=== PATIENT | female | born 1960 | race Caucasian/White ===

== ENCOUNTER 2022-08-23 07:40 | Outpatient (REF) | payer OTHER, SELFPAY ==
--- NOTE | ~2022-08-23 | US_ITS ---
EXAMINATION: US ABDOMEN COMPLETE CLINICAL INFORMATION: Other specified disease of liver. Rule out hepatic cyst. COMPARISON: None TECHNIQUE: Real-time imaging of the abdominal viscera. FINDINGS: PANCREAS: Normal. ABDOMINAL AORTA: The proximal, mid, and distal segments are normal in caliber. INFERIOR VENA CAVA: Visualized portions are normal. LIVER: The liver is normal in size. The liver contour is normal. There is diffuse increased liver parenchymal echogenicity. Within the right hepatic lobe, a 1.5 cm in maximal diameter anechoic, simple cyst is seen. There is no intrahepatic biliary duct dilatation seen. GALLBLADDER: Surgically absent. COMMON BILE DUCT: Normal in caliber measuring 0.8 cm in diameter. RIGHT KIDNEY: At the interpolar aspect laterally, a 1.0 cm in maximal diameter anechoic, simple cyst is seen. No hydronephrosis or renal calculi. The kidney measures 10.6 cm in maximum dimension. LEFT KIDNEY: Normal. No hydronephrosis. No renal calculi or focal parenchymal lesions. The kidney measures 11.9 cm in maximum dimension. SPLEEN: Normal. The spleen measures 10.6 cm in maximum dimension. FREE FLUID: None. US/US abdomen complete IMPRESSION: 1. There is generalized increase in hepatic echotexture, consistent with fatty infiltration or hepatocellular disease. Please correlate clinically. No focal hepatic mass or intrahepatic biliary dilatation is seen. 2. Simple hepatic and right renal cysts are noted, for which no imaging follow-up is recommended. 3. The gallbladder surgically absent.
== END 2022-08-23 07:41 | disposition home or self-care (01) ==
LOC: HO.US 07:40
PROVIDERS: PCP Internal Medicine; Visit Provider Physician Assistant
DX: K76.89 Other specified diseases of liver (principal)
CPT/HCPCS: 76700

== ENCOUNTER 2024-02-07 08:53 | Outpatient (AMB) | payer OTHER, SELFPAY ==
--- NOTE | 2024-02-07 08:56 | A.OFFPC_ITS ---
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 Intake Note: New patient visit Hris Manager Required: No Allergies cat dander Allergy (Unknown, Verified 02/07/24 08:56) Unknown grass Allergy (Unknown, Uncoded 02/07/24 08:56) Unknown Medication List - Last Reconciled 02/07/24 by Renetta Olmstead PA-C lisinopril 5 mg PO DAILY loratadine 10 mg PO DAILY venlafaxine 25 mg PO DAILY Tobacco use date assessed: 02/07/24 Fall risk assessment: No Falls in past year Last assessed Fall Risk: 02/07/24 Dental Screening Dental Screen Date: 02/07/24 Did you have a dental visit in the last 12 months?: Yes Did you have a dental problem in the last 6 months where you did not have access to dental care?: No Was dental information given to patient?: Patient has dentist HPI 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 She was last seen by myself at [facility] in July. She has a significant past medical history of hypertension, impaired fasting glucose, hyperlipidemia, Raynaud's, psoriasis, ulcerative colitis and history of endometrial cancer. At our last visit she was being worked up for her easy bruising and she was ultimately seen by the [facility] and diagnosed with congenital dysfibrinogenemia. 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 Given the history of mild bruising and no history of congenital bleeding disorder the recommendation was that she likely does not need prophylactic intervention for elective procedures but for procedures that do carry a significant risk of life-threatening bleeding it would be prudent to have FFP on standby. h CV: Blood pressure today in the office is WNL. She states that they have been normal at home and she is on lisinopril 5 mg. She has been working hard on her diet. Her last lipids in March were WNL. Psych: On venlafaxine for postmenopausal hot flashes. Doing well with this. Overdue for a bone density. Derm: She did see Dr. Ng in the past and he diagnosed her with psoriasis but she states that she does not think she has this and would like a 2nd opinion. She also needs a full skin check. Colonoscopy: Up-to-date, follows with [facility] for GI. Her last colonoscopy was 4 years ago and she has not had a flare-up of her ulcerative colitis in over 3 years. 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 Mammo: Up-to-date, 2022 and scheduled in February at [facility] of this year Bone density: Due. [facility] Medical History (Updated 02/07/24 @ 10:39 by Renetta Olmstead PA-C) Congenital dysfibrinogenemia Urinary incontinence Ulcerative colitis Sacral radiculitis Raynauds syndrome Psoriasis Menopausal flushing Lumbar pain with radiation down right leg Impaired fasting glucose Hyperlipidemia HTN (hypertension) Hot flashes Fatty liver Endometrial cancer Surgical History (Updated 02/07/24 @ 09:12 by Kristin Escobar CMA) History of hysterectomy History of dilatation and curettage H/O vein stripping Hx of cholecystectomy Family History (Updated 02/07/24 @ 09:15 by Kristin Escobar CMA) Mother Aneurysm HTN (hypertension) Father HTN (hypertension) Heart attack Maternal Grandmother Cancer of stomach Paternal Grandmother Cancer of breast Other Cancer of lung Cancer of skin FH: throat cancer Social History Housing: House Patient Tobacco Use Status: Former Tobacco user Cigarette Packs Per Day: 1 Years Smoked: 8 e-Cigarette/Vaping Use: Never Used service: No Current occupational status: employed 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 1. Little interest or pleasure in doing things: not at all 2. Feeling down, depressed, or hopeless: not at all 3. Trouble falling or staying asleep, or sleeping too much: not at all 4. Feeling tired or having little energy: not at all 5. Poor appetite or overeating: not at all 6. Feeling bad about yourself - or that you are a failure or have let yourself or your family down: not at all 7. Trouble concentrating on things, such as reading the newspaper or watching television: not at all 8. Moving or speaking so slowly that other people could have noticed. Or the opposite - being so fidgety or restless that you have been moving around a lot more than usual: not at all 9. Thoughts that you would be better off or of hurting yourself in some way: not at all Total score: 0 Depression Screening Interpretation: Negative Depression Screening Done: Yes [id number] - PHQ-9 Billing: Yes Source: Developed by Drs. Tunde Julio, Sheila Walker, Sony Tilley and colleagues, with an educational robert from [employer]. Thrive Questionnaire Date Thrive assessed: 02/07/24 I am a: Patient What is your living situation today?: I have a steady place to live Within the past 12 months, did the food you bought not last and you didn't have the money to get more?: Never true Within the past 12 months, did you worry whether your food would run out before you got money to buy more?: Never true Do you have trouble paying for medicines?: No Do you have trouble getting transportation to medical appointments?: No Do you have trouble paying your heating and electricity bill?: No Do you have trouble taking care of your child, family member or friend?: No Do you have trouble with day-to-day activities such as bathing, preparing meals, shopping, managing finances, etc.?: No Are you currently unemployed and looking for a job?: No Are you interested in more education?: No Please select the resources that you would like help with: None Currently or been in a relationship where the following occur: No concerns reported THRIVE Score: 0 AUDIT C Alcohol Use Questionnaire (AUDIT-C) 1. How often do you have a drink containing alcohol?: 2-4 times a month 2. How many drinks containing alcohol do you have on a typical day when you are drinking?: 1 or 2 3. How often do you have six or more drinks on one occasion?: Never Total Score: 2 SOPHIE-7 AMB Questionnaire SOPHIE-7 Date SOPHIE - 7 assessed: 02/07/24 Feeling nervous, anxious, or on edge: 0 = Not at all Not being able to stop or control worryin = Not at all Trouble relaxin = Not at all Being so restless that it is hard to sit still: 0 = Not at all Becoming easily annoyed or irritable: 0 = Not at all Feeling afraid as if something awful might happen: 0 = Not at all Source: Developed by Drs. Tunde Julio, Sheila Walker, Sony Tilley and colleagues, with an educational robert from [employer]. SOPHIE-7 Assessment Billing SOPHIE-7 Assessment Tool: SOPHIE-7 Assessment 33782 Physical exam (Primary Care) Vital Signs: Last Vital Signs Temp 98 F 02/07/24 09:05 Pulse 62 02/07/24 09:05 Resp 12 02/07/24 09:05 BP 116/70 02/07/24 09:05 Pulse Ox 99 02/07/24 09:05 Oxygen Delivery Method Room Air 02/07/24 09:05 BMI result Body Mass Index 25.3 Tobacco/Smoking Status: Tobacco use Status Tobacco use date assessed 02/07/24 02/07/24 09:17 Patient Tobacco Use Status Former Tobacco user 02/07/24 09:04 e-Cigarette/Vaping Use Never Used 02/07/24 09:04 PHQ-9: PHQ-9 Score PHQ-9: Total score 0 02/07/24 09:16 Depression Screening Interpretation: Negative Thrive Assessment: Date of Thrive Assessment Date Thrive assessed 02/07/24 02/07/24 09:16 Currently or been in a relationship where the following occur: No concerns reported Const Orientation/consciousness: patient oriented x3 HENMT Ears: hearing grossly normal bilaterally Neck Thyroid: Thyroid normal Lymphatic: no lymphadenopathy noted Resp Auscultation: clear to auscultation bilaterally Cardio Rate: regular rate Rhythm: regular rhythm Heart sounds: S1 normal heart sound present and S2 normal heart sound present GI Inspection: Yes normal to inspection Palpation (GI): Soft to palpation and Other GI palpation findings present (nontender, no cva tenderness) Auscultation: normoactive bowel sounds Rectal Exam - Female: deferred Skin General skin exam: no rashes or lesions noted Neuro General: patient oriented x3, gait normal and no focal motor deficits Assessment and Plan Assessment & Plan (1) Congenital dysfibrinogenemia: Code(s): D68.2 - Hereditary deficiency of other clotting factors Plan: Reviewed report from [facility]. We will scan into chart. (2) Ulcerative colitis: Code(s): K51.90 - Ulcerative colitis, unspecified, without complications Qualifiers: Ulcerative colitis location: unspecified ulcerative colitis location Digestive disease complication type: without complication Qualified Code(s): K51.90 - Ulcerative colitis, unspecified, without complications Plan: Continue following with [facility] (3) Impaired fasting glucose: Code(s): R73.01 - Impaired fasting glucose Plan: a1c ordered (4) HTN (hypertension): Code(s): I10 - Essential (primary) hypertension Qualifiers: Hypertension type: primary hypertension Qualified Code(s): I10 - Essential (primary) hypertension Plan: continue current plan (5) Psoriasis: Code(s): L40.9 - Psoriasis, unspecified Plan: referral to [facility]. number provided Orders: Orders Lipid Panel Today D68.2 - Hereditary deficiency of other clotting factors, I10 - Essential (primary) hypertension, K51.90 - Ulcerative colitis, unspecified, without complications, R73.01 - Impaired fasting glucose Vitamin D 1,25 dihydroxy Today D68.2 - Hereditary deficiency of other clotting factors, I10 - Essential (primary) hypertension, K51.90 - Ulcerative colitis, unspecified, without complications, R73.01 - Impaired fasting glucose Hemoglobin A1c Today D68.2 - Hereditary deficiency of other clotting factors, I10 - Essential (primary) hypertension, K51.90 - Ulcerative colitis, unspecified, without complications, R73.01 - Impaired fasting glucose Magnesium Today D68.2 - Hereditary deficiency of other clotting factors, I10 - Essential (primary) hypertension, K51.90 - Ulcerative colitis, unspecified, without complications, R73.01 - Impaired fasting glucose XR DEXA axial skeleton Today Z78.0 - Asymptomatic menopausal state Comprehensive Met. Panel Today D68.2 - Hereditary deficiency of other clotting factors, I10 - Essential (primary) hypertension, K51.90 - Ulcerative colitis, unspecified, without complications, R73.01 - Impaired fasting glucose Ferritin Today D68.2 - Hereditary deficiency of other clotting factors, I10 - Essential (primary) hypertension, K51.90 - Ulcerative colitis, unspecified, without complications, R73.01 - Impaired fasting glucose Complete Blood Count Auto Diff Today D68.2 - Hereditary deficiency of other clotting factors, I10 - Essential (primary) hypertension, K51.90 - Ulcerative colitis, unspecified, without complications, R73.01 - Impaired fasting glucose TSH reflex Free T4 Today D68.2 - Hereditary deficiency of other clotting factors, I10 - Essential (primary) hypertension, K51.90 - Ulcerative colitis, unspecified, without complications, R73.01 - Impaired fasting glucose Vitamin B12 and Folate Today D68.2 - Hereditary deficiency of other clotting factors, I10 - Essential (primary) hypertension, K51.90 - Ulcerative colitis, unspecified, without complications, R73.01 - Impaired fasting glucose IRON PROFILE Today D68.2 - Hereditary deficiency of other clotting factors, I10 - Essential (primary) hypertension, K51.90 - Ulcerative colitis, unspecified, without complications, R73.01 - Impaired fasting glucose Referrals Dermatology Referral L40.9 - Psoriasis, unspecified Medications: New lisinopril 5 mg PO DAILY 90 tabs 3RF venlafaxine 25 mg PO DAILY 90 tabs 3RF loratadine 10 mg PO DAILY 90 tabs 3RF Coding Level of Care Code Est Pt Level 4 (36885) Complex EM visit Add On G2211 Diagnoses Congenital dysfibrinogenemia D68.2 Ulcerative colitis without complications, unspecified location K51.90 Ulcerative colitis location: unspecified ulcerative colitis location Digestive disease complication type: without complication Impaired fasting glucose R73.01 Primary hypertension I10 Hypertension type: primary hypertension Psoriasis L40.9 Additional Codes SOPHIE-7 Assessment Billing - SOPHIE-7 Assessment Tool: SOPHIE-7 Assessment 11381 ([id number])
[2024-02-07 09:05] VITALS: BP 116/70; PULSE 62; RESP 12; TEMP 36.6; O2SAT 99; BMI 25.3
== END 2024-02-07 09:44 | disposition home or self-care (01) ==
PROVIDERS: PCP Physician Assistant; Visit Provider Physician Assistant
DX: D68.2 Hereditary deficiency of other clotting factors (principal); K51.90 Ulcerative colitis, unspecified, without complications; R73.01 Impaired fasting glucose; I10 Essential (primary) hypertension; L40.9 Psoriasis, unspecified
CPT/HCPCS: 99214

== ENCOUNTER 2024-02-07 10:04 | Outpatient (REF) | payer OTHER, SELFPAY ==
[2024-02-07 11:57] LABS: MANUAL DIFF FLAG NO
[2024-02-07 12:01] LABS: Basophils Percent Auto 0.2 % (0-2); Eosinophils Percent Auto 0.3 % (0-4); Hematocrit 39.5 % (37.0-47.0); Imm Gran Abs Auto 0.06 X10*3/uL (0.00-0.03); Imm Gran Pct Auto 0.6 % (0.0-0.4); Lymphocytes Absolute Auto 1.7 X10*3/uL (1.2-4.9); Lymphocytes Percent Auto 15.7 % (20-40); Mean Corpuscular HGB Conc 32.9 g/dl (31.0-35.0); Mean Corpuscular Hemoglobin 29.2 pg (27.0-33.0); Mean Corpuscular Volume 88.8 fL (80.0-98.0); Mean Platelet Volume 9.9 fL (9.4-12.3); Monocytes Absolute Auto 0.9 X10*3/uL (0.1-1.2); Monocytes Percent Auto 8.1 % (2-11); Neutrophils Absolute Auto 8.1 x10*3/uL (2.0-8.3); Neutrophils Percent Auto 75.1 % (45-73); Platelet Count 309 X10*3/uL (160-400); Red Blood Count 4.45 X10*6/uL (4.20-5.50); Red Cell Distribution Width 14.1 % (11.0-16.0); White Blood Count 10.7 X10*3/uL (4.8-10.8)
[2024-02-07 12:30] LABS: Estimated Average Glucose 117 mg/dL; Hemoglobin A1c % 5.7 % (<6.0)
[2024-02-07 13:30] LABS: Alanine Aminotransferase 21 U/L (0-31); Albumin Level 4.2 g/dL (3.5-5.0); Alkaline Phosphatase 66 U/L (39-117); Anion Gap 11 (12-20); Aspartate Amino Transferase 17 U/L (5-31); Bilirubin Total 0.4 mg/dL (0.0-1.0); Blood Urea Nitrogen 19 mg/dL (9-16); Calcium 9.5 mg/dL (8.4-10.2); Carbon Dioxide 29 mmol/L (22-29); Chloride 100 mmol/L (96-108); Cholesterol 195 mg/dL (<200); Estimated Glomerular Filt Rate > 60; Glucose Random 97 mg/dL (60-115); HDL Cholesterol 69 mg/dL (>40); Iron 100 mcg/dL (30-160); LDL Cholesterol Calculated 100 mg/dL (<100); Magnesium 2.4 mg/dL (1.6-2.6); Percent Iron Saturation 31 % (15-50); Potassium 4.2 mmol/L (3.3-5.1); Sodium 136 mmol/L (135-145); Total Iron Binding Capacity 320 mcg/dL (228-428); Total Protein 6.6 g/dL (6.5-8.0); Triglycerides 132 mg/dL (<150); Unsaturated Iron Binding 220 ug/dL
[2024-02-07 13:48] LABS: Ferritin 159 ng/mL (10-250); Folate 12.1 ng/mL (> or = 4.0); TSH reflex Free T4 0.89 uIU/mL (0.32-4.0); Vitamin B12 334 pg/mL (200-900)
[2024-02-11 17:49] LABS: VITAMIN D (1,25 OH) D3 57 pg/mL; Vit D (1,25-Dihydroxy) Total 57 pg/mL (18-72); Vitamin D (1,25 OH) D2 <8 pg/mL
== END 2024-02-07 10:05 | disposition home or self-care (01) ==
LOC: HO.WFDLDS 10:04
PROVIDERS: Visit Provider Physician Assistant
DX: D68.2 Hereditary deficiency of other clotting factors (principal); K51.90 Ulcerative colitis, unspecified, without complications; R73.01 Impaired fasting glucose; I10 Essential (primary) hypertension
CPT/HCPCS: 36415; 80053; 80061; 82607; 82652; 82728; 82746; 83036; 83540; 83735; 84443; 85025

== ENCOUNTER 2024-08-01 07:51 | Outpatient (AMB) | payer OTHER, SELFPAY ==
--- OUTSIDE RECORDS SUMMARY | 2024-08-01 07:53 | XMS_ITS | Continuity of Care Document ---
Author Organization [facility] y Address [address] [place] [address] Jeny mendoza, [address] [place] [address]- Care Team Providers Care Wirer Passenger Car Name Role Phone Renetta Bagley Primary Care Physician Encounter [facility] Date(s): 06/11/24 - 07/11/[address] [place], [place] [address] Encounter Type: Triage Allergies, Adverse Reactions, Alerts Substance Criticality Severity Reaction Reaction Severity Status aspirin Active Cats High criticality Moderate congestion Ac tive Grass Active Immunizations Given and Recorded Vaccine Date Status Refusal Reason influenza virus vaccine, inactivated 05/06/23 Ryan rded influenza virus vaccine, inactivated 05/02/22 Give n influenza virus vaccine, inactivated 05/04/16 Ryan rded SARS-CoV-2 (COVID-19) mRNA BNT-162b2 vac 06/21/21 Recorded SARS-CoV-2 (COVID-19) mRNA BNT-162b2 vac 11/04/20 Recorded SARS-CoV-2 (COVID-19) mRNA BNT-162b2 vac 10/14/20 Recorded zoster vaccine, inactivated 09/25/18 Recorded zoster vaccine, inactivated 07/14/18 Recorded pneumococcal 23-valent vaccine 06/15/16 Recorded Medications Collagen By Mouth, Daily, 0 Refills, Maintenance, 01/16/24 8:29:00 AM EDT, Partial fill upon patient request if the prescription is for a schedule II opioid drug. Start Date: 01/16/24 Status: Ordered Repeat number: 1 lisinopril 5 mg oral tablet 1, tablet, By Mouth, Daily, # 90 tablet, Refills 1, Maintenance, 06/27/23 7:31:00 PM EST, Route to Pharmacy Electronically, [id number], 168, cm, 06/27/23 12:56:00 EST, Height, 69, kg, 03/13/23 16:30:00 EDT, Dry Weight Start Date: 06/27/23 Status: Ordered Quantity: 90.0 Unit: tablet Repeat number: 1 loratadine 10 mg oral tablet 10 mg, 1, tablet, By Mouth, Daily, # 90 tablet, Refills 3, Tot. Refills 3, Maintenance, 08/01/23 1:23:00 PM EST, Route to Pharmacy Electronically, [facility]/pharmacy #[id number], Partial fill upon patient requestif the prescription is for a schedule II opioid drug., 168, cm, 08/01/23 13:02:00 EST, Height, 69, kg, 03/13/23 16:30:00 EDT, Dry Weight Start Date: 08/01/23 Status: Ordered Quantity: 90.0 Unit: tablet Repeat number: 4 Magnesium Citrate = 100 mg, By Mouth, Daily, Maintenance, 10/24/23 12:42:00 PM EDT Start Date: 10/24/23 Status: Ordered Repeat number: 1 Readi-Cat 2 Smoothie Creamy Vanilla 2% oral suspension See Instructions, If scan before 12PM; drink one bottle before bed, second bottle 90 mins before scan. If scan after noon; drink one bottle at 8 AM, second bottle 90 mins before scan. If scan after 4PM; drink one bottle 6 hours before, second bottle 90 mins before scan., # 2 each, 0 Refills, Maintenance, 04/02/24 2:23:00 PM EDT, [facility]/pharmacy #[id number], Partial fill upon patient request if the prescription is for a schedule II opioid drug., If scan before 12PM; drink one bottle before bed, second bottle 90 mins before scan. ; If scan after noon; drink one bottle at 8 AM, second bottle 90 mins before scan. If scan after 4PM; drink one bottle 6 hours before, second bottle 90 mins before scan., 166.3, cm, 03/26/24 10:10:00 EDT, Height, 70.4, kg, 03/26/24 10:10:00 EDT, Dry Weight Start Date: 04/02/24 Status: Ordered Quantity: 2.0 Unit: each Repeat number: 1 venlafaxine 25 mg oral tablet 1 tablet, By Mouth, Daily, # 90 tablet, 3 Refills, Maintenance, 11/07/23 1:04:00 PM EDT, [id number], 166.3, cm, 10/31/23 13:27:00 EDT, Height, 69.6, kg, 10/31/23 13:27:00 EDT, Dry Weight Start Date: 11/07/23 Status: Ordered Quantity: 90.0 Unit: tablet Repeat number: 1 Problem List Condition Confirmation Course Effective Dates Status Health Status Informant Hot flashes Confirmed Active Congenital dysfibrinogenemia Confirmed Active Hyperlipidemia Confirmed Active HTN (hypertension) Confirmed Active Abnormal finding on imaging Confirmed Active Impaired fasting glucose Confirmed Active Lumbar pain with radiation down right leg Confirmed Active Sacral radiculitis Confirmed Active Endometrial cancer Confirmed Active Menopausal flushing Confirmed Active Psoriasis Confirmed Active Raynaud's syndrome Confirmed Active Fatty liver Confirmed Active Ulcerative colitis Confirmed Active Urinary incontinence Confirmed Active Social History Social History Type Response Smoking Status Former smoker, quit more than 30 days ago; Other: quit 35 years ago, on pack daily; Started at age: 16; entered on: 05/02/22 Sex Sex Representation Female (finding) Patient Care team information Care Team Personnel Name: Renetta Bagley Position: Reference Physician Member Role: PCP Address: [address] [place] [id number] Telecom: Care Team Related Persons Name: ALFIE HINOJOSA Insurance Providers Guarantor name: DEBBI [facility] Information #: 1 Payer: [facility] Member Number: NA Policy Number: NA Group Number: NA
--- OUTSIDE RECORDS SUMMARY | 2024-08-01 07:53 | XMS_ITS | Continuity of Care Document ---
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 Name Role Phone Ishan MARINELLI, Renetta Davis Primary Care Physician Encounter [facility] Date(s): 06/10/24 - 07/10/[address] [place], [place] [address] Encounter Type: Triage Allergies, Adverse Reactions, [...] 7:31:00 PM EST, Route to Pharmacy Electronically, [id number], 168, cm, 06/27/23 12:56:00 EST, Height, 69, kg, 03/13/23 16:30:00 EDT, Dry Weight Start Date: 06/27/23 Status: Ordered Quantity: 90.0 Unit: tablet Repeat number: 1 loratadine 10 mg oral tablet 10 mg, 1, tablet, By Mouth, Daily, # 90 tablet, Refills 3, Tot. Refills 3, Maintenance, 08/01/23 1:23:00 PM EST, Route to Pharmacy Electronically, [facility]/pharmacy #[id number], Partial fill upon patient [...] 0 Refills, Maintenance, 04/02/24 2:23:00 PM EDT, [facility]/pharmacy #5, Partial fill upon patient request if the [...] Maintenance, 11/07/23 1:04:00 PM EDT, [id number], 166.3, cm, 10/31/23 13:27:00 EDT, Height, 69.6, [...] Position: Reference Physician Member Role: PCP Address: [address] [place] [id number] Telecom: Care Team Related Persons Name: ALFIE HINOJOSA Insurance Providers Guarantor name: DEBBI [facility] Health Plan Information #: 1 Payer: [facility] Member Number: NA Policy Number: NA Group Number: NA
--- OUTSIDE RECORDS SUMMARY | 2024-08-01 07:53 | XMS_ITS | Continuity of Care Document ---
Author Organization [facility] ter Address [address] [place] [address]- Care Team Providers Care Final Assembly Worker Name Role Phone Renetta Bagley Primary Care Physician Encounter [facility] [id number] Date(s): 05/20/24 - 07/17/[address] [id number] Attending Physician: Delbert Ceron MD Admitting Physician: Delbert Ceron MD Encounter Type: Preadmit Daystay Allergies, Adverse Reactions, Alerts Substance Criticality Severity [...] 7:31:00 PM EST, Route to Pharmacy Electronically, [id number], 168, cm, 06/27/23 12:56:00 EST, Height, 69, kg, 03/13/23 16:30:00 EDT, Dry Weight Start Date: 06/27/23 Status: Ordered Quantity: 90.0 Unit: tablet Repeat number: 1 loratadine 10 mg oral tablet 10 mg, 1, tablet, By Mouth, Daily, # 90 tablet, Refills 3, Tot. Refills 3, Maintenance, 08/01/23 1:23:00 PM EST, Route to Pharmacy Electronically, [facility]/pharmacy #[id number], Partial fill upon patient requestif [...] 0 Refills, Maintenance, 04/02/24 2:23:00 PM EDT, [facility]/pharmacy #[id number], Partial fill upon patient request [...] Maintenance, 11/07/23 1:04:00 PM EDT, [id number], 166.3, cm, 10/31/23 13:27:00 EDT, Height, 69.6, [...] Position: Reference Physician Member Role: PCP Address: [address] [place] [address] Telecom: Care Team Related Persons Name: ALFIE HINOJOSA Insurance Providers Guarantor name: DEBBI HINOJOSA Health Plan Information #: 1 [facility] Member Number: [id number] Policy Number: NA Group Number: [id number] Health Plan Information #: 2 [facility] Member Number: [id number] Policy Number: NA Group Number: NA
--- NOTE | 2024-08-01 08:06 | MHC.PC.OV ---
Vital Signs 08/01/24 08:08 Height 5 ft 5.43 in Weight 167 lb 6 oz BMI 27.5 BP 112/68 Blood Pressure Location Rt brachial Position Sitting Pulse 68 Pulse Source Pulse Oximeter Pulse Oximetry (%) 98 Oxygen Delivery Method Room Air Intake Visit Reasons: CPE Intake Note: Physical [employer] Required: No Allergies cat dander Allergy (Unknown, Verified 08/01/24 08:06) Unknown grass Allergy (Unknown, Uncoded 08/01/24 08:06) Unknown Tobacco use date assessed: 02/07/24 Fall risk assessment: No Falls in past year Last assessed Fall Risk: 08/01/24 Dental Screening Dental Screen Date: 02/07/24 HPI CPE HPI Details Patient is a 63-year-old female who presents today initially for a physical but she does have some concerns. She has a significant past medical history of hypertension, impaired fasting glucose, hyperlipidemia, Raynaud's, psoriasis, ulcerative colitis and history of endometrial cancer. At our last visit she was being worked up for her easy bruising and she was ultimately seen by the [facility] and diagnosed with congenital dysfibrinogenemia. -she states since our last visit she has been dealing with shortness a breath with exertion, intermittent chest pains, lower leg swelling and sometimes discomfort, increased back pain and arthralgias. 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 Given the history of mild bruising and no history of congenital bleeding disorder the recommendation was that she likely does not need prophylactic intervention for elective procedures but for procedures that do carry a significant risk of life-threatening bleeding it would be prudent to have FFP on standby. CV: Blood pressure today in the office is WNL. She states that they have been normal at home and she is on lisinopril 5 mg. She has been working hard on her diet. Her last lipids in March were WNL. She recently went for a preop for clearance for back surgery (by Dr. Ceron) and complained of dutton. She had a nuclear stress test and echo and states that it was normal. -waiting for NM stress test to be faxed. -pulled echo and it was wnl. -believes last year she had a heart CT and thinks it was normal. we will try to get report of this. -2 months ago noted sob with exertion. She states that at times she attributes this to deconditioning but finds it odd that she can not go up a flight of stairs without needing to catch her breath. This has only been going on for about 1-2 months. She states that this is different from her baseline. She does not get chest pain with the exertion. She does sometimes get chest pain without exertion lasting 1-2 mins. This happens very rarely (just a few times that she can recall). She states it will happen mostly when she is lying down at night. There is no associated symptoms of dizziness, diaphoresis or nausea. She does get intermittent palpitations. She states again that this is rare and does not cause any other associated symptoms and last just a short time. She says it just concerns her because she never really had palpitations and now over the last few months they are present. -maternal grandfather had SC and father had SC at age 58 and from this. -she is a former smoker x 8 years, 1 ppd. Vasc: Over the last few months or so she has also noticed an increase in varicosities of the bilateral lower legs. Intermittently getting discomfort in the legs with increased discomfort on the left calf. No erythema. She states that the legs look pretty similar. No recent travel. She has had the vein stripped in the past and does not really want to do this again but does note that the varicosities are at times painful. Musculoskeletal: She follows with [facility] for injections of right knee and hip prn about q 3 months. She wanted to treat it a little more naturally and got adjusted by a chiropractor a few weeks ago and now has bilateral knee pain. She states this pain is now new and feels like her joints are swollen. Hard time getting getting up from the floor because of knee weakness, going downstairs and upstairs feels painful. She states they sometimes feel weak. The pain is constant. She states the stiffness improves with movement but not the pain. She has not yet called [facility] to discuss this. She does have a history of psoriasis but states it was just that 1 time and has not had any flare-ups. Follows with [facility] for low back pain x years. Going for lumbar spine spine fusion in October 2024. She does get pain radiating down the legs. Psych: On venlafaxine for postmenopausal hot flashes. Doing well with this. Derm: Follows with dermatology for full skin check. Colonoscopy: Up-to-date, follows with [facility] for GI. Her last colonoscopy was 2019 and she has not had a flare-up of her ulcerative colitis in over 3 years. Pap: Sees Dr. Daly for sheet catcher Oncology and regular surveillance of her endometrial cancer. Mammo: Up-to-date, 2023 and scheduled in February at [facility] of this year Bone density: UTD- normal. [facility] Medical History (Updated 08/01/24 @ 11:11 by Renetta Olmstead PA-C) Congenital dysfibrinogenemia Urinary incontinence Ulcerative colitis Sacral radiculitis Raynauds syndrome Psoriasis Menopausal flushing Lumbar pain with radiation down right leg Impaired fasting glucose Hyperlipidemia HTN (hypertension) Hot flashes Fatty liver Endometrial cancer Surgical History History of hysterectomy History of dilatation and curettage H/O vein stripping Hx of cholecystectomy Family History Mother Aneurysm HTN (hypertension) Father HTN (hypertension) Heart attack Maternal Grandmother Cancer of stomach Paternal Grandmother Cancer of breast Other Cancer of lung Cancer of skin FH: throat cancer Social History (Updated 08/01/24 @ 08:12 by Kristin Escobar CMA) Housing: House Alcohol intake: current Patient Tobacco Use Status: Former Tobacco user Cigarette Packs Per Day: 1 Years Smoked: 8 e-Cigarette/Vaping Use: Never Used service: No Current occupational status: employed 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 1. Little interest or pleasure in doing things: not at all 2. Feeling down, depressed, or hopeless: not at all 3. Trouble falling or staying asleep, or sleeping too much: several days 4. Feeling tired or having little energy: not at all 5. Poor appetite or overeating: not at all 6. Feeling bad about yourself - or that you are a failure or have let yourself or your family down: not at all 7. Trouble concentrating on things, such as reading the newspaper or watching television: not at all 8. Moving or speaking so slowly that other people could have noticed. Or the opposite - being so fidgety or restless that you have been moving around a lot more than usual: several days 9. Thoughts that you would be better off or of hurting yourself in some way: not at all Total score: 2 Depression Screening Interpretation: Negative Depression Screening Done: Yes 25458 - PHQ-9 Billing: Yes Source: Developed by Drs. Tunde Julio, Sheila Walker, Sony Tilley and colleagues, with an educational robert from [employer]. Thrive Questionnaire Date Thrive assessed: 07/25/24 I am a: Patient What is your living situation today?: I have a steady place to live Within the past 12 months, did the food you bought not last and you didn't have the money to get more?: Never true Within the past 12 months, did you worry whether your food would run out before you got money to buy more?: Never true Do you have trouble paying for medicines?: No Do you have trouble getting transportation to medical appointments?: No Do you have trouble paying your heating and electricity bill?: No Do you have trouble taking care of your child, family member or friend?: No Do you have trouble with day-to-day activities such as bathing, preparing meals, shopping, managing finances, etc.?: No Are you currently unemployed and looking for a job?: No Are you interested in more education?: No Please select the resources that you would like help with: None Currently or been in a relationship where the following occur: No concerns reported THRIVE Score: 0 AUDIT C Alcohol Use Questionnaire (AUDIT-C) 1. How often do you have a drink containing alcohol?: 2-4 times a month 2. How many drinks containing alcohol do you have on a typical day when you are drinking?: 1 or 2 3. How often do you have six or more drinks on one occasion?: Never Total Score: 2 SOPHIE-7 AMB Questionnaire SOPHIE-7 Date SOPHIE - 7 assessed: 08/01/24 Feeling nervous, anxious, or on edge: 0 = Not at all Not being able to stop or control worryin = Not at all Worrying too much about different things: 0 = Not at all Trouble relaxin = Not at all Being so restless that it is hard to sit still: 0 = Not at all Becoming easily annoyed or irritable: 0 = Not at all Feeling afraid as if something awful might happen: 0 = Not at all Total SOPHIE-7 score (0-4 normal; 5-9 mild; 10-14 moderate; 15-21 severe): 0 Source: Developed by Drs. Tunde Julio, Sheila Walker, Sony Tilley and colleagues, with an educational robert from [employer]. SOPHIE-7 Assessment Billing SOPHIE-7 Assessment Tool: SOPHIE-7 Assessment 77695 Physical exam (Primary Care) Vital Signs: Last Vital Signs Pulse 68 08/01/24 08:08 BP 112/68 08/01/24 08:08 Pulse Ox 98 08/01/24 08:08 Oxygen Delivery Method Room Air 08/01/24 08:08 BMI result Body Mass Index 27.5 Tobacco/Smoking Status: Tobacco use Status Tobacco use date assessed 02/07/24 08/01/24 08:12 Patient Tobacco Use Status Former Tobacco user 08/01/24 08:12 e-Cigarette/Vaping Use Never Used 08/01/24 08:12 PHQ-9: PHQ-9 Score PHQ-9: Total score 2 08/01/24 08:12 Depression Screening Interpretation: Negative Thrive Assessment: Date of Thrive Assessment Date Thrive assessed 07/25/24 08/01/24 08:12 Currently or been in a relationship where the following occur: No concerns reported Const Orientation/consciousness: patient oriented x3 HENMT Ears: hearing grossly normal bilaterally Neck Thyroid: Thyroid normal Lymphatic: no lymphadenopathy noted Resp Auscultation: clear to auscultation bilaterally Cardio Rate: regular rate Rhythm: regular rhythm Heart sounds: S1 normal heart sound present and S2 normal heart sound present GI Inspection: Yes normal to inspection Palpation (GI): Soft to palpation and Other GI palpation findings present (nontender, no cva tenderness) Auscultation: normoactive bowel sounds Rectal Exam - Female: deferred Back/Spine/Pelvis Thoracic/Lumbar Spine: thoracic and lumbar spine normal to inspection Skin General skin exam: no rashes or lesions noted Neuro General: patient oriented x3, gait normal and no focal motor deficits Extrem Other: Trace pitting edema noted of the bilateral lower legs. Multiple varicosities noted bilaterally. There is some left-sided calf tenderness with palpation however no induration or increased warmth. No overlying erythema. Legs are symmetrical in size. Full range of motion of the knees however there is discomfort. Results Reviewed Results Reviewed: Laboratory Tests 02/07/24 02/07/24 10:06 10:08 WBC 10.7 RBC 4.45 Hgb 13.0 Hct 39.5 Plt Count 309 Sodium 136 Potassium 4.2 Chloride 100 Carbon Dioxide 29 Anion Gap 11 L BUN 19 H Creatinine 0.71 Estimated GFR > 60 Random Glucose 97 Estimat Average Glucose 117 Hemoglobin A1c % 5.7 Calcium 9.5 Magnesium 2.4 Iron 100 AST 17 ALT 21 Alkaline Phosphatase 66 Total Protein 6.6 Albumin 4.2 Triglycerides 132 Cholesterol 195 LDL Cholesterol, Calc 100 H HDL Cholesterol 69 Vitamin B12 334 1,25 Dihydroxy Vit D 57 Coding Level of Care Code Est Pt Level 5 (76288) Complex EM visit Add On G2211 Diagnoses DUTTON (dyspnea on exertion) R06.09 Atypical chest pain R07.89 Former cigarette smoker Z87.891 Palpitations R00.2 Pain and swelling of lower leg, unspecified laterality M79.669; M79.89 Laterality: unspecified laterality Bilateral knee pain M25.561; M25.562 Congenital dysfibrinogenemia D68.2 Ulcerative colitis without complications, unspecified location K51.90 Ulcerative colitis location: unspecified ulcerative colitis location Digestive disease complication type: without complication Impaired fasting glucose R73.01 Additional Codes SOPHIE-7 Assessment Billing - SOPHIE-7 Assessment Tool: SOPHIE-7 Assessment 06474 ([id number]) PHQ-9 - 69235 - PHQ-9 Billing: Yes ([id number]) Assessment & Plan Assessment & Plan (1) DUTTON (dyspnea on exertion): Code(s): R06.09 - Other forms of dyspnea Category: Medical Plan: Chest x-ray ordered today. She will call me when she gets this done at [facility]. Pulmonary function testing ordered Labs ordered today We will get the CT of the heart and her nuclear stress test. Referral to cardiology for consultation (2) Atypical chest pain: Code(s): R07.89 - Other chest pain Category: Medical Plan: As above (3) Former cigarette smoker: Code(s): Z87.891 - Personal history of nicotine dependence Category: Medical Plan: As above (4) Palpitations: Code(s): R00.2 - Palpitations Category: Medical Plan: Holter monitor ordered and labs ordered (5) Pain and swelling of lower leg: Code(s): M79.669 - Pain in unspecified lower leg; M79.89 - Other specified soft tissue disorders Category: Medical Qualifiers: Laterality: unspecified laterality Qualified Code(s): M79.669 - Pain in unspecified lower leg; M79.89 - Other specified soft tissue disorders Plan: Ultrasound ordered. We will follow up pending test results (6) Bilateral knee pain: Code(s): M25.561 - Pain in right knee; M25.562 - Pain in left knee Category: Medical Plan: We will follow up with ortho (7) Congenital dysfibrinogenemia: Code(s): D68.2 - Hereditary deficiency of other clotting factors Category: Medical Plan: Stable. (8) Ulcerative colitis: Code(s): K51.90 - Ulcerative colitis, unspecified, without complications Category: Medical Qualifiers: Ulcerative colitis location: unspecified ulcerative colitis location Digestive disease complication type: without complication Qualified Code(s): K51.90 - Ulcerative colitis, unspecified, without complications Plan: No flare-ups. Has been stable for years. (9) Impaired fasting glucose: Code(s): R73.01 - Impaired fasting glucose Category: Medical Plan: A1c ordered Plan 60 minutes spent in [id number] time today discussing the list of her concerns, reviewing the chart and discussing our plan. We also reviewed signs and symptoms that would require emergent medical treatment. Orders: Orders Complete Blood Count Auto Diff Today R00.2 - Palpitations, R06.09 - Other forms of dyspnea, R07.89 - Other chest pain, Z87.891 - Personal history of nicotine dependence CRP High Sensitivity Today R00.2 - Palpitations, R06.09 - Other forms of dyspnea, R07.89 - Other chest pain, Z87.891 - Personal history of nicotine dependence Erythrocyte Sedimentation Rate Today R00.2 - Palpitations, R06.09 - Other forms of dyspnea, R07.89 - Other chest pain, Z87.891 - Personal history of nicotine dependence IRON PROFILE Today R00.2 - Palpitations, R06.09 - Other forms of dyspnea, R07.89 - Other chest pain, Z87.891 - Personal history of nicotine dependence Comprehensive Met. Panel Today R00.2 - Palpitations, R06.09 - Other forms of dyspnea, R07.89 - Other chest pain, Z87.891 - Personal history of nicotine dependence CASANDRA Reflex Titer and Pattern Today R00.2 - Palpitations, R06.09 - Other forms of dyspnea, R07.89 - Other chest pain, Z87.891 - Personal history of nicotine dependence Rheumatoid Factor Today R00.2 - Palpitations, R06.09 - Other forms of dyspnea, R07.89 - Other chest pain, Z87.891 - Personal history of nicotine dependence TSH reflex Free T4 Today R00.2 - Palpitations, R06.09 - Other forms of dyspnea, R07.89 - Other chest pain, Z87.891 - Personal history of nicotine dependence Lyme IgG/IgM w/reflex to WB Today R00.2 - Palpitations, R06.09 - Other forms of dyspnea, R07.89 - Other chest pain, Z87.891 - Personal history of nicotine dependence XR chest 2V Today R00.2 - Palpitations, R06.09 - Other forms of dyspnea, R07.89 - Other chest pain, Z87.891 - Personal history of nicotine dependence ECG holter monitor 24 hour Today R00.2 - Palpitations, R06.09 - Other forms of dyspnea, R07.89 - Other chest pain, Z87.891 - Personal history of nicotine dependence PFT pulmonary function test Today R00.2 - Palpitations, R06.09 - Other forms of dyspnea, R07.89 - Other chest pain, Z87.891 - Personal history of nicotine dependence Hemoglobin A1c Today R73.01 - Impaired fasting glucose US venous duplex LE BI Today M79.669 - Pain in unspecified lower leg, M79.89 - Other specified soft tissue disorders Referrals Cardiology Referral R00.2 - Palpitations, R06.09 - Other forms of dyspnea, R07.89 - Other chest pain, Z87.891 - Personal history of nicotine dependence Patient Instructions: chest xray at [facility]. call when done labs today, no need to fast ultrasound dept will call for leg ultrasounds- if you do not hear in a week call me ref to [facility] -they should call you but if you do not hear call me holter monitor- they again should call to book but let me know pulmonary function tests will call to book you-this test books out call arti
[2024-08-01 08:08] VITALS: BP 112/68; PULSE 68; O2SAT 98; BMI 27.5
== END 2024-08-01 09:01 | disposition home or self-care (01) ==
PROVIDERS: PCP Physician Assistant; Visit Provider Physician Assistant
DX: R06.09 Other forms of dyspnea (principal); D68.2 Hereditary deficiency of other clotting factors; K51.90 Ulcerative colitis, unspecified, without complications; R07.89 Other chest pain; Z87.891 Personal history of nicotine dependence; R00.2 Palpitations; M79.669 Pain in unspecified lower leg; M79.89 Other specified soft tissue disorders; M25.561 Pain in right knee; M25.562 Pain in left knee; R73.01 Impaired fasting glucose

== ENCOUNTER → 2024-08-01 07:51 | Outpatient (BNVA) | payer OTHER, SELFPAY | PROVIDERS: PCP Physician Assistant; Visit Provider Physician Assistant | DX: R06.09 Other forms of dyspnea (principal); R07.89 Other chest pain; R00.2 Palpitations; M79.669 Pain in unspecified lower leg; M79.89 Other specified soft tissue disorders; M25.561 Pain in right knee; M25.562 Pain in left knee; D68.2 Hereditary deficiency of other clotting factors; K51.90 Ulcerative colitis, unspecified, without complications; R73.01 Impaired fasting glucose; Z87.891 Personal history of nicotine dependence | CPT/HCPCS: 96127 ==

== ENCOUNTER 2024-08-01 09:06 | Outpatient (REF) | payer OTHER, SELFPAY ==
[2024-08-01 11:12] LABS: MANUAL DIFF FLAG NO
[2024-08-01 11:20] LABS: Basophils Absolute Auto 0.1 X10*3/uL (0.0-0.2); Basophils Percent Auto 0.6 % (0-2); Eosinophils Absolute Auto 0.2 X10*3/uL (0.0-0.4); Eosinophils Percent Auto 1.8 % (0-4); Imm Gran Abs Auto 0.03 X10*3/uL (0.00-0.03); Imm Gran Pct Auto 0.4 % (0.0-0.4); Lymphocytes Absolute Auto 1.8 X10*3/uL (1.2-4.9); Lymphocytes Percent Auto 22.2 % (20-40); Mean Corpuscular HGB Conc 32.5 g/dl (31.0-35.0); Mean Corpuscular Hemoglobin 29.4 pg (27.0-33.0); Mean Corpuscular Volume 90.5 fL (80.0-98.0); Mean Platelet Volume 9.9 fL (9.4-12.3); Monocytes Absolute Auto 0.6 X10*3/uL (0.1-1.2); Monocytes Percent Auto 7.6 % (2-11); Neutrophils Absolute Auto 5.6 x10*3/uL (2.0-8.3); Neutrophils Percent Auto 67.4 % (45-73); Platelet Count 318 X10*3/uL (160-400); Red Blood Count 4.42 X10*6/uL (4.20-5.50); White Blood Count 8.3 X10*3/uL (4.8-10.8)
[2024-08-01 11:35] LABS: Estimated Average Glucose 123 mg/dL; Hemoglobin A1C 135.8009 umol/L; Hemoglobin A1c % 5.9 % (<6.0); Total Hemoglobin (HGBA1C) 3283.7922 umol/L
[2024-08-01 11:44] LABS: Rheumatoid Factor < 13.0 IU/mL (<15.0)
[2024-08-01 12:14] LABS: Erythrocyte Sedimentation Rate 7 MM/HR (0-20)
[2024-08-01 12:39] LABS: Alanine Aminotransferase 34 U/L (0-31); Albumin Level 4.1 g/dL (3.5-5.0); Alkaline Phosphatase 73 U/L (39-117); Anion Gap 8 (12-20); Aspartate Amino Transferase 28 U/L (5-31); Bilirubin Total 0.4 mg/dL (0.0-1.0); Blood Urea Nitrogen 16 mg/dL (9-16); Calcium 8.8 mg/dL (8.4-10.2); Carbon Dioxide 30 mmol/L (22-29); Chloride 106 mmol/L (96-108); Estimated Glomerular Filt Rate > 60; Glucose Random 97 mg/dL (60-115); Iron 72 mcg/dL (30-160); Percent Iron Saturation 24 % (15-50); Potassium 4.2 mmol/L (3.3-5.1); Sodium 140 mmol/L (135-145); TSH reflex Free T4 1.03 uIU/mL (0.32-4.0); Total Iron Binding Capacity 305 mcg/dL (228-428); Total Protein 6.8 g/dL (6.5-8.0); Unsaturated Iron Binding 233 ug/dL
[2024-08-02 19:13] LABS: CRP High Sensitivity 2.5 mg/L
[2024-08-02 22:24] LABS: Lyme Abs Screen <0.90 index
[2024-08-06 13:39] LABS: Anti Nuclear Antibody Screen NEGATIVE (NEGATIVE)
== END 2024-08-01 09:07 | disposition home or self-care (01) ==
LOC: HO.WFDLDS 09:06
PROVIDERS: Visit Provider Physician Assistant
DX: R06.09 Other forms of dyspnea (principal); R07.89 Other chest pain; Z87.891 Personal history of nicotine dependence; R00.2 Palpitations; R73.01 Impaired fasting glucose
CPT/HCPCS: 36415; 80053; 83036; 83540; 84443; 85025; 85652; 86038; 86141; 86431; 86617; 86618

== ENCOUNTER → 2024-08-13 10:17 | Outpatient (BNV) | payer OTHER, SELFPAY | PROVIDERS: PCP Physician Assistant; Visit Provider Radiology Diagnostic Radiology | DX: M79.606 Pain in leg, unspecified (principal) | CPT/HCPCS: 93970 ==

== ENCOUNTER 2024-09-02 09:29 | Outpatient (REF) | payer SELFPAY ==
--- OUTSIDE RECORDS SUMMARY | 2024-09-02 09:31 | XMS_ITS | Continuity of Care Document ---
Author Organization [facility] Address [address] [place] [address] Jeny [address], [address] [place] [address]- Care Team Providers Care Clinical Support Specialist Name Role Phone Ishan MARINELLI, Renetta Davis Primary Care Physician [place] [facility] [place] - 09/01/[address] [place], [place] [address] Encounter Type: Triage Allergies, Adverse Reactions, Alerts [...] 7:31:00 PM EST, Route to Pharmacy Electronically, [id number], 168, cm, 06/27/23 12:56:00 EST, Height, 69, kg, 03/13/23 16:30:00 EDT, Dry Weight Start Date: 06/27/23 Status: Ordered Quantity: 90.0 Unit: tablet Repeat number: 1 loratadine 10 mg oral tablet 10 mg, 1, tablet, By Mouth, Daily, # 90 tablet, Refills 3, Tot. Refills 3, Maintenance, 08/01/23 1:23:00 PM EST, Route to Pharmacy Electronically, [facility]/pharmacy #[id number], Partial fill upon patient requestif the [...] 0 Refills, Maintenance, 04/02/24 2:23:00 PM EDT, [facility]/pharmacy #[id number], Partial fill upon patient request if the [...] Maintenance, 11/07/23 1:04:00 PM EDT, [id number], 166.3, cm, 10/31/23 13:27:00 EDT, Height, 69.6, [...] Position: Reference Physician Member Role: PCP Address: [address] [place] [id number] Telecom: Care Team Related Persons Name: ALFIE HINOJOSA Insurance Providers Guarantor name: DEBBI ASHISH Health Plan Information #: 1 Payer: MEDICARE PART B OUTPT Member Number: NA Policy Number: NA Group Number: NA Health Plan Information #: 2 Payer: NA Member Number: NA Policy Number: NA Group Number: NA
--- OUTSIDE RECORDS SUMMARY | 2024-09-02 09:31 | XMS_ITS | Continuity of Care Document ---
Author Organization [facility] Address [address] [place] [address] Jeny mendoza, [address] [place] [address]- Care Team Providers Care Mobile Mechanic Name Role Phone Ishan MARINELLI, Renetta Davis Primary Care Physician Encounter [facility] [place] Date(s): 08/01/24 - 08/31/[address] [place], [place] [address] Encounter Type: Triage Allergies, Adverse Reactions, [...] 7:31:00 PM EST, Route to Pharmacy Electronically, [facility] [id number], 168, cm, 06/27/23 12:56:00 EST, Height, 69, kg, 03/13/23 16:30:00 EDT, Dry Weight Start Date: 06/27/23 Status: Ordered Quantity: 90.0 Unit: tablet Repeat number: 1 loratadine 10 mg oral tablet 10 mg, 1, tablet, By Mouth, Daily, # 90 tablet, Refills 3, Tot. Refills 3, Maintenance, 08/01/23 1:23:00 PM EST, Route to Pharmacy Electronically, [facility]/pharmacy #[id number], Partial fill upon patient requestif the [...] 0 Refills, Maintenance, 04/02/24 2:23:00 PM EDT, [facility]/pharmacy #5, Partial fill upon patient request if [...] Maintenance, 11/07/23 1:04:00 PM EDT, [id number], 166.3, cm, 10/31/23 13:27:00 EDT, Height, 69.6, [...] Position: Reference Physician Member Role: PCP Address: [address] [place] [id number] Telecom: Care Team Related Persons Name: ALFIE HINOJOSA Insurance Providers Guarantor name: DEBBI ASHISH Health Plan Information #: 1 Payer: MEDICARE PART B OUTPT Member Number: NA Policy Number: NA Group Number: NA Health Plan Information #: 2 Payer: NA Member Number: NA Policy Number: NA Group Number: NA
--- OUTSIDE RECORDS SUMMARY | 2024-09-02 09:31 | XMS_ITS | Continuity of Care Document ---
Author Organization [place] - [facility], [facility] PT Address [address] [place] [address] Care Team Providers Care Parks And Recreation Worker Name Role Phone FRIEDA GUILLORY Referring Provider [phone] Assessment Encounter Date Assessment Date Assessment LastModified by Organization Details LastModified Time 08/26/2024 08/26/2024 Assessment: Patient had some c/o R proximal posterior thigh/hamstring pain with hip exercises, and Tobias horse in hamstrings with standing curls. Modified R ITB & hamstring stretch to improve technique & tolerance. Added massage roller to gluts/hams & ITB due to c/o pain/tightness during session. Plan: Continued PT is recommended at 2x/week for 6 weeks to decrease pain, improve hip strength, and increase participation in functional activities. tracy Not available 08/27/2024 06:43:33 Plan of Treatment Reminders Order Date Submit Date Provider Last Modified By Organization Details Last Modified Time Details Appointments NEW PATIENT 15 2024 01:30P M Tawny Cabral PA-C Not available Not available Not available PT FOLLOW-U P 2024 03:30P M Veena Romero, FINNISH RUBBER Not available Not available Not available PT FOLLOW-U P 2024 02:30P M Veena Romero, FINNISH RUBBER Not available Not available Not available PT FOLLOW-U P 2024 04:30P M Pat Gan, PT Not available Not available Not available PT FOLLOW-U P 2024 02:30P M Veena Romero, FINNISH RUBBER Not available Not available Not available PT FOLLOW-U P 2024 11:30A M Veena Romero, FINNISH RUBBER Not available Not available Not available PT FOLLOW-U P 2024 04:00P M Pat Gan, PT Not available Not available Not available PT FOLLOW-U P 2024 02:00P M Veena Romero, FINNISH RUBBER Not available Not available Not available PT FOLLOW-U P 2024 04:00P M Veena Romero, FINNISH RUBBER Not available Not available Not available PT FOLLOW-U P 2024 09:30A M Pat Malik, PT Not available Not available Not available Lab None recorded . Referral None recorded . Procedures None recorded . Surgeries None recorded . Imaging None recorded . Medication Orders None recorded . Patient TargetsNo targets recorded. Patient InstructionsNo instructions recorded. Reason for Referral None Reported. Problems Name Problem SNOMED Code Status Onset Date Resolution Date Notes Provider Name and Address Organization Details Recorded Time No complaints 019374542 Active Status : 'A'; Not Available [facility] 4 09:21:00 Osteoarthr itis of right knee joint 8348659712569 00 Active 2023 Tawny Cabral PA-C [address], [place], [address] , [facility] 4 19:20:04 Trochanter ic bursitis of right hip 4792624451091 00 Active 2023 Tawny Cabral PA-C [address], [place], [address] , [facility] 4 19:20:05 Problem Notes None recorded. Procedures Surgical History Date Name Laterality Status Provider Name and Address Organization Details Recorded Time 5 16132 Therapeutic Exercise (1:1) completed Pat Gan, PT [address], [place], [address], [facility] 08/27/2024 06:44:07 5 40436 Therapeutic Exercise (1:1) completed Pat Gan, PT [address], [place], [address], [facility] 2024 00:12:25 5 06508: Low complexity PT Eval completed Pat Gan, PT [address], [place], [address], [facility] 2024 00:12:29 5 G8417 BMI Above Upper Parameters, F/U Documented completed Pat Gan, PT [address], [place], [address], [facility] 2024 00:17:14 5 G8427 Current Medication Documented completed Pat Gan, PT [address], [place], [address], [facility] 2024 00:17:19 5 Sports Knee 4&1 completed Tawny Revstanislaw, PA-C [address], [place], [address], [facility] 08/16/2024 09:32:59 5 JZHip Inj completed Tawny Revord, PA-C [address], [place], [address], [facility] 08/16/2024 09:33:14 4 Sports Knee 4&1 completed Tawny Revstanislaw, PA-C [address], [place], [address], [facility] 04/26/2024 09:33:58 4 Hip Kenalog 1cc Injection, L/R completed Tawny Revord, PA-C [address], [place], [address], [facility] 04/26/2024 09:33:55 4 Sports Knee 4&1 completed Tawny Revord, PA-C [address], [place], [address], [facility] 01/28/2024 19:19:25 4 Hip Kenalog 1cc Injection, L/R completed Tawny Revord, PA-C [address], [place], [address], [facility] [place] [facility] 01/28/2024 19:19:21 Imaging Results None recorded. Procedure Notes None recorded. Medical Equipment None Reported. Allergies Allergen ID Allergen Name Allergen Category Reaction Reaction Severity Criticality Documentation Date Start Date Code Code System Note Provider Name and Address Organization Details Recorded Time 371870 Grass pollen (substanc e) environme nt,medica tion Not available Not available Not available 09/18/20232021 94506 7009 SNOMED Not Available [facility] 15:13:30 482345 cat dander environme nt Not available Not available Not available 01/29/2024 21080 UNK KAYLMAYNOR L'HEUREUX [facility] 13:11:14 Medications Name Sig Start Date Stop Date Status Note LastModified by Organization Details LastModified Time venlafaxine 25 mg tablet TAKE 1 TABLET BY MOUTH EVERY DAY active Not Available Not Available No t Available fluorouraci l 5 % topical cream PLEASE SEE ATTACHED FOR DETAILED DIRECTION S 01/28 completed Not Available Not Available Not Available sulfamethox azole 800 mg-trimetho prim 160 mg tablet TAKE 1 TABLET BY MOUTH TWICE A DAY FOR 3 DAYS 08/16 completed Not Available Not Available Not Available imiquimod 5 % topical cream packet APPLY TWICE A WEEK AT BED TIME X16 WEEKS active Not Available Not Available No t Available benzonatate 100 mg capsule TAKE 1 TO 2 CAPSULES BY MOUTH 3 TIMES A DAY NEEDED FOR COUGH active Not Available Not Available No t Available polymyxin B sulfate 10,000 unit-trimet hoprim 1 mg/mL eye drops INSTILL 1 DROP INTO EACH AFFECTED EYE EVERY 3 HOURS FOR 8 DAYS 08/16 completed Not Available Not Available Not Available betamethaso ne dipropionat e 0.05 % topical cream PLEASE SEE ATTACHED FOR DETAILED DIRECTION S 01/28 completed Not Available Not Available Not Available ammonium lactate 12 % topical cream APPLY TO UPPER ARMS TWICE A DAY 01/28 completed Not Available Not Available Not Available lisinopril 5 mg tablet TAKE 1 TABLET ORALLY DAILY active Not Available Not Available No t Available methylpredn isolone 4 mg tablets in a dose pack TAKE 6 TABLETS ON DAY 1 DIRECTED ON PACKAGE AND DECREASE BY 1 TAB EACH DAY FOR A TOTAL OF 6 DAYS 01/28 completed Not Available Not Available Not Available loratadine 10 mg tablet TAKE 1 TABLET ORALLY DAILY active Not Available Not Available No t Available amoxicillin 875 mg-potassiu m clavulanate 125 mg tablet TAKE 1 TABLET BY MOUTH EVERY 12 HOURS FOR 7 DAYS 01/28 completed Not Available Not Available Not Available amoxicillin 500 mg-potassiu m clavulanate 125 mg tablet TAKE 1 TABLET BY MOUTH EVERY 8 HOURS active Not Available Not Available No t Available sulfasalazi ne sulfaSALA zine 500MG Tablet 01/28 completed Statu s: 'Curr ent'; Not Available Not Available Not Available diclofenac 1 % topical gel APPLY 2-3 GRAMS TO AFFECTED AREA TWICE DAY NEEDED FOR PAIN 01/28 completed Not Available Not Available Not Available Readi-Cat 2 2 % (w/v) oral suspension PLEASE SEE ATTACHED FOR DETAILED DIRECTION S 08/16 completed Not Available Not Available Not Available Vitals None Recorded Social History Question Answer Notes LastModified by Organizat ion Details LastModified Time Tobacco Smoking Status Never Smoker TESHA josé [place] - [place] [facility] 01/29/2024 13:11:37 What Is Your Level Of Alcohol Consumption? Occasional Information not available 01/29/2024 How Many Times Per Week Do You Consume Alcohol? Less Than 1 Time Per Week Information not available 01/29/2024 Have You Ever Been Counseled For Unhealthy Alcohol Use? No Information not available 01/29/2024 What Is Your Relationship Status? Information not available 01/29/2024 Do You Use Any Illicit Or Recreational Drugs? No Information not available 01/29/2024 Do You Or Have You Ever Used Any Other Forms Of Tobacco Or Nicotine? No Information not available 01/29/2024 Sex: Unknown Functional Status None recorded. Mental Status None recorded. Family History Nothing Reported. Medical History Condition Response Allergies/Hayfever N Coronary Artery Disease N Anxiety/Depression N Breathing or lung disorders N Emphysema N Nerve Disorders N Thyroid Problems N COPD N Pacemaker N Anemia N Kidney/Bladder Problems N Vascular Disease N Heart Trouble N Heart Attack ([place]) N Gastrointestinal Disease N Cholesterol N Diabetes N Autoimmune disease N Bleeding Disorder N Orthotics N Arthritis N Seizures/Epilepsy N Blood Clot N AIDS/HIV N Congestive Heart Failure (CHF) N Acid Reflux (GERD) N Cancer N Stroke N Asthma N Circulation Problems N Peripheral Vascular Disease N Sleep Apnea N Hepatitis N Heart Disease N Rheumatoid Arthritis N Arrhythmia N Pulmonary Embolism N Headaches N Fibromyalgia N Hypertension N Osteoporosis N Gynecological HistoryNo gynecological history recorded. Obstetrics History GPAL:G 0 P 0 0 0 0 Past Encounters Encounter ID Performer Location Encounter Start Date Encounter Closed Date Diagnosis/Indication Diagnosis SNOMED-CT Code Diagnosis ICD10 Code Diagnosis Note [id number] Tawny Cabral PA-C [facility] on [facility] [address] [place] [address] 08/16/2024 09:08:20 08/30/2024 10:46:53 Osteoarthritis of right knee joint [id number] 64926 M17.11 Nature of the diagnosis discussed with the patient today. They are having an acute exacerbati on of symptoms including pain, swelling and difficulty participat ing in ADL's. Both surgical and nonsurgica l options were reviewed. Conservati ve treatment options including activity modificati on, low impact exercise program such as swimming, stationary biking, swimming or rowing, physical therapy, NSAIDs, and injections were discussed. At this point patient elects to move forward with a repeat cortisone injection. Patient tolerated the procedure well. Post injection precaution s reviewed. They will continue with conservati ve modalities including icing and elevating. Follow-up with us as symptoms dictate for discussion of continued conservati ve management options versus total joint arthroplas ty. Trochanter ic bursitis of right hip [id number] 03939 M70.61 [id number] [facility] [address] [place] [address] 08/21/2024 11:36:25 08/21/2024 13:06:21 Trochanteric bursitis of right hip [id number] 95274 M70.61 [id number] Pat Gan, PT [facility] on [facility] [address] [place] [address] 08/26/2024 16:11:17 08/26/2024 17:18:30 Trochanteric bursitis of right hip 2381499934 84407 M70.61 Health Concerns Section Related Observation LastModified by Organization Detai ls LastModified Time None Recorded Concern Status LastModified by Organization Details LastModified Time None Recorded Payers Encounter Date Sequence Insurance Name Policy Number Policy Ruffin Covered Member ID Ruffin Member ID Guarantor Name 08/26/2024 1 MEDICARE B-ME: txtr SERVICES Yeimy Randall [id number] Yeimy Randall 08/26/2024 2 [employer] CLAIMS OFFICE Yeimy Tonia [id number] Yeimy Tonia Notes Date Note Type Note Provider Name and Address Organization Details Recorded Time 08/26/2024 text/html Patient reports that her right leg fatigues quickly with some of exercises. Pat Gan, PT [address], [place], [address], [facility] [place] [facility] 08/27/2024 06:44:58 OBGyn Episode No OBEpisode recorded.
--- OUTSIDE RECORDS SUMMARY | 2024-09-02 09:31 | XMS_ITS | Referral Summary ---
Author Organization [facility] Address [address] [place] [address] Care Team Providers Care Mail Handler Name Role Phone Renetta Olmstead Primary Care Provider [phone] Social History Tobacco Use Types Packs/Day Years Used Date Smoking Tobacco: Never Assessed Comments Unknown Sex and Gender Information Value Date Recorded Sex Assigned at Female 08/28/2023 12:01 PM EST Legal Sex Female 3:54 PM EDT Gender Identity Not on file Sexual Orientation Not on file Plan of Treatment Not on file Insurance [facility] Care Teams Mail Handler Relationship Specialty Start Date End Date Renetta Olmstead [address] [place] [address] PCP - General Internal Medicine 08/18/23
--- OUTSIDE RECORDS SUMMARY | 2024-09-02 09:31 | XMS_ITS | Clinical Summary ---
Author Organization [facility] Address [address] [place] [address] Care Team Providers Care Brick Tender Name Role Phone Renetta Olmstead Primary Care Provider [phone] Social History Tobacco Use Types Packs/Day Years Used Date Smoking Tobacco: Never Assessed Comments Unknown Sex and Gender Information Value Date Recorded Sex Assigned at Female 08/28/2023 12:01 PM EST Legal Sex Female 3:54 PM EDT Gender Identity Not on file Sexual Orientation Not on file Plan of Treatment Health Maintenance Due Date Last Done Comments Cervical Cancer Screening 1959 Cologuard 1959 Colon Cancer Screening 1959 Colonoscopy 1959 FOBT / Fit Test 1959 HIV Screening 1959 HPV and Pap Smear 1959 Pap Smear 1959 Sigmoidoscopy 1959 DTaP,Tdap,and Td Vaccines (1 - Tdap) 1981 Osteoporosis Screening 2009 Pneumococcal Vaccine: 50+ Years (2 of 2 - PCV) 06/15/2017 06/15/2016 COVID-19 Vaccine (2023- season) 2024 06/21/2021, 11/04/2020, 10/14/2020 Influenza Vaccine (#1) 2024 3, 05/02/2022, 05/04/2016 Alcohol/Substance Use Screening 07/17/2024 Health Care Proxy Review 07/17/2024 RSV Vaccine (60+ years old and patients) (1 - 1-dose 75+ series) 2034 Pneumococcal Vaccine: Pediatric (0-5 Years) and At-Risk Patients (6-50 Years) Aged Out 06/15/2016 No longer eligible based on patient's age to complete this topic Zoster Vaccines Completed 09/25/2018, 07/14/2018 Mammogram Discontinued 03/02/2022, 02/14, 02/28/2020, Additional history exists Hepatitis B Vaccines Aged Out No long er eligible based on patient's age to complete this topic Insurance [facility] Care Teams Brick Tender Relationship Specialty Start Date End Date IshanRenetta [address] [place], [place] [id number] PCP - General Internal Medicine 08/18/23
--- OUTSIDE RECORDS SUMMARY | 2024-09-02 09:31 | XMS_ITS | Clinical Summary ---
Author Organization [facility] Address [address] [place] [address] Care Team Providers Care Ocean Export Coordinator Name Role Phone Renetta Olmstead PA-C Primary Care Provider [phone] Allergies Active Allergy Reactions Criticality Noted Date Comments Animal Dander Low 10/24/2023 Pollen Extract Low 10/24/2023 Medications Medication Sig Dispensed Refills Start Date End Date Status lisinopril (PRINIVIL,ZESTRIL) tablet 5 mg Take 1 tablet (5 mg total) by mouth daily. 0 Active venlafaxine (EFFEXOR) 37.5 MG tablet Take 1 tablet (37.5 mg total) by mouth daily. 0 Active loratadine (CLARITIN) 10 MG tablet Take 1 tablet (10 mg total) by mouth daily. 0 Active amoxicillin-clavulana te (AUGMENTIN) 875-125 MG per tablet Take 1 tablet by mouth 2 (two) times a day. 0 Active Diclofenac Sodium (QC Diclofenac Sodium) 1 % GEL Apply topically as needed. 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 Social History Tobacco Use Types Packs/Day Years Used Date Smoking Tobacco: Former Cigarettes Smokeless Tobacco: Never Tobacco Cessation:Counseling Given: Not Answered Alcohol Use Standard Drinks/Week Comments Yes 0 (1 standard drink = 0.6 oz pur e alcohol) Twice a week Sex and Gender Information Value Date Recorded Sex Assigned at Female 06/01/2023 12:30 PM EST Gender Identity Not on file Sexual Orientation Not on file Job Start Date Occupation Industry Not on file Not on file Not on file Last Filed Vital Signs Vital Sign Reading Time Taken Comments Blood Pressure 140/80 10/24/2023 11:35 AM EDT Pulse 64 10/24/2023 11:35 AM EDT Temperature 36.7 ??C (98 ??F) 10/24/2023 11:35 AM EDT Respiratory Rate 18 10/24/2023 11:35 AM EDT Oxygen Saturation 100% 10/24/2023 9:00 AM EDT Inhaled Oxygen Concentration - - Weight 69.1 kg (152 lb 6.4 oz) 10/24/2023 9:00 AM EDT Height 168.9 cm (5' 6.5 ) 10/18/2023 11:47 AM ED T Body Mass Index 24.23 10/18/2023 11:47 AM EDT Plan of Treatment Health Maintenance Due Date Last Done Comments Hepatitis C Screening 1959 Depression Screening 1971 Preventative Health Evaluation 1977 DTap / Tdap / Td (1 - Tdap) 1978 Cervical Cancer Screening (Pap Smear) 1980 Colon Cancer Screening (Colonoscopy) 2004 Breast Cancer Screening (Mammogram) 2009 COVID-19 Vaccine ( season) 2024 06/21/2021, 11/04/2020, 10/14/2020 Influenza Vaccine (#1) 2024 , 05/06/2023, 05/02/2022, Additional history exists Fall Risk Assessment 2024 Osteoporosis Screening (DEXA Scan) 2024 Pneumococcal Vaccine (2 of 2 - PCV) 2024 06/15/2016 RSV Adult > 60+ Yrs or (1 - 1-dose 75+ series) 2034 Pneumococcal Vaccine Aged Out 06/15/2016 No long er eligible based on patient's age to complete this topic Shingrix-Zoster Vaccine Completed 09/25/2018, 07/14 Hepatitis B Vaccines Aged Out No long er eligible based on patient's age to complete this topic RSV Ped < 20 months Aged Out No longe r eligible based on patient's age to complete this topic Insurance Payer Benefit Plan / Group Subscriber ID Effective Dates Phone Address [employer] [id number] 2022-Monisha tucker [address] [facility] [address] [place] [address] O Care Teams Ocean Export Coordinator Relationship Specialty Start Date End Date Renetta Olmstead, GRAEME PCP - General Physician Skinning Machine Feeder 06/01/23
--- OUTSIDE RECORDS SUMMARY | 2024-09-02 09:31 | XMS_ITS | Continuity of Care Document ---
Author Organization [facility] Address [address] [place] [address] Jeny mendoza, [address] [place] [address]- Care Team Providers Care Breaking Machine Operator Name Role Phone Renetta Bagley Primary Care Physician Encounter [facility] ACCT R [id number] Date(s): 05/14/24 - 08/14/[address] [place], [place] [address] Attending Physician: Delbert Ceron MD Referring Physician: Renetta Bagley Encounter Type: Pre Office Visit Allergies, Adverse Reactions, Alerts Substance Criticality Severity [...] 7:31:00 PM EST, Route to Pharmacy Electronically, [id number], 168, cm, 06/27/23 12:56:00 EST, Height, 69, kg, 03/13/23 16:30:00 EDT, Dry Weight Start Date: 06/27/23 Status: Ordered Quantity: 90.0 Unit: tablet Repeat number: 1 loratadine 10 mg oral tablet 10 mg, 1, tablet, By Mouth, Daily, # 90 tablet, Refills 3, Tot. Refills 3, Maintenance, 08/01/23 1:23:00 PM EST, Route to Pharmacy Electronically, [facility]/pharmacy #[id number], Partial fill upon patient requestif [...] 0 Refills, Maintenance, 04/02/24 2:23:00 PM EDT, [facility]/pharmacy #[id number], Partial fill upon patient request [...] Maintenance, 11/07/23 1:04:00 PM EDT, [id number], 166.3, cm, 10/31/23 13:27:00 EDT, Height, 69.6, [...] Position: Reference Physician Member Role: PCP Address: [address] [place] [address] Telecom: Care Team Related Persons Name: ALFIE HINOJOSA Insurance Providers Guarantor name: DEBBI HINOJOSA Health Plan Information #: 1 [facility] Member Number: [id number] Policy Number: NA Group Number: [id number] Health Plan Information #: 2 [facility] Member Number: [id number] Policy Number: NA Group Number: [id number]
[2024-09-02 11:16] LABS: Alanine Aminotransferase 26 U/L (0-31); Albumin Level 4.1 g/dL (3.5-5.0); Alkaline Phosphatase 75 U/L (39-117); Aspartate Amino Transferase 20 U/L (5-31); Bilirubin Direct 0.1 mg/dL (0.0-0.5); Bilirubin Total 0.5 mg/dL (0.0-1.0); Total Protein 6.9 g/dL (6.5-8.0)
== END 2024-09-02 09:30 | disposition home or self-care (01) ==
LOC: HO.WFDLDS 09:29
PROVIDERS: Visit Provider Physician Assistant
DX: R79.89 Other specified abnormal findings of blood chemistry (principal)
CPT/HCPCS: 36415; 80076

== ENCOUNTER 2024-09-04 10:15 | Outpatient (AMB) | payer MEDICARE, OTHER, SELFPAY ==
--- NOTE | 2024-09-04 10:31 | MHC.PC.OV ---
Vital Signs 09/04/24 10:35 Height 5 ft 5.43 in Weight 165 lb 6 oz BMI 27.2 BP 110/78 Blood Pressure Location Lt brachial Position Sitting Respiration 14 Pulse 61 Pulse Source Pulse Oximeter Pulse Oximetry (%) 99 Oxygen Delivery Method Room Air Intake Visit Reasons: 30 min appoint labs, imaging Intake Note: Follow up chest xray and labs. Counter Top Maker Required: No Allergies cat dander Allergy (Unknown, Verified 09/04/24 10:34) Unknown grass Allergy (Unknown, Uncoded 09/04/24 10:34) Unknown Tobacco use date assessed: 09/04/24 Fall risk assessment: No Falls in past year Last assessed Fall Risk: 09/04/24 Dental Screening Dental Screen Date: 02/07/24 HPI 30 min appoint labs, imaging HPI Details Patient is a 64-year-old female who presents today for a follow up. She has a significant past medical history of hypertension, impaired fasting glucose, hyperlipidemia, Raynaud's, psoriasis, congenital dysfibrinogenemia, ulcerative colitis and history of endometrial cancer. -she states since our last visit she has been dealing with shortness a breath with exertion, intermittent chest pains, lower leg swelling and sometimes discomfort, increased back pain and arthralgias. 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 Given the history of mild bruising and no history of congenital bleeding disorder the recommendation was that she likely does not need prophylactic intervention for elective procedures but for procedures that do carry a significant risk of life-threatening bleeding it would be prudent to have FFP on standby. CV: Blood pressure today in the office is 110/78. She states that they have been normal at home and she is on lisinopril 5 mg. She has been working hard on her diet. Her last lipids in March were WNL. She recently went for a preop for clearance for back surgery (by Dr. Ceron) and complained of dutton. She had a nuclear stress test and echo and states that it was normal. Holter monitor is booked for Monday. She did have a chest x-ray at our last visit which was negative. Pulmonary function testing was ordered. She was referred to Cardiology. -maternal grandfather had SC and father had SC at age 58 and from this. -she is a former smoker x 8 years, 1 ppd. Vasc: Over the last few months or so she has also noticed an increase in varicosities of the bilateral lower legs. Negative ultrasound for DVT. Wants to hold off on vascular referral. Musculoskeletal: She follows with [facility] for injections of right knee and hip prn. She does have a history of psoriasis. Follows with [facility] for low back pain x years. Going for lumbar spine spine fusion in October 2024. She does get pain radiating down the legs. Psych: On venlafaxine for postmenopausal hot flashes. Doing well with this. Derm: Follows with dermatology for full skin check. Colonoscopy: Up-to-date, follows with [facility]. Her last colonoscopy was 2019 and she has not had a flare-up of her ulcerative colitis in over 3 years. 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 Mammo: Up-to-date, 2023 and scheduled in February at [facility] of this year Bone density: UTD- normal. [facility] Medical History (Updated 08/01/24 @ 11:11 by Renetta Olmstead PA-C) Congenital dysfibrinogenemia Urinary incontinence Ulcerative colitis Sacral radiculitis Raynauds syndrome Psoriasis Menopausal flushing Lumbar pain with radiation down right leg Impaired fasting glucose Hyperlipidemia HTN (hypertension) Hot flashes Fatty liver Endometrial cancer Surgical History History of hysterectomy History of dilatation and curettage H/O vein stripping Hx of cholecystectomy Family History Mother Aneurysm HTN (hypertension) Father HTN (hypertension) Heart attack Maternal Grandmother Cancer of stomach Paternal Grandmother Cancer of breast Other Cancer of lung Cancer of skin FH: throat cancer Social History (Updated 09/04/24 @ 10:38 by Kristin Escobar CMA) Housing: House Alcohol intake: current Patient Tobacco Use Status: Former Tobacco user Cigarette Packs Per Day: 1 Years Smoked: 8 e-Cigarette/Vaping Use: Never Used service: No Current occupational status: employed 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 Current occupational exposures/hazards: No Cognitive needs: No Hearing needs: No Vision needs: No Questionnaire Thrive Questionnaire Date Thrive assessed: 07/25/24 I am a: Patient What is your living situation today?: I have a steady place to live Within the past 12 months, did the food you bought not last and you didn't have the money to get more?: Never true Within the past 12 months, did you worry whether your food would run out before you got money to buy more?: Never true Do you have trouble paying for medicines?: No Do you have trouble getting transportation to medical appointments?: No Do you have trouble paying your heating and electricity bill?: No Do you have trouble taking care of your child, family member or friend?: No Do you have trouble with day-to-day activities such as bathing, preparing meals, shopping, managing finances, etc.?: No Are you currently unemployed and looking for a job?: No Are you interested in more education?: No Please select the resources that you would like help with: None Currently or been in a relationship where the following occur: No concerns reported THRIVE Score: 0 SOPHIE-7 AMB Questionnaire SOPHIE-7 Date SOPHIE - 7 assessed: 08/01/24 Source: Developed by Drs. Tunde Julio, Sheila Walker, Sony Tilley and colleagues, with an educational robert from [employer]. Physical exam (Primary Care) Vital Signs: Last Vital Signs Pulse 61 09/04/24 10:35 Resp 14 09/04/24 10:35 BP 110/78 09/04/24 10:35 Pulse Ox 99 09/04/24 10:35 Oxygen Delivery Method Room Air 09/04/24 10:35 BMI result Body Mass Index 27.2 Tobacco/Smoking Status: Tobacco use Status Tobacco use date assessed 09/04/24 09/04/24 10:39 Patient Tobacco Use Status Former Tobacco user 09/04/24 10:38 e-Cigarette/Vaping Use Never Used 09/04/24 10:38 Thrive Assessment: Date of Thrive Assessment Date Thrive assessed 07/25/24 09/04/24 10:32 Currently or been in a relationship where the following occur: No concerns reported Results Reviewed Results Reviewed: Laboratory Tests 02/07/24 08/01/24 09/02/24 10:08 09:08 09:29 WBC 8.3 RBC 4.42 Hgb 13.0 Hct 40.0 Plt Count 318 ESR 7 Sodium 140 Potassium 4.2 Chloride 106 Carbon Dioxide 30 H Anion Gap 8 L BUN 16 Creatinine 0.61 Estimated GFR > 60 Random Glucose 97 Hemoglobin A1c % 5.9 Calcium 8.8 D Total Bilirubin 0.5 Direct Bilirubin 0.1 AST 28 20 ALT 34 H 26 Alkaline Phosphatase 73 75 C-React Prot High Sens 2.5 Total Protein 6.9 Albumin 4.1 1,25 Dihydroxy Vit D 57 TSH 1.03 Coding Level of Care Code Est Pt Level 4 (66558) Complex EM visit Add On G2211 Diagnoses Hyperlipidemia E78.5 Primary hypertension I10 Hypertension type: primary hypertension DUTTON (dyspnea on exertion) R06.09 Assessment & Plan Assessment & Plan (1) Hyperlipidemia: Code(s): E78.5 - Hyperlipidemia, unspecified Category: Medical Plan: We will monitor (2) HTN (hypertension): Code(s): I10 - Essential (primary) hypertension Category: Medical Qualifiers: Hypertension type: primary hypertension Qualified Code(s): I10 - Essential (primary) hypertension Plan: WNL. Continue current regimen (3) DUTTON (dyspnea on exertion): Code(s): R06.09 - Other forms of dyspnea Category: Medical Plan: Holter and PFTs scheduled for Monday. We will follow up pending test results. Has a follow up arranged with Cardiology in March.
[2024-09-04 10:35] VITALS: BP 110/78; PULSE 61; RESP 14; O2SAT 99; BMI 27.2
--- OUTSIDE RECORDS SUMMARY | 2024-09-04 10:51 | XMS_ITS | Clinical Summary ---
Author Organization [facility] Address [address] [place] [address] Care Team Providers Care Customer Service Cashier Name Role Phone Renetta Olmstead Primary Care Provider [phone] Social History Tobacco Use Types Packs/Day Years [...] [facility] Care Teams Customer Service Cashier Relationship Specialty Start Date End Date IshanRenetta [address] [place], [place] [id number] PCP - General Internal Medicine 08/18/23
--- OUTSIDE RECORDS SUMMARY | 2024-09-04 10:51 | XMS_ITS | Referral Summary ---
Author Organization [facility] Address [address] [place] [address] Care Team Providers Care Monotype Caster Name Role Phone Renetta Olmstead Primary Care Provider [phone] Social History Tobacco Use Types Packs/Day Years Used Date Smoking Tobacco: Never Assessed Comments Unknown Sex and Gender Information Value Date Recorded Sex Assigned at Female 08/28/2023 12:01 PM EST Legal Sex Female 3:54 PM EDT Gender Identity Not on file Sexual Orientation Not on file Plan of Treatment Not on file Insurance [facility] Care Teams Monotype Caster Relationship Specialty Start Date End Date Renetta Olmstead [address] [place] [address] PCP - General Internal Medicine 08/18/23
--- OUTSIDE RECORDS SUMMARY | 2024-09-04 10:51 | XMS_ITS | Clinical Summary ---
Author Organization [facility] Address [address] [place] [address] Care Team Providers Care Emblem Drawer In Name Role Phone Renetta Olmstead PA-C Primary Care Provider [phone] Allergies Active Allergy Reactions Criticality Noted Date [...] Group Subscriber ID Effective Dates Phone Address [facility] [id number] 2022-Monisha tucker [address] [facility] [address] [place] [address] O Care Teams Emblem Drawer In Relationship Specialty Start Date End Date Renetta Olmstead, GRAEME PCP - General Physician Brake Lining Maker 06/01/23
== END 2024-09-04 11:01 | disposition home or self-care (01) ==
PROVIDERS: PCP Physician Assistant; Visit Provider Physician Assistant
DX: E78.5 Hyperlipidemia, unspecified (principal); I10 Essential (primary) hypertension; R06.09 Other forms of dyspnea

== ENCOUNTER → 2024-09-04 10:15 | Outpatient (BNVA) | payer MEDICARE, OTHER, SELFPAY | PROVIDERS: PCP Physician Assistant; Visit Provider Physician Assistant | DX: E78.5 Hyperlipidemia, unspecified (principal); I10 Essential (primary) hypertension; R06.09 Other forms of dyspnea | CPT/HCPCS: 99212 ==

== ENCOUNTER 2024-09-06 07:43 | Outpatient (REF) | payer MEDICARE, OTHER, SELFPAY ==
--- OUTSIDE RECORDS SUMMARY | 2024-09-06 07:45 | XMS_ITS | Referral Summary ---
Author Organization [facility] Address [address] [place] [address] Care Team Providers Care Cloth Neutralizer Name Role Phone Renetta Olmstead Primary Care Provider [phone] Social History Tobacco Use Types Packs/Day Years Used Date Smoking Tobacco: Never Assessed Comments Unknown Sex and Gender Information Value Date Recorded Sex Assigned at Female 08/28/2023 12:01 PM EST Legal Sex Female 3:54 PM EDT Gender Identity Not on file Sexual Orientation Not on file Plan of Treatment Not on file Insurance [facility] Care Teams Cloth Neutralizer Relationship Specialty Start Date End Date Renetta Olmstead [address] [place] [address] PCP - General Internal Medicine 08/18/23
--- OUTSIDE RECORDS SUMMARY | 2024-09-06 07:45 | XMS_ITS | Clinical Summary ---
Author Organization [facility] Address [address] [place] [address] Care Team Providers Care Airline Pilot Name Role Phone Renetta Olmstead Primary Care Provider [phone] Social History Tobacco Use Types Packs/Day Years [...] patient's age to complete this topic Insurance [facility] Care Teams Airline Pilot Relationship Specialty Start Date End Date IshanRenetta [address] [place], [place] [id number] PCP - General Internal Medicine 08/18/23
--- OUTSIDE RECORDS SUMMARY | 2024-09-06 07:45 | XMS_ITS | Clinical Summary ---
Author Organization [facility] Address [address] [place] [address] Care Team Providers Care Castables Worker Name Role Phone Renetta Olmstead PA-C Primary Care Provider [phone] Allergies Active Allergy Reactions Criticality Noted Date [...] Group Subscriber ID Effective Dates Phone Address [facility] [id number] 2022-Monisha tucker [address] [facility] [address] [place] [address] O Care Teams Castables Worker Relationship Specialty Start Date End Date Renetta Olmstead, GRAEME PCP - General Physician Biological Plant Operator 06/01/23
--- NOTE | 2024-09-06 07:46 | PFT_ITS ---
Flows: FEV1: 104 % of predicted at 2.64 L FVC: 110 % of predicted at 3.60 L FEV1/FVC: 73 % Bronchodilator response: Present in small to medium airways only Volumes: Total lung capacity: 95 % of predicted at 5.24 L Residual volume: 82 % of predicted at 1.64 L Slow vital capacity: 103 % of predicted at 3.60 L Expiratory reserve volume: 62 % of predicted at 0.54 L Diffusion capacity: Normal Impression: No obstructive or restrictive ventilatory defect. Bronchodilator response is present in small to medium airways only. MTDD
--- NOTE | 2024-09-06 08:23 | HM_ITS ---
* Total monitoring time one day. * Underlying rhythm is sinus with an average rate of 73/Min. * Rare supraventricular ectopy. * One isolated ventricular ectopic beat. * No sustained arrhythmias. * No significant pauses or high-grade AV blocks. * No patient markers or diary events. MTDD
== END 2024-09-06 07:44 | disposition home or self-care (01) ==
LOC: HO.RESP 07:43
PROVIDERS: PCP Physician Assistant; Visit Provider Physician Assistant
DX: R00.2 Palpitations (principal); Z87.891 Personal history of nicotine dependence; R07.89 Other chest pain; R06.09 Other forms of dyspnea
CPT/HCPCS: 93225; 94010; 94640; 94727; 94729

== ENCOUNTER → 2024-09-06 07:46 | Outpatient (BNV) | payer MEDICARE, OTHER, SELFPAY | PROVIDERS: PCP Physician Assistant; Visit Provider Internal Medicine Pulmonary Disease | DX: R06.09 Other forms of dyspnea (principal); Z87.891 Personal history of nicotine dependence | CPT/HCPCS: 94060; 94727; 94729 ==

== ENCOUNTER → 2024-09-06 08:23 | Outpatient (BNV) | payer MEDICARE, OTHER, SELFPAY | PROVIDERS: PCP Physician Assistant; Visit Provider Internal Medicine | DX: I49.3 Ventricular premature depolarization (principal) | CPT/HCPCS: 93227 ==

== ENCOUNTER 2025-03-05 08:29 | Outpatient (AMB) | payer MEDICARE, OTHER, SELFPAY ==
--- NOTE | 2025-03-05 08:37 | A.OFFPC_ITS ---
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 Required: No Allergies cat dander Allergy (Unknown, Verified 03/05/25 08:38) Unknown grass Allergy (Unknown, Uncoded 03/05/25 08:38) Unknown Medication List - Last Reconciled 03/05/25 by Renetta Olmstead PA-C lisinopril 5 mg PO DAILY magnesium oxide 400 mg PO DAILY multivitamin 1 tab PO DAILY Tobacco use date assessed: 03/05/25 Fall risk assessment: No Falls in past year Last assessed Fall Risk: 03/05/25 Dental Screening Dental Screen Date: 03/05/25 Did you have a dental visit in the last 12 months?: Yes Did you have a dental problem in the last 6 months where you did not have access to dental care?: No Was dental information given to patient?: Patient has dentist HPI follow up heart/blood pressure HPI Details Patient is a 64-year-old female who presents today for a follow up. She has a significant past medical history of hypertension, impaired fasting glucose, hyperlipidemia, Raynaud's, psoriasis, congenital dysfibrinogenemia, ulcerative colitis and history of endometrial cancer. -she states since our last visit she has been dealing with shortness a breath with exertion, intermittent chest pains, lower leg swelling and sometimes discomfort, increased back pain and arthralgias. 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 Given the history of mild bruising and no history of congenital bleeding disorder the recommendation was that she likely does not need prophylactic intervention for elective procedures but for procedures that do carry a significant risk of life-threatening bleeding it would be prudent to have FFP on standby. Also recommended that she avoids NSAIDs. CV: Blood pressure today in the office is 108/74. She states that they have been normal at home and she is on lisinopril 5 mg. She has been working hard on her diet. Her last lipids in March were WNL. Vasc: Over the last few months or so she has also noticed an increase in varicosities of the bilateral lower legs. Negative ultrasound for DVT. Wants to hold off on vascular referral. Musculoskeletal: She follows with [facility] for injections of right knee and recently tore her left meniscus. She had an MRI which confirmed with this. She has been doing PT and injections but still gets pain. She says that she has a make a decision on whether or not she wants to do surgery. Follows with [facility] for low back pain x years. S/p lumbar spine spine fusion in October 2024. Psych: On venlafaxine for postmenopausal hot flashes but does not feel effective fully. She does also struggle with falling asleep and staying asleep. The higher doses of the venlafaxine make her feel drugged. Derm: Follows with dermatology for full skin check. Recently diagnosed with melanoma. Going later today to have the stitches removed. Colonoscopy: Up-to-date, follows with [facility]. Her last colonoscopy was 2019 and she has not had a flare-up of her ulcerative colitis in over 3 years. She is not on any medication. 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 Mammo: Up-to-date, 2023 and scheduled in February at [facility] of this year Bone density: UTD- normal. [facility] Medical History (Updated 03/05/25 @ 09:18 by Renetta Olmstead PA-C) Congenital dysfibrinogenemia Urinary incontinence Ulcerative colitis Sacral radiculitis Raynauds syndrome Psoriasis Menopausal flushing Lumbar pain with radiation down right leg Impaired fasting glucose Hyperlipidemia HTN (hypertension) Hot flashes Fatty liver Endometrial cancer Surgical History (Updated 03/05/25 @ 08:45 by Kristin Escobar CMA) History of back surgery History of hysterectomy History of dilatation and curettage H/O vein stripping Hx of cholecystectomy Family History Mother Aneurysm HTN (hypertension) Father HTN (hypertension) Heart attack Maternal Grandmother Cancer of stomach Paternal Grandmother Cancer of breast Other Cancer of lung Cancer of skin FH: throat cancer Social History (Updated 03/05/25 @ 08:45 by Kristin Escobar CMA) Housing: House Alcohol intake: current Patient Tobacco Use Status: Former Tobacco user Cigarette Packs Per Day: 1 Years Smoked: 8 e-Cigarette/Vaping Use: Never Used service: No Current occupational status: employed 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 Current occupational exposures/hazards: No Cognitive needs: No Hearing needs: No Vision needs: No Questionnaire Thrive Questionnaire Date Thrive assessed: 07/25/24 I am a: Patient What is your living situation today?: I have a steady place to live Within the past 12 months, did the food you bought not last and you didn't have the money to get more?: Never true Within the past 12 months, did you worry whether your food would run out before you got money to buy more?: Never true Do you have trouble paying for medicines?: No Do you have trouble getting transportation to medical appointments?: No Do you have trouble paying your heating and electricity bill?: No Do you have trouble taking care of your child, family member or friend?: No Do you have trouble with day-to-day activities such as bathing, preparing meals, shopping, managing finances, etc.?: No Are you currently unemployed and looking for a job?: No Are you interested in more education?: No Please select the resources that you would like help with: None Currently or been in a relationship where the following occur: No concerns reported THRIVE Score: 0 AUDIT C Alcohol Use Questionnaire (AUDIT-C) 1. How often do you have a drink containing alcohol?: 2-3 times a week 2. How many drinks containing alcohol do you have on a typical day when you are drinking?: 1 or 2 3. How often do you have six or more drinks on one occasion?: Never Total Score: 3 SOPHIE-7 AMB Questionnaire SOPHIE-7 Date SOPHIE - 7 assessed: 08/01/24 Source: Developed by Drs. Tunde Julio, Sheila Walker, Sony Tilley and colleagues, with an educational robert from [employer]. Physical exam (Primary Care) Vital Signs: Last Vital Signs Temp 97.9 F 03/05/25 08:42 Pulse 65 03/05/25 08:42 Resp 14 03/05/25 08:42 BP 108/74 03/05/25 08:42 Pulse Ox 99 03/05/25 08:42 Oxygen Delivery Method Room Air 03/05/25 08:42 BMI result Body Mass Index 27.1 Tobacco/Smoking Status: Tobacco use Status Tobacco use date assessed 03/05/25 03/05/25 08:40 Patient Tobacco Use Status Former Tobacco user 03/05/25 08:45 e-Cigarette/Vaping Use Never Used 03/05/25 08:45 Thrive Assessment: Date of Thrive Assessment Date Thrive assessed 07/25/24 03/05/25 08:40 Currently or been in a relationship where the following occur: No concerns reported Const Orientation/consciousness: patient oriented x3 HENMT Ears: hearing grossly normal bilaterally Neck Thyroid: Thyroid normal Lymphatic: no lymphadenopathy noted Resp Auscultation: clear to auscultation bilaterally Cardio Rate: regular rate Rhythm: regular rhythm Heart sounds: S1 normal heart sound present and S2 normal heart sound present GI Inspection: Yes normal to inspection Palpation (GI): Soft to palpation and Other GI palpation findings present (nontender, no cva tenderness) Auscultation: normoactive bowel sounds Rectal Exam - Female: deferred Skin General skin exam: no rashes or lesions noted Neuro General: patient oriented x3, gait normal and no focal motor deficits Results Reviewed Results Reviewed: Laboratory Tests 08/01/24 09/02/24 09:08 09:29 WBC 8.3 RBC 4.42 Hgb 13.0 Hct 40.0 Plt Count 318 Sodium 140 Potassium 4.2 Chloride 106 Carbon Dioxide 30 H Anion Gap 8 L BUN 16 Creatinine 0.61 Estimated GFR > 60 Random Glucose 97 Estimat Average Glucose 123 Hemoglobin A1c % 5.9 Calcium 8.8 D Total Bilirubin 0.5 Direct Bilirubin 0.1 AST 20 ALT 26 Alkaline Phosphatase 75 Total Protein 6.9 Albumin 4.1 Coding Level of Care Code Est Pt Level 4 (23491) Complex EM visit Add On G2211 Diagnoses Fatty liver K76.0 Primary hypertension I10 Hypertension type: primary hypertension Hyperlipidemia E78.5 Prediabetes R73.03 Fatigue R53.83 Bilateral knee pain M25.561; M25.562 Assessment & Plan Assessment & Plan (1) Fatty liver: Code(s): K76.0 - Fatty (change of) liver, not elsewhere classified Category: Medical Plan: Liver ultrasound ordered (2) HTN (hypertension): Code(s): I10 - Essential (primary) hypertension Category: Medical Qualifiers: Hypertension type: primary hypertension Qualified Code(s): I10 - Essential (primary) hypertension Plan: WNL. Continue current regimen (3) Hyperlipidemia: Code(s): E78.5 - Hyperlipidemia, unspecified Category: Medical Plan: Working on diet. (4) Prediabetes: Code(s): R73.03 - Prediabetes Category: Medical Plan: We will monitor A1c and blood sugar. Advised patient to watch her carbohydrate intake and exercise as tolerated (5) Fatigue: Code(s): R53.83 - Other fatigue Category: Medical Plan: Does endorse generalized fatigue but has had some stressors with the endometrial cancer and recent diagnosis of the melanoma. Labs ordered. Does not sleep well at night so we will try trazodone. She will discontinue the venlafaxine. short term follow up- will let me know if not effective (6) Bilateral knee pain: Code(s): M25.561 - Pain in right knee; M25.562 - Pain in left knee Category: Medical Plan: We will try lidocaine patches. Prescription for tramadol to use if needed. She has travel coming up and plans to be active. Orders: Orders Complete Blood Count Auto Diff Today E78.5 - Hyperlipidemia, unspecified, I10 - Essential (primary) hypertension, K76.0 - Fatty (change of) liver, not elsewhere classified, R53.83 - Other fatigue, R73.03 - Prediabetes Ferritin Today E78.5 - Hyperlipidemia, unspecified, I10 - Essential (primary) hypertension, K76.0 - Fatty (change of) liver, not elsewhere classified, R53.83 - Other fatigue, R73.03 - Prediabetes IRON PROFILE Today E78.5 - Hyperlipidemia, unspecified, I10 - Essential (primary) hypertension, K76.0 - Fatty (change of) liver, not elsewhere classified, R53.83 - Other fatigue, R73.03 - Prediabetes TSH reflex Free T4 Today E78.5 - Hyperlipidemia, unspecified, I10 - Essential (primary) hypertension, K76.0 - Fatty (change of) liver, not elsewhere classified, R53.83 - Other fatigue, R73.03 - Prediabetes Magnesium Today E78.5 - Hyperlipidemia, unspecified, I10 - Essential (primary) hypertension, K76.0 - Fatty (change of) liver, not elsewhere classified, R53.83 - Other fatigue, R73.03 - Prediabetes Lyme IgG/IgM w/reflex to WB Today E78.5 - Hyperlipidemia, unspecified, I10 - Essential (primary) hypertension, K76.0 - Fatty (change of) liver, not elsewhere classified, R53.83 - Other fatigue, R73.03 - Prediabetes US abdomen comp w elastography Today E78.5 - Hyperlipidemia, unspecified, I10 - Essential (primary) hypertension, K76.0 - Fatty (change of) liver, not elsewhere classified, R53.83 - Other fatigue, R73.03 - Prediabetes Basic Metabolic Panel Today E78.5 - Hyperlipidemia, unspecified, I10 - Essential (primary) hypertension, K76.0 - Fatty (change of) liver, not elsewhere classified, R53.83 - Other fatigue, R73.03 - Prediabetes Liver Panel Today E78.5 - Hyperlipidemia, unspecified, I10 - Essential (primary) hypertension, K76.0 - Fatty (change of) liver, not elsewhere classified, R53.83 - Other fatigue, R73.03 - Prediabetes UA CC w/rflx Micro + Cult Today E78.5 - Hyperlipidemia, unspecified, I10 - Essential (primary) hypertension, K76.0 - Fatty (change of) liver, not elsewhere classified, R53.83 - Other fatigue, R73.03 - Prediabetes, Z13.220 - Encounter for screening for lipoid disorders Microalbumin, Random (w Creat) Today E78.5 - Hyperlipidemia, unspecified, I10 - Essential (primary) hypertension, K76.0 - Fatty (change of) liver, not elsewhere classified, R53.83 - Other fatigue, R73.03 - Prediabetes Vitamin B12 and Folate Today E78.5 - Hyperlipidemia, unspecified, I10 - Essential (primary) hypertension, K76.0 - Fatty (change of) liver, not elsewhere classified, R53.83 - Other fatigue, R73.03 - Prediabetes Hemoglobin A1c Today E78.5 - Hyperlipidemia, unspecified, I10 - Essential (primary) hypertension, K76.0 - Fatty (change of) liver, not elsewhere classified, R53.83 - Other fatigue, R73.01 - Impaired fasting glucose, R73.03 - Prediabetes Erythrocyte Sedimentation Rate Today E78.5 - Hyperlipidemia, unspecified, I10 - Essential (primary) hypertension, K76.0 - Fatty (change of) liver, not elsewhere classified, R53.83 - Other fatigue, R73.03 - Prediabetes Referrals Gastroenterology Referral K51.90 - Ulcerative colitis, unspecified, without complications, K76.0 - Fatty (change of) liver, not elsewhere classified, Z12.11 - Encounter for screening for malignant neoplasm of colon Medications: New trazodone take 1/2 tab po for the first few nights, then increase if needed to 1 tab po night 50 mg PO BEDTIME PRN 90 tabs 0RF sleep lidocaine 5% leave on most painful area for up to 12 hrs 3 patches topical DAILY 30 ea 1RF tramadol 50 mg PO DAILY 30 tabs 0RF 30 days Patient Instructions: start trazodone stop effexor-venlafaxine get labs and urine referral to gi for colonoscopy discussion and fatty liver liver/abdominal ultrasound was ordered-they will call you to book will try tramadol as needed for pain try lidocaine patches first
[2025-03-05 08:42] VITALS: BP 108/74; PULSE 65; RESP 14; TEMP 36.6; O2SAT 99; BMI 27.1
--- OUTSIDE RECORDS SUMMARY | 2025-03-05 09:11 | XMS_ITS | Clinical Summary ---
Author Organization [facility] Address [address] [place] [address] Care Team Providers Care Lining Caser Name Role Phone Renetta Olmstead Primary Care Provider Social History Tobacco Use Types Packs/Day Years [...] 2 - PCV) 06/15/2017 06/15/2016 COVID-19 Vaccine ( season) 2024 06/21/2021, 11/04/2020, 10/14/2020 Alcohol/Substance Use Screening 07/17/2024 Health Care Proxy Review 07/17/2024 Influenza Vaccine (#1) 2025 , 05/02/2022, 05/04/2016 RSV Vaccine (60+ years old and patients) (1 - 1-dose 75+ series) 2034 Zoster Vaccines Completed 09/25/2018, 07/14/2018 Mammogram Discontinued 03/02/2022, 02/14, 02/28/2020, Additional history exists Hepatitis B Vaccines Aged Out No long er eligible based on patient's age to complete this topic Insurance [facility] Care Teams Lining Caser Relationship Specialty Start Date End Date Renetta Olmstead [address] [place] [address] PCP - General Internal Medicine 08/18/23
--- OUTSIDE RECORDS SUMMARY | 2025-03-05 09:11 | XMS_ITS | Clinical Summary ---
Author Organization [facility] Address [address] [place] [address] Care Team Providers Care Wrapper And Preserver Name Role Phone Renetta Olmstead PA-C Primary Care Provider [phone] Allergies Active Allergy Reactions Criticality Noted Date [...] 64 10/24/2023 11:35 AM EDT Temperature 36.7 C (98 F) 10/24/2023 11:35 AM EDT Respiratory Rate 18 [...] Vaccine ( season) 2024 06/21/2021, 11/04/2020, 10/14/2020 Fall Risk Assessment 2024 Osteoporosis Screening (DEXA Scan) 2024 Pneumococcal Vaccine (2 of 2 - PCV) 2024 06/15/2016 Influenza Vaccine (#1) 2025 , 05/06/2023, 05/02/2022, Additional history exists RSV Adult > 60+ Yrs or (1 [...] Group Subscriber ID Effective Dates Phone Address [facility] [id number] 2022-Monisha tucker [address] [place] [address] O Care Teams Wrapper And Preserver Relationship Specialty Start Date End Date Renetta Olmstead, JOSE ANTONIOC PCP - General Physician E Commerce Marketing Manager 06/01/23
--- OUTSIDE RECORDS SUMMARY | 2025-03-05 09:11 | XMS_ITS | Encounter Summary ---
Author Organization [facility] Address [address] [place] [id number] Phone Care Team Providers Care Wiener Packer Name Role Phone Lydia Johnson Primary Care Provider [phone] Marlene Gonzalez MD Primary Care Provider [phone] Renetta Olmstead Primary Care Provider [phone] Encounter Details Date Type Department Care Team (Late st Contact Info) Description 10/05/2017 Ancillary Orders Virtual Department [address] [place] [address] Lydia Johnson PA [address] [place] [address] [email or web address] Breast screening Social History Tobacco Use Types Packs/Day Years Used Date Smoking Tobacco: Former Cigarettes Q uit: 1985 Smokeless Tobacco: Never Alcohol Use Standard Drinks/Week Comments Yes 1 (1 standard drink = 0.6 oz pur e alcohol) Comments No Sex and Gender Information Value Date Recorded Sex Assigned at Female 11/21/2019 11:14 AM EDT Legal Sex Female 9:49 PM EDT Gender Identity Female 11/21/2019 11:14 AM EDT Sexual Orientation Straight 11/21/2019 11 :14 AM EDT documented as of this encounter Plan of Treatment Not on file documented as of this encounter Results * BI MAMMOGRAM SCREENING WITH TOMOSYNTHESIS WITH CAD (BILATERAL) (11/20/2017 7:42 AM EDT) Anatomical Region Laterality Modality Breast Left, Breast Right, Breast Bilateral Bila teral Mammography 11/20/2017 1:21 PM EDT Impressions 11/20/2017 1:32 PM EDT No mammographic signs of malignancy. Annual screening is recommended. BI-RADS CATEGORY: 2 - Benign finding. DENSITY: The breast tissue is heterogeneously dense, an appearance which lowers the sensitivity of mammography. POS - CDHMAM2 Narrative 11/20/2017 1:32 PM EDT Bilateral mammography is performed in conjunction with computed aided detection. 3-D tomography along with 2-D C view imaging was also performed. Comparison made to previous dated as far back as 10/31/11 and as recent as 11/11/2016. A small faint cluster of microcalcifications in the posterior outer right breast are stable in probably vascular. No suspicious masses, areas of architectural distortion or suspicious microcalcifications. Procedure Note Corbin Pagan MD - 11/20/2017 Bilateral mammography is performed in conjunction with computed aideddetection. 3-D tomography along with 2-D C view imaging was alsoperformed. Comparison made to previous dated as far back as 10/31/11 and asrecent as 11/11/2016. A small faint cluster of microcalcifications in the posterior outer rightbreast are stable in probably vascular. No suspicious masses, areas ofarchitectural distortion or suspicious microcalcifications. IMPRESSION: No mammographic signs of malignancy. Annual screening is recommended. BI-RADS CATEGORY: 2 - Benign finding. DENSITY: The breast tissue is heterogeneously dense, an appearance whichlowers the sensitivity of mammography. POS - CDHMAM2 Lydia MARINELLI IMG MG EXAMS Final Result documented in this encounter Visit Diagnoses Diagnosis Breast screening Breast screening, unspecified Breast screening Breast screening, unspecified documented in this encounter Additional Health Concerns Infection Onset Date Last Indicated Resolved Time C. diff 10/07/2020 10/07/2020 11/06/2020 1:23 AM EDT documented as of this encounter Care Teams Wiener Packer Relationship Specialty Start Date End Date Lydia Johnson PA [address] [place] [id number] [email or web address] PCP - General Unknown Provider Specialty 06/26/17 03/01/22 Marlene Gonzalez MD [address] [place] [address] [email or web address] PCP - General Internal Medicine 03/02/22 09/29/24 Renetta Olmstead PA [address] [place] [id number] PCP - General Physician Wall And Floor Tiler 09/30/24 documented as of this encounter Additional Source Comments The information contained in this document represents components of the legal health record. It is not the complete legal health record.[facility]
== END 2025-03-05 09:28 | disposition home or self-care (01) ==
LOC: HO.HMCFM 08:30
PROVIDERS: PCP Physician Assistant; Visit Provider Physician Assistant
DX: K76.0 Fatty (change of) liver, not elsewhere classified (principal); I10 Essential (primary) hypertension; E78.5 Hyperlipidemia, unspecified; R73.03 Prediabetes; R53.83 Other fatigue; M25.561 Pain in right knee; M25.562 Pain in left knee

== ENCOUNTER 2025-03-05 08:29 | Outpatient (REF) | payer MEDICARE, OTHER, SELFPAY ==
[2025-03-05 11:12] LABS: MANUAL DIFF FLAG NO
[2025-03-05 11:17] LABS: Hematocrit 39.8 % (37.0-47.0); Hemoglobin 12.7 g/dl (12.0-16.0); Imm Gran Abs Auto 0.02 X10*3/uL (0.00-0.03); Imm Gran Pct Auto 0.3 % (0.0-0.4); Lymphocytes Absolute Auto 1.5 X10*3/uL (1.2-4.9); Mean Corpuscular HGB Conc 31.9 g/dl (31.0-35.0); Mean Corpuscular Hemoglobin 28.2 pg (27.0-33.0); Mean Corpuscular Volume 88.2 fL (80.0-98.0); NRBC Abs Auto 0.000 X10*3/uL (0.0-0.012); NRBC Pct Auto 0.0 /100WBC (0.0-0.2); Platelet Count 273 X10*3/uL (160-400); Red Blood Count 4.51 X10*6/uL (4.20-5.50); White Blood Count 7.7 X10*3/uL (4.8-10.8)
[2025-03-05 11:30] LABS: Hemoglobin A1C 156.3724 umol/L; Total Hemoglobin (HGBA1C) 3373.0550 umol/L
[2025-03-05 12:01] LABS: Alanine Aminotransferase 25 U/L (0-31); Albumin Level 4.2 g/dL (3.5-5.0); Alkaline Phosphatase 93 U/L (39-117); Anion Gap 13 (12-20); Aspartate Amino Transferase 23 U/L (5-31); Blood Urea Nitrogen 14 mg/dL (9-16); Calcium 9.2 mg/dL (8.4-10.2); Carbon Dioxide 28 mmol/L (22-29); Chloride 102 mmol/L (96-108); Estimated Glomerular Filt Rate > 60; Ferritin 124 ng/mL (10-250); Iron 85 mcg/dL (30-160); Magnesium 2.4 mg/dL (1.6-2.6); Percent Iron Saturation 29 % (15-50); Potassium 4.0 mmol/L (3.3-5.1); Sodium 139 mmol/L (135-145); Total Iron Binding Capacity 292 mcg/dL (228-428); Total Protein 6.4 g/dL (6.5-8.0); Unsaturated Iron Binding 207 ug/dL
[2025-03-05 12:12] LABS: Folate 10.6 ng/mL (> or = 4.0); Vitamin B12 327 pg/mL (200-900)
[2025-03-05 14:51] LABS: Appearance Urine Hazy; Glucose Urine UA Negative (Negative); PH 7.0 (5.0-9.0); Specific Gravity - Urine 1.010 (1.005-1.025)
[2025-03-05 16:15] LABS: Microalbum/Creatinine Ratio Ur 7.4 ug/mg cr (<30)
[2025-03-06 05:53] LABS: Lyme Abs Screen <0.90 index
== END 2025-03-05 08:30 | disposition home or self-care (01) ==
LOC: HO.WFDLDS 08:29
PROVIDERS: PCP Physician Assistant; Visit Provider Physician Assistant
DX: K76.0 Fatty (change of) liver, not elsewhere classified (principal); R73.03 Prediabetes; I10 Essential (primary) hypertension; E78.5 Hyperlipidemia, unspecified; R53.83 Other fatigue; R73.01 Impaired fasting glucose; M25.561 Pain in right knee; M25.562 Pain in left knee
CPT/HCPCS: 36415; 80048; 80076; 81003; 82043; 82570; 82607; 82728; 82746; 83036; 83540; 83735; 84443; 85025; 85652; 86617; 86618; 99212

== ENCOUNTER 2025-06-18 10:45 | Outpatient (AMB) | payer MEDICARE, OTHER, SELFPAY ==
--- NOTE | 2025-06-18 10:54 | MHC.PC.OV ---
Vital Signs 06/18/25 10:56 Height 5 ft 5.43 in Weight 161 lb 8 oz BMI 26.5 BP 110/82 Blood Pressure Location Rt brachial Position Sitting Respiration 14 Pulse 66 Pulse Source Pulse Oximeter Pulse Oximetry (%) 99 Oxygen Delivery Method Room Air Intake Visit Reasons: med check Intake Note: Medication follow up Compounding And Finishing Supervisor Required: No Allergies cat dander Allergy (Unknown, Verified 06/18/25 10:55) Unknown grass Allergy (Unknown, Uncoded 06/18/25 10:55) Unknown Medication List - Last Reconciled 06/18/25 by Renetta Olmstead PA-C lisinopril 5 mg PO DAILY magnesium oxide 400 mg PO DAILY multivitamin 1 tab PO DAILY venlafaxine 25 mg PO DAILY Tobacco use date assessed: 03/05/25 Dental Screening Dental Screen Date: 03/05/25 HPI med check HPI Details Patient is a 64-year-old female who presents today for a follow up. She has a significant past medical history of hypertension, impaired fasting glucose, hyperlipidemia, Raynaud's, psoriasis, congenital dysfibrinogenemia, ulcerative colitis and history of endometrial cancer. 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 Given the history of mild bruising and no history of congenital bleeding disorder the recommendation was that she likely does not need prophylactic intervention for elective procedures but for procedures that do carry a significant risk of life-threatening bleeding it would be prudent to have FFP on standby. Also recommended that she avoids NSAIDs. CV: Blood pressure today in the office is 110/82. She states that they have been normal at home and she is on lisinopril 5 mg. She has been working hard on her diet. Musculoskeletal: She follows with [facility] for injections of right knee and this summer tore her left meniscus. She had an MRI which confirmed with this. She has been doing PT for both of her knees and injections. The left knee does appear to be improved with physical therapy but her right knee is not improving. She says that it is often feeling unstable and at times buckling on her. She has an appointment in July with Orthopedics again but is hoping for an MRI prior to this given that she has tried months of physical therapy and injections. Follows with [facility] for low back pain x years. S/p lumbar spine spine fusion in October 2024. Psych: On venlafaxine for postmenopausal hot flashes but does not feel effective fully. She does also struggle with falling asleep and staying asleep. The higher doses of the venlafaxine make her feel drugged. trazodone made her have weird dreams. Derm: Follows with dermatology for full skin check and was diagnosed with melanoma this year 2024. This is excised successfully. GI: Due to see GI and was referred to [facility] but booked at [facility] instead. She says that she is able to get in sooner. She has booked in July or August and we will be consulted for a colonoscopy and to review her possible fatty liver and cyst. Colonoscopy: Up-to-date, follows with [facility]. Her last colonoscopy was 2019 and she has not had a flare-up of her ulcerative colitis in over 3 years. booked with [facility] in Jul or Aug. Pap: Sees Dr. Daly for bpm analyst Oncology and regular surveillance of her endometrial cancer. Mammo: Up-to-date, 2024 Bone density: UTD- normal. [facility] Medical History (Updated 06/18/25 @ 11:15 by Renetta Olmstead PA-C) Congenital dysfibrinogenemia Urinary incontinence Ulcerative colitis Sacral radiculitis Raynauds syndrome Psoriasis Menopausal flushing Lumbar pain with radiation down right leg Impaired fasting glucose Hyperlipidemia HTN (hypertension) Hot flashes Fatty liver Endometrial cancer Surgical History (Updated 03/05/25 @ 08:45 by Kristin Escobar CMA) History of back surgery History of hysterectomy History of dilatation and curettage H/O vein stripping Hx of cholecystectomy Family History Mother Aneurysm HTN (hypertension) Father HTN (hypertension) Heart attack Maternal Grandmother Cancer of stomach Paternal Grandmother Cancer of breast Other Cancer of lung Cancer of skin FH: throat cancer Social History (Updated 03/05/25 @ 08:45 by Kristin Escobar CMA) Housing: House Alcohol intake: current Patient Tobacco Use Status: Former Tobacco user Cigarette Packs Per Day: 1 Years Smoked: 8 e-Cigarette/Vaping Use: Never Used service: No Current occupational status: employed 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 Current occupational exposures/hazards: No Cognitive needs: No Hearing needs: No Vision needs: No Questionnaire Thrive Questionnaire Date Thrive assessed: 07/25/24 I am a: Patient What is your living situation today?: I have a steady place to live Within the past 12 months, did the food you bought not last and you didn't have the money to get more?: Never true Within the past 12 months, did you worry whether your food would run out before you got money to buy more?: Never true Do you have trouble paying for medicines?: No Do you have trouble getting transportation to medical appointments?: No Do you have trouble paying your heating and electricity bill?: No Do you have trouble taking care of your child, family member or friend?: No Do you have trouble with day-to-day activities such as bathing, preparing meals, shopping, managing finances, etc.?: No Are you currently unemployed and looking for a job?: No Are you interested in more education?: No Please select the resources that you would like help with: None Currently or been in a relationship where the following occur: No concerns reported THRIVE Score: 0 SOPHIE-7 AMB Questionnaire SOPHIE-7 Date SOPHIE - 7 assessed: 08/01/24 Source: Developed by Drs. Tudne Julio, Sheila Walker, Sony Tilley and colleagues, with an educational robert from [employer]. Physical exam (Primary Care) Vital Signs: Last Vital Signs Pulse 66 06/18/25 10:56 Resp 14 06/18/25 10:56 BP 110/82 06/18/25 10:56 Pulse Ox 99 06/18/25 10:56 Oxygen Delivery Method Room Air 06/18/25 10:56 BMI result Body Mass Index 26.5 Tobacco/Smoking Status: Tobacco use Status Tobacco use date assessed 03/05/25 06/18/25 10:56 Patient Tobacco Use Status Former Tobacco user 06/18/25 10:56 e-Cigarette/Vaping Use Never Used 06/18/25 10:56 Thrive Assessment: Date of Thrive Assessment Date Thrive assessed 07/25/24 06/18/25 10:56 Currently or been in a relationship where the following occur: No concerns reported Const Orientation/consciousness: patient oriented x3 HENMT Ears: hearing grossly normal bilaterally Neck Thyroid: Thyroid normal Lymphatic: no lymphadenopathy noted Resp Auscultation: clear to auscultation bilaterally Cardio Rate: regular rate Rhythm: regular rhythm Heart sounds: S1 normal heart sound present and S2 normal heart sound present GI Inspection: Yes normal to inspection Palpation (GI): Soft to palpation and Other GI palpation findings present (nontender, no cva tenderness) Auscultation: normoactive bowel sounds Rectal Exam - Female: deferred Skin General skin exam: no rashes or lesions noted Neuro General: patient oriented x3, gait normal and no focal motor deficits Results Reviewed Results Reviewed: Laboratory Tests 08/01/24 03/05/25 03/05/25 09:08 09:38 09:50 WBC 7.7 RBC 4.51 Hgb 12.7 Hct 39.8 Plt Count 273 Sodium 139 Potassium 4.0 Chloride 102 Carbon Dioxide 28 Anion Gap 13 BUN 14 Creatinine 0.64 Estimated GFR > 60 Random Glucose 98 Hemoglobin A1c % 6.4 H Calcium 9.2 Magnesium 2.4 Iron 85 TIBC 292 % Saturation 29 Ferritin 124 Total Bilirubin 0.4 Direct Bilirubin 0.2 AST 23 ALT 25 Alkaline Phosphatase 93 Total Protein 6.4 L Albumin 4.2 Vitamin B12 327 Folate 10.6 TSH 1.07 Urine Creatinine 94.21 Urine Microalbumin 7.0 Microalb/Creat Ratio 7.4 Rheumatoid Factor < 13.0 CASANDRA Screen NEGATIVE Lyme Screen IgG & IgM <0.90 Coding Level of Care Code Est Pt Level 4 (46222) Complex visit Add On G2211 Diagnoses Fatty liver K76.0 Primary hypertension I10 Hypertension type: primary hypertension Hyperlipidemia E78.5 Prediabetes R73.03 Bilateral knee pain M25.561; M25.562 Right knee pain M25.561 Assessment & Plan Assessment & Plan (1) Fatty liver: Code(s): K76.0 - Fatty (change of) liver, not elsewhere classified Category: Medical Plan: She is scheduled to see GI We will monitor Discussed diet changes (2) HTN (hypertension): Code(s): I10 - Essential (primary) hypertension Category: Medical Qualifiers: Hypertension type: primary hypertension Qualified Code(s): I10 - Essential (primary) hypertension Plan: WNL. Continue current regimen (3) Hyperlipidemia: Code(s): E78.5 - Hyperlipidemia, unspecified Category: Medical Plan: Working on diet. (4) Prediabetes: Code(s): R73.03 - Prediabetes Category: Medical Plan: We will monitor A1c and blood sugar. Advised patient to watch her carbohydrate intake and exercise as tolerated Referral to a avionics technician (5) Bilateral knee pain: Code(s): M25.561 - Pain in right knee; M25.562 - Pain in left knee Category: Medical Plan: Did not tolerate tramadol. I have ordered an x-ray and MRI (6) Right knee pain: Code(s): M25.561 - Pain in right knee Category: Medical Plan: As above. Scheduled with ortho Orders: Orders XR knee RT 2V 06/18/25 M25.561 - Pain in right knee, M25.562 - Pain in left knee MR knee RT wo con 06/18/25 M23.51 - Chronic instability of knee, right knee, M25.561 - Pain in right knee Complete Blood Count Auto Diff 06/18/25 E78.5 - Hyperlipidemia, unspecified, I10 - Essential (primary) hypertension, K76.0 - Fatty (change of) liver, not elsewhere classified, M25.561 - Pain in right knee, R73.03 - Prediabetes Microalbumin, Random (w Creat) 06/18/25 E78.5 - Hyperlipidemia, unspecified, I10 - Essential (primary) hypertension, K76.0 - Fatty (change of) liver, not elsewhere classified, M25.561 - Pain in right knee, R73.03 - Prediabetes Comprehensive [place]. Panel Fast 06/18/25 E78.5 - Hyperlipidemia, unspecified, I10 - Essential (primary) hypertension, K76.0 - Fatty (change of) liver, not elsewhere classified, M25.561 - Pain in right knee, R73.03 - Prediabetes Hemoglobin A1c 06/18/25 E78.5 - Hyperlipidemia, unspecified, I10 - Essential (primary) hypertension, K76.0 - Fatty (change of) liver, not elsewhere classified, M25.561 - Pain in right knee, R73.01 - Impaired fasting glucose, R73.03 - Prediabetes TSH reflex Free T4 06/18/25 E78.5 - Hyperlipidemia, unspecified, I10 - Essential (primary) hypertension, K76.0 - Fatty (change of) liver, not elsewhere classified, M25.561 - Pain in right knee, R73.03 - Prediabetes Referrals Habilitation Training Specialist Nutrition Referral E78.5 - Hyperlipidemia, unspecified, I10 - Essential (primary) hypertension, R73.03 - Prediabetes
[2025-06-18 10:56] VITALS: BP 110/82; PULSE 66; RESP 14; O2SAT 99; BMI 26.5
--- OUTSIDE RECORDS SUMMARY | 2025-06-18 12:26 | XMS_ITS | Encounter Summary ---
Author Organization [facility] Address [address] [place] [id number] Phone Care Team Providers Care Annual Giving Director Name Role Phone Lydia Johnson Primary Care Provider [phone] Marlene Gonzalez MD Primary Care Provider Renetta Olmstead Primary Care Provider [phone] Encounter Details Date Type Department Care Team (Late st Contact Info) Description 11/02/2020 Ancillary Orders Virtual Department [address] [place] [address] Lydia Johnson PA [address] [place] [address] [email or web address] Cervicalgia; Numbness of fingers Social History Tobacco Use Types Packs/Day Years Used Date Smoking Tobacco: Former Cigarettes Q uit: 1985 Smokeless Tobacco: Never Alcohol Use Standard Drinks/Week Comments Yes 1 (1 standard drink = 0.6 oz pur e alcohol) weekly Comments No Sex and Gender Information Value Date Recorded Sex Assigned at Female 11/21/2019 11:14 AM EDT Legal Sex Female 9:49 PM EDT Gender Identity Female 11/21/2019 11:14 AM EDT Sexual Orientation Straight 11/21/2019 11 :14 AM EDT documented as of this encounter Plan of Treatment Not on file documented as of this encounter Results * XR CERVICAL SPINE 4-5 VIEWS (11/05/2020 1:17 PM EDT) Anatomical Region Laterality Modality C-spine Computed Radiogr aphy 11/05/2020 1:19 PM EDT Impressions 11/05/2020 1:23 PM EDT Prominent degenerative disc and endplate changes at C6-C7 and C5-C6. Narrative 11/05/2020 1:23 PM EDT HISTORY: Cervical pain and numbness in the fingers. COMPARISON: MRI cervical spine 12/03/2008. VIEWS: AP, lateral, bilateral foraminal and open-mouth odontoid views. FINDINGS: Fairly severe disc space narrowing and degenerative endplate changes at C6-C7 which appear mildly progressed from 12/03/2008. Small posterior osteophytes at this level and moderate size anterior osteophytes. Similar changes have developed at C5-C6. Endplate changes are slightly less severe. Other levels are well-maintained. No subluxations. Mild-moderate bilateral neuroforaminal narrowing at C5-C6 and C6-C7 by uncovertebral joint osteophytes. No evidence of prominent facet arthropathy. Prevertebral soft tissues are normal. Neuroforaminal Procedure Note Corbin Ortiz MD - 11/05/2020 HISTORY: Cervical pain and numbness in the fingers. COMPARISON: MRI cervical spine 12/03/2008. VIEWS: AP, lateral, bilateral foraminal and open-mouth odontoid views. FINDINGS: Fairly severe disc space narrowing and degenerative endplate changes atC6-C7 which appear mildly progressed from 12/03/2008. Small posteriorosteophytes at this level and moderate size anterior osteophytes. Similarchanges have developed at C5-C6. Endplate changes are slightly lesssevere. Other levels are well-maintained. No subluxations. Mild-moderate bilateral neuroforaminal narrowing at C5-C6 and C6-C7 byuncovertebral joint osteophytes. No evidence of prominent facetarthropathy. Prevertebral soft tissues are normal. Neuroforaminal IMPRESSION: Prominent degenerative disc and endplate changes at C6-C7 and C5-C6. us Lydia MARINELLI IMG XR SPINE Final Result documented in this encounter Visit Diagnoses Diagnosis Cervicalgia Numbness of fingers Disturbance of skin sensation Cervicalgia Numbness of fingers Disturbance of skin sensation documented in this encounter Additional Health Concerns Infection Onset Date Last Indicated Resolved Time C. diff 10/07/2020 10/07/2020 11/06/2020 1:23 AM EDT documented as of this encounter Care Teams Annual Giving Director Relationship Specialty Start Date End Date Lydia Johnson PA [address] [place] [phone] [email or web address] PCP - General Unknown Provider Specialty 06/26/17 03/01/22 Marlene Gonzalez MD [address] [place] [phone] [email or web address] PCP - General Internal Medicine 03/02/22 09/29/24 Renetta Olmstead PA [address] [place] [phone] PCP - General Physician Senior Cognos Developer 09/30/24 documented as of this encounter Additional Source Comments The information contained in this document represents components of the legal health record. It is not the complete legal health record.[facility]
--- OUTSIDE RECORDS SUMMARY | 2025-06-18 12:26 | XMS_ITS | Encounter Summary ---
Author Organization [facility] Address [address] [place] [phone] Phone Care Team Providers Care Service And Repair Supervisor Name Role Phone Lydia Johnson Primary Care Provider [phone] Marlene Gonzalez MD Primary Care Provider [phone] Renetta Olmstead Primary Care Provider [phone] Encounter Details Date Type Department Care Team (Late st Contact Info) Description 12/05/2021 Procedure Pass [facility], [address] [address] Social History Tobacco Use Types Packs/Day Years Used Date Smoking Tobacco: Former Cigarettes Q uit: 07/17/1984 Smokeless Tobacco: Never Alcohol Use Standard Drinks/Week [...] on file documented as of this encounter Visit Diagnoses Not on filedocumented in this encounter Care Teams Service And Repair Supervisor Relationship Specialty Start Date End Date Lydia Johnson PA [address] [place] [address] [email or web address] PCP - General Unknown Provider Specialty 06/26/17 03/01/22 Marlene Gonzalez MD [address] [place] [phone] [email or web address] PCP - General Internal Medicine 03/02/22 09/29/24 Renetta Olmstead PA [address] [place] [phone] PCP - General Physician Customer Orders Clerk 09/30/24 documented as of this encounter Additional Source Comments The information contained in this document represents components of the legal health record. It is not the complete legal health record.[facility]
--- OUTSIDE RECORDS SUMMARY | 2025-06-18 12:26 | XMS_ITS | Encounter Summary ---
Author Organization [facility] Address [address] [facility] [address] [facility] [address] [place] [address] Phone Care Team Providers Care Trap Operator Name Role Phone Lydia Johsnon Primary Care Provider Marlene oGnzalez MD Primary Care Provider Renetta Olmstead Primary Care Provider [phone] Encounter Details Date Type Department Care Team (Latest Contact Info) Description 05/21/2019 Transcribe Orders [address] [address] Lydia Johnson PA [address] [place] [address] [email or web address] Urinary tract infection without hematuria, site unspecified (Primary Dx) Social History Tobacco Use Types Packs/Day Years Used Date Smoking Tobacco: Former Cigarettes Q uit: 1985 Smokeless Tobacco: Never Alcohol Use Standard Drinks/Week Comments Yes 1 (1 standard drink = 0.6 oz pur e alcohol) Occasionally Comments No Sex and Gender Information Value Date Recorded Sex Assigned at Female 11/21/2019 11:14 AM EDT Legal Sex Female 9:49 PM EDT Gender Identity Female 11/21/2019 11:14 AM EDT Sexual Orientation Straight 11/21/2019 11 :14 AM EDT documented as of this encounter Plan of Treatment Not on file documented as of this encounter Results * Urine culture (05/21/2019 9:04 AM EST) Special Requests None 05/21/2019 9:04 AM EST [facility] GRAM STAIN Few GRAM POSITIVE RODS 05/22/2019 8:45 AM EST [facility] Urine Culture <10,000 colony forming units per mL 05/22/2019 9:41 AM EST [facility] Urine (Urine) 05/21/2019 9:0 4 AM EST 05/21/2019 9:07 AM EST [facility] MICROBIOLOGY CULTURE ORDERA BLES Final Result Performing Organization Address [facility] Co de Phone Number [address] [address] * (ABNORMAL) URINALYSIS WITH SEDIMENT (05/21/2019 9:04 AM EST) WBC 0-4(A) NONE SEEN /hpf [facility] RBC 0-2(A) NONE SEEN /hpf [facility] URINE EPITHELIAL 5-10(A) NONE SEEN [facility] MUCUS Trace(A) NONE SEEN /hpf [facility] BACTERIA 2+(A) NONE SEEN [facility] COLOR Yellow Yellow [facility] CLARITY HAZY [facility] GLUCOSE Negative Negative [facility] BILI Negative Negative [facility] KETONES Negative Negative [facility] SPECIFIC GRAVITY 1.010 1.005 - 1.030 [facility] BLOOD Trace(A) Negative [facility] PH 7.0 5.0 - 8.0 [facility] Protein-UA Negative Negative [facility] NITRITE Negative Negative [facility] Leukocyte esterase, ur 1+(A) Negative [facility] Urine (Urine) 05/21/2019 9:0 4 AM EST 05/21/2019 9:06 AM EST [facility] URINE ORDERABLES Final Resu lt Performing Organization Address [facility] Co de Phone Number [address] [phone] documented in this encounter Visit Diagnoses Diagnosis Urinary tract infection without hematuria, site unspecified- Primary documented in this encounter Additional Health Concerns Infection Onset Date Last Indicated Resolved Time C. diff 10/07/2020 10/07/2020 11/06/2020 1:23 AM EDT documented as of this encounter Care Teams Trap Operator Relationship Specialty Start Date End Date Lydia Johnson PA [address] [place] [phone] [email or web address] PCP - General Unknown Provider Specialty 06/26/17 03/01/22 Marlene Gonzalez MD [address] [place] [email or web address] PCP - General Internal Medicine 03/02/22 09/29/24 Renetta Olmstead PA [address] [place] [address] PCP - General Physician Transportation Department Head 09/30/24 documented as of this encounter Additional Source Comments The information contained in this document represents components of the legal health record. It is not the complete legal health record.[facility]
--- OUTSIDE RECORDS SUMMARY | 2025-06-18 12:26 | XMS_ITS | Encounter Summary ---
Author Organization [facility] Address [address] [facility] [address] [place] [address] Phone Care Team Providers Care Rent Collector Name Role Phone Lydia Johnson Primary Care Provider [phone] Marlene Gonzalez MD Primary Care Provider [phone] Renetta Olmstead Primary Care Provider [phone] Encounter Details Date Type Department Care Team (Latest Contact Info) Description 05/08/2019 Transcribe Orders [facility] Phleb [address] [address] Lydia Johnson PA [address] [place] [address] [email or web address] Hyperlipidemia, unspecified hyperlipidemia type (Primary Dx); Routine general medical examination at a health care facility; Ulcerative proctitis with complication Social History Tobacco Use Types Packs/Day Years [...] documented as of this encounter Results * (ABNORMAL) URINALYSIS WITH SEDIMENT (05/08/2019 7:29 AM EDT) WBC 21-49(A) NONE SEEN /hpf [facility] RBC 3-5(A) NONE SEEN /hpf [facility] URINE EPITHELIAL 21-49(A) NONE SEEN [facility] MUCUS Trace(A) NONE SEEN /hpf [facility] BACTERIA 2+(A) NONE SEEN [facility] COLOR Yellow Yellow [facility] CLARITY HAZY [facility] GLUCOSE Negative Negative [facility] BILI Negative Negative [facility] KETONES Negative Negative [facility] SPECIFIC GRAVITY 1.015 1.005 - 1.030 [facility] BLOOD Trace(A) Negative [facility] PH 7.5 5.0 - 8.0 [facility] Protein-UA Negative Negative [facility] NITRITE Negative Negative [facility] Leukocyte esterase, ur 3+(A) Negative [facility] Urine (Urine) 05/08/2019 7:2 9 AM EDT 05/08/2019 8:27 AM EDT us Lydia MARINELLI LAB URINE ORDERABLES Final Resu lt [facility] [address] [place] [address] * CBC (05/08/2019 7:29 AM EDT) WBC 5.52 3.40 - 11.20 K/uL [facility] RBC 4.51 3.80 - 4.80 M/uL [facility] HGB 13.3 12.0 - 15.0 g/dL [facility] HCT 40.9 36.0 - 46.0 % [facility] PLT 281 130 - 400 K/uL [facility] MCV 90.7 79.0 - 98.0 fL [facility] MCH 29.5 27.0 - 34.8 pg [facility] MCHC 32.5 31.5 - 36.0 g/dL [facility] RDW 13.0 10.8 - 14.6 % [facility] MPV 10.0 9.4 - 12.4 fl [facility] NRBC 0.00 0.00 /100 WBCs [facility] ABSOLUTE NRBC 0.00 0.00 K/uL [facility] Blood 05/08/2019 7:29 AM EDT 05/08/2019 8:27 AM EDT Lydia MARINELLI LAB BLOOD BKR ORDERABLES Final Result [address] [address] * Lipid panel (05/08/2019 7:29 AM EDT) HDL 55 mg/dL [facility] Comment: Interpretation <40 mg/dL: Low HDL cholesterol (major risk factor for CHD) Greater than or equal to 60 mg/dL: High HDL cholesterol ( negative risk factor for CHD) HDL - cholesterol is affected by a number of factors, e.g. smoking, excerise, hormones, sex and age. CHOLESTEROL 185 0 - 240 mg/dL [facility] TRIGLYCERIDES 124 30 - 160 mg/dL [facility] LDL 105 50 - 129 mg/dL [facility] Comment: LDL levels in terms of risk for coronary heart disease: <100 mg/dL: Optimal 100-129 mg/dL: Near or above optimal 130-159 mg/dL: Borderline high 160-189 mg/dL: High >190 mg/dL: Very High CARDIAC RISK RATIO 3.4 3.3 - 4.4 C [facility] Blood 05/08/2019 7:29 AM EDT 05/08/2019 8:27 AM EDT us Lydia MARINELLI LAB BLOOD BKR ORDERABLES Final Result [address] [address] * (ABNORMAL) Comprehensive metabolic panel (05/08/2019 7:29 AM EDT) SODIUM 143 133 - 146 mmol/L [facility] POTASSIUM 4.3 3.3 - 5.1 mmol/L [facility] CHLORIDE 103 96 - 108 mmol/L [facility] CO2 31 21 - 35 mmol/L [facility] BUN 10 6 - 19 mg/dL [facility] CREATININE 0.60 0.5 - 1.5 mg/dL [facility] GLUCOSE 102(H) 70 - 99 mg/dL [facility] ALBUMIN 4.7 3.9 - 4.8 g/dL [facility] TOTAL PROTEIN 7.4 6.5 - 8.0 g/dL [facility] CALCIUM 9.4 8.4 - 10.3 mg/dL [facility] ALKALINE PHOSPHATASE 55 39 - 117 U/L [facility] TOTAL BILIRUBIN 0.3 0.0 - 1.2 mg/dL [facility] AST 20 0 - 37 U/L [facility] ALT 17 0 - 40 U/L [facility] GLOBULIN 2.7 1 - 4.8 g/dL [facility] EGFR 100 >59 mL/min/1.7 3m2 [facility] Comment:If patient is black, multiply result by 1.159. Estimated glomerular filtration rate calculated using the CKD-EPI equation. ANION GAP 13 10 - 20 mmol/L [facility] Blood 05/08/2019 7:29 AM EDT 05/08/2019 8:27 AM EDT Lydia MARINELLI LAB BLOOD BKR ORDERABLES Final Result Performing Organization Address City/State/[facility] Co de Phone Number [address] [address] documented in this encounter Visit Diagnoses Diagnosis Hyperlipidemia, unspecified hyperlipidemia type- Primary Routine general medical examination at a health care facility Ulcerative proctitis with complication documented in this encounter Additional Health Concerns Infection Onset Date Last Indicated Resolved Time C. diff 10/07/2020 10/07/2020 11/06/2020 1:23 AM EDT documented as of this encounter Care Teams Rent Collector Relationship Specialty Start Date End Date Lydia [place] [address] [email or web address] PCP - General Unknown Provider Specialty 06/26/17 03/01/22 Marlene Gonzalez MD [address] [place] [address] [email or web address] PCP - General Internal Medicine 03/02/22 09/29/24 Renetta Olmstead PA [address] [place] [id number] PCP - General Physician Procurement Engineer 09/30/24 documented as of this encounter Additional Source Comments The information contained in this document represents components of the legal health record. It is not the complete legal health record.[facility]
--- OUTSIDE RECORDS SUMMARY | 2025-06-18 12:26 | XMS_ITS | Encounter Summary ---
Author Organization [facility] Address [address] [address] Phone Care Team Providers Care Funeral Car Chauffeur Name Role Phone Lydia Johnson Primary Care Provider [phone] Marlene Gonzalez MD Primary Care Provider Renetta Olmstead Primary Care Provider [phone] Encounter Details Date Type Department Care Team (Late st Contact Info) Description 11/30/2020 Ancillary Orders Virtual Department [address] [place] [address] Lydia Johnson PA [address] [place] [address] [email or web address] Breast screening Social History Tobacco Use Types [...] MAMMOGRAM SCREENING WITH TOMOSYNTHESIS WITH CAD (BILATERAL) (03/01/2021 8:08 AM EDT) Anatomical Region Laterality Modality Breast Left, Breast Right, Breast Bilateral Bila teral Mammography 03/01/2021 10:5 0 AM EDT Impressions 03/01/2021 10:53 AM EDT No findings suspicious for malignancy are identified. In the absence of a worrisome palpable abnormality, annual screening mammography is recommended. BI-RADS CATEGORY: 1 - Negative. DENSITY: The breast tissue is heterogeneously dense, which could obscure a lesion on mammography. Narrative 03/01/2021 10:53 AM EDT COMPARISON: 11/07/2014 through 02/28/2020 Bilateral 3-D tomosynthesis with 2-D reconstructions in the CC and MLO projection. Computer-aided detection system was utilized. No new mass, asymmetry, architectural distortion or suspicious calcifications have become apparent on either side. Procedure Note Shawn Gomze MD - 03/01/2021 COMPARISON: 11/07/2014 through 02/28/2020 Bilateral 3-D tomosynthesis with 2-D reconstructions in the CC and MLOprojection. Computer-aided detection system was utilized. No new mass, asymmetry, architectural distortion or suspiciouscalcifications have become apparent on either side. IMPRESSION: No findings suspicious for malignancy are identified. In the absence of aworrisome palpable abnormality, annual screening mammography isrecommended. BI-RADS CATEGORY: 1 - Negative. DENSITY: The breast tissue is heterogeneously dense, which could obscurea lesion on mammography. Lydia MARINELLI IMG MG EXAMS Final Result documented in this encounter Visit Diagnoses Diagnosis Breast screening Breast screening, unspecified Breast screening Breast screening, unspecified documented in this encounter Care Teams Funeral Car Chauffeur Relationship Specialty Start Date [place] [address] PCP - General Unknown Provider Specialty 06/26/17 03/01/22 Marlene Gonzalez MD [address] [place] [phone] [email or web address] PCP - General Internal Medicine 03/02/22 09/29/24 Renetta Olmstead PA [address] [place] [address] PCP - General Physician Mailing Machine Operator 09/30/24 documented as of this encounter Additional Source Comments The information contained in this document represents components of the legal health record. It is not the complete legal health record.[facility]
--- OUTSIDE RECORDS SUMMARY | 2025-06-18 12:26 | XMS_ITS | Encounter Summary ---
Author Organization [facility] Address [address] [address] Phone Care Team Providers Care General Manager Food Name Role Phone Lydia Johnson Primary Care Provider [phone] Marlene Gonzalez MD Primary Care Provider Renetta Olmstead Primary Care Provider [phone] Encounter Details Date Type Department Care Team (Late st Contact Info) Description 10/05/2017 Ancillary Orders Virtual Department [address] [place] [address] Lydia Johnson PA [address] [place] [address] [email or web address] Breast screening Social History Tobacco Use Types [...] documented as of this encounter Care Teams General Manager Food Relationship Specialty Start Date End Date Lydia Johnson PA [address] [place] [address] [email or web address] PCP - General Unknown Provider Specialty 06/26/17 03/01/22 Marlene Gonzalez MD [address] [place] [address] [email or web address] PCP - General Internal Medicine 03/02/22 09/29/24 Renetta Olmstead PA [address] [place] [id number] PCP - General Physician Scientific Process Operator 09/30/24 documented as of this encounter Additional Source Comments The information contained in this document represents components of the legal health record. It is not the complete legal health record.[facility]
--- OUTSIDE RECORDS SUMMARY | 2025-06-18 12:26 | XMS_ITS | Encounter Summary ---
Author Organization [facility] Address [address] [facility] [address] [place] [address] Phone Care Team Providers Care Utility Systems Repairer Operator Name Role Phone Marlene Gonzalez MD Primary Care Provider Renetta Olmstead Primary Care Provider [phone] Encounter Details Date Type Department Care Team (Late st Contact Info) Description 12/19/2022 Transcribe Orders Virtual Department [address] [place] [address] Renetta Olmsteda PA [address] [place], [place] [phone] Breast screening (Primary Dx) Social History Tobacco Use Types Packs/Day Years Used Date Smoking Tobacco: Former Cigarettes Q uit: 07/17/1984 Smokeless Tobacco: Never Alcohol Use Standard Drinks/Week Comments Yes 1 (1 standard drink = 0.6 oz pur e alcohol) weekly Education Answer Date Recorded Are you interested in more education? Not on barb e 11/11/2022 Are you concerned about learning? Not on file 11/11/2022 No 11/11/2022 No 11/11/2022 Digital Access Answer Date Recorded No 12/12/2022 No 12/12/2022 Reliable internet access at home? Not on file 12/12/2022 Device with a working camera? Not on file Comments No Sex and Gender Information Value Date Recorded Sex Assigned at Female 11/21/2019 11:14 AM EDT Legal Sex Female 9:49 PM EDT Gender Identity Female 11/21/2019 11:14 AM EDT Sexual Orientation Straight 11/21/2019 11 :14 AM EDT documented as of this encounter Plan of Treatment Not on file documented as of this encounter Visit Diagnoses Diagnosis Breast screening- Primary Breast screening, unspecified documented in this encounter Care Teams Utility Systems Repairer Operator Relationship Specialty Start Date End Date Marlene Gonzalez MD [address] [place] [address] [email or web address] PCP - General Internal Medicine 03/02/22 09/29/24 Renetta Olmstead PA [address] [place] [id number] PCP - General Physician Restorative Art Embalmer 09/30/24 documented as of this encounter Additional Source Comments The information contained in this document represents components of the legal health record. It is not the complete legal health record.[facility]
--- OUTSIDE RECORDS SUMMARY | 2025-06-18 12:26 | XMS_ITS | Encounter Summary ---
Author Organization [facility] Address [address] [facility] [address] [place] [address] Phone Care Team Providers Care Sex Crimes Detective Name Role Phone Lydia Johnson Primary Care Provider [phone] Marlene Gonzalez MD Primary Care Provider [phone] Renetta Olmstead Primary Care Provider [phone] Reason for Referral * - Closed Specialty Diagnoses / Procedures Referred By Valentina tucker Referred To Contact Diagnoses Chest pain, unspecified type Malaise and fatigue Procedures Stress Test Exercise Lydia Johnson PA Phone: tel: fax: mailto: Referral ID Status Reason Start Date Expiration Date Visits Re quested Visits Authorized [id number] Closed 11/26/2018 11/26/2019 1 1 Encounter Details Date Type Department Care Team (Latest Contact Info) Description 11/26/2018 Transcribe [facility] [address], [address] [place] [address] Lydia Johnson PA [address] [place] [address] [email or web address] Chest pain, unspecified type (Primary Dx); Malaise and fatigue Social History Tobacco Use Types Packs/Day Years Used Date Smoking Tobacco: Former Cigarettes Q uit: 1984 Smokeless Tobacco: Never Alcohol Use Standard Drinks/Week [...] documented as of this encounter Results * Stress Test Exercise (11/29/2018 12:11 PM EDT) Anatomical Region Laterality Modality Heart Ultrasound Narrative 12/06/2018 4:03 PM EDT Response to Stress Exercise Stress Test Report: Summary: Resting ECG: SR HR 67 BPM Chest pain at rest: none Arrhythmias at baseline: none Conclusion: Patient exercised for 9:40 minutes on a standard Rafael protocol achieving 91% MPHR and 12.3 METS. Test terminated due to fatigue. Summary: 1. EKG: nonspecific ST-T wave changes in II, III, aVF, V5-V6 not meeting criteria for ischemia. 2. Symptoms: No exertional chest pain or symptoms concerning for angina 3. Exercise physiology: Normal heart rate response to exercise. Max HR 148 BPM with normal HR recovery. Max BP 140/82 from baseline BP of 118/78. Normal BP response to exercise. Good functional capacity for age. See attached stress report for full details. 4. Arrhythmia: None 5. Smith Treadmill Score = 5, low risk for cardiac event Conclusion: Normal ETT with EKG changes not meeting criteria for ischemia. Smith Treadmill Score of 5, low risk for cardiac event. No ischemic EKG changes. Vital signs at baseline at time of discharge from the lab. EKG reviewed with Dr. Stallings. Vonda Phan, SURVEILLANCE OPERATOR, MPH . us Lydia MARINELLI CV STRESS ORDERABLES Final Resu lt documented in this encounter Visit Diagnoses Diagnosis Chest pain, unspecified type- Primary Malaise and fatigue Chest pain, unspecified type Malaise and fatigue documented in this encounter Additional Health Concerns Infection Onset Date Last Indicated Resolved Time C. diff 10/07/2020 10/07/202011/0611/06/2020 1:23 AM EDT documented as of this encounter Care Teams Sex Crimes Detective Relationship Specialty Start Date End Date Lydia Johnson PA [address] [place] [address] [email or web address] PCP - General Unknown Provider Specialty 06/26/17 03/01/22 Marlene Gonzalez MD [address] [place] [address] [email or web address] PCP - General Internal Medicine 03/02/22 09/29/24 Renetta Olmstead PA [address] [place] [address] PCP - General Physician Procurement Forester 09/30/24 documented as of this encounter Additional Source Comments The information contained in this document represents components of the legal health record. It is not the complete legal health record.[facility]
--- OUTSIDE RECORDS SUMMARY | 2025-06-18 12:26 | XMS_ITS | Encounter Summary ---
Author Organization [facility] Address [address] [facility] [address] [place] [address] Phone Care Team Providers Care Residential Finish Carpenter Name Role Phone Lydia Johnson Primary Care Provider Marlene Gonzalez MD Primary Care Provider Renetta Olmstead Primary Care Provider [phone] Encounter Details Date Type Department Care Team (Latest Contact Info) Description 10/04/2017 Transcribe Orders [facility] Phle[facility] [address] [place] [address] Chencho Kumar MD [address] [place] [phone] [email or web address] Abnormal urine (Primary Dx); UTI (urinary tract infection), uncomplicated Social History Tobacco Use Types Packs/Day Years [...] as of this encounter Results * (ABNORMAL) Urinalysis with sediment (10/04/2017 5:59 PM EDT) WBC 5-10(A) NONE SEEN /hpf [facility] RBC 0-2(A) NONE SEEN /hpf [facility] URINE EPITHELIAL 0-4(A) NONE SEEN [facility] MUCUS Trace(A) NONE SEEN /hpf [facility] BACTERIA 1+(A) NONE SEEN [facility] COLOR Yellow Yellow [facility] CLARITY Clear [facility] GLUCOSE Negative Negative [facility] BILI Negative Negative [facility] KETONES Negative Negative [facility] SPECIFIC GRAVITY 1.010 1.005 - 1.030 [facility] BLOOD Negative Negative [facility] PH 7.0 5.0 - 8.0 [facility] Protein-UA Negative Negative [facility] NITRITE Negative Negative [facility] Leukocyte esterase, ur 1+(A) Negative [facility] Urine (Urine) 10/04/2017 5:5 9 PM EDT 10/04/2017 6:01 PM EDT us Chencho Kumar MD LAB URINE ORDERABLES Final Res ult Performing Organization Address City/State/[facility] Co de Phone Number [facility] [address] [place] [address] documented in this encounter Visit Diagnoses Diagnosis Abnormal urine- Primary Other nonspecific finding on examination of urine UTI (urinary tract infection), uncomplicated Urinary tract infection, site not specified documented in this encounter Additional Health Concerns Infection Onset Date Last Indicated Resolved Time C. diff 10/07/2020 10/07/2020 11/06/2020 1:23 AM EDT documented as of this encounter Care Teams Residential Finish Carpenter Relationship Specialty Start Date End Date Lydia Johnson PA [address] [place] [address] [email or web address] PCP - General Unknown Provider Specialty 06/26/17 03/01/22 Marlene Gonzalez MD [address] [place] [id number] PCP - General Internal Medicine 03/02/22 09/29/24 Renetta Olmstead PA [address] [place] [address] PCP - General Physician Robotype Operator 09/30/24 documented as of this encounter Additional Source Comments The information contained in this document represents components of the legal health record. It is not the complete legal health record.[facility]
--- OUTSIDE RECORDS SUMMARY | 2025-06-18 12:27 | XMS_ITS | Encounter Summary ---
Author Organization [facility] Address [address] [facility] [address] [place] [address] Phone Care Team Providers Care Commercial Lines Account Manager Name Role Phone Lydia Johnson Primary Care Provider Marlene Gonzalez MD Primary Care Provider Renetta Olmstead Primary Care Provider [phone] Encounter Details Date Type Department Care Team (Latest Contact Info) Description 07/13/2017 Transcribe Orders [facility] Phleb Main [address] [place] [address] Lydia Johnson PA [address] [place] [address] [email or web address] Routine medical exam (Primary Dx); High cholesterol Social History Tobacco Use Types Packs/Day Years [...] on file documented as of this encounter Procedures Procedure Name Priority Date/Time Associated Diagnosis Comments URINALYSIS WITH SEDIMENT Routine 07/13/2017 7:06 AM EST Routine medical exam High cholesterol LIPID PANEL Routine 07/13/2017 7:06 AM EST Routine medical exam High cholesterol documented in this encounter Results * (ABNORMAL) Lipid panel (07/13/2017 7:06 AM EST) HDL 65 mg/dL [facility] Comment: Interpretation: Risk Level Females Decreased >55mg/dL Average 50-55 mg/dL Increased <50 mg/dL CHOLESTEROL 234 0 - 240 mg/dL [facility] TRIGLYCERIDES 144 30 - 160 mg/dL [facility] LDL 140(H) 50 - 129 mg/dL [facility] Comment: LDL levels in terms of risk for coronary heart disease: <100 mg/dL: Optimal 100-129 mg/dL: Near or above optimal 130-159 mg/dL: Borderline high 160-189 mg/dL: High >190 mg/dL: Very High CARDIAC RISK RATIO 3.6 3.3 - 4.4 C [facility] Blood 07/13/2017 7:06 AM EST 07/13/2017 7:12 AM EST us Lydia MARINELLI LAB BLOOD BKR ORDERABLES Final Result Performing Organization Address City/State/[facility] Co de Phone Number [address] [address] * (ABNORMAL) Urinalysis with sediment (07/13/2017 7:06 AM EST) WBC 0-4(A) NONE SEEN /hpf [facility] RBC 0-2(A) NONE SEEN /hpf [facility] URINE EPITHELIAL 5-10(A) NONE SEEN [facility] MUCUS 2+(A) NONE SEEN /hpf [facility] BACTERIA 2+(A) NONE SEEN [facility] COLOR Yellow Yellow [facility] CLARITY HAZY [facility] GLUCOSE Negative Negative [facility] BILI Negative Negative [facility] KETONES Negative Negative [facility] SPECIFIC GRAVITY 1.025 1.005 - 1.030 [facility] BLOOD Negative Negative [facility] PH 6.0 5.0 - 8.0 [facility] Protein-UA Negative Negative [facility] NITRITE Negative Negative [facility] Leukocyte esterase, ur 1+(A) Negative [facility] Urine (Urine) 07/13/2017 7:0 6 AM EST 07/13/2017 7:12 AM EST us Lydia MARINELLI LAB URINE ORDERABLES Final Resu lt [facility] [address] [place] [address] documented in this encounter Visit Diagnoses Diagnosis Routine medical exam- Primary Routine general medical examination at a health care facility High cholesterol Pure hypercholesterolemia documented in this encounter Additional Health Concerns Infection Onset Date Last Indicated Resolved Time C. diff 10/07/2020 10/07/2020 11/06/2020 1:23 AM EDT documented as of this encounter Care Teams Commercial Lines Account Manager Relationship Specialty Start Date End Date Lydia Johnson PA [address] [place] [address] [email or web address] PCP - General Unknown Provider Specialty 06/26/17 03/01/22 Marlene Gonzalez MD [address] [place] [address] [email or web address] PCP - General Internal Medicine 03/02/22 09/29/24 Renetta Olmstead PA [address] [place] [id number] PCP - General Physician Radiation / Chemistry Technician 09/30/24 documented as of this encounter Additional Source Comments The information contained in this document represents components of the legal health record. It is not the complete legal health record.[facility]
--- OUTSIDE RECORDS SUMMARY | 2025-06-18 12:27 | XMS_ITS | Encounter Summary ---
Author Organization [facility] Address [address] [facility] [address] [place] [id number] Phone Care Team Providers Care Import Clerk Name Role Phone Lydia Johnson Primary Care Provider [phone] Marlene Gonzalez MD Primary Care Provider [phone] Renetta Olmstead Primary Care Provider [phone] Encounter Details Date Type Department Care Team (Late st Contact Info) Description 02/03/2021 Procedure [facility], [address] [address] Social History Tobacco Use Types Packs/Day Years [...] on filedocumented in this encounter Care Teams Import Clerk Relationship Specialty Start Date End Date Lydia Johnson PA [address] [place] [address] [email or web address] PCP - General Unknown Provider Specialty 06/26/17 03/01/22 Marlene Gonzalez MD [address] [place] [id number] [email or web address] PCP - General Internal Medicine 03/02/22 09/29/24 Renetta Olmstead PA [address] [place] [address] PCP - General Physician Messaging Architect 09/30/24 documented as of this encounter Additional Source Comments The information contained in this document represents components of the legal health record. It is not the complete legal health record.[email or web address]
--- OUTSIDE RECORDS SUMMARY | 2025-06-18 12:27 | XMS_ITS | Data Portability ---
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 She continues to fatigue with LE strengthening. Plan: Continued PT is recommended at 2x/week for 6 weeks to decrease pain, improve hip strength, and increase participation in functional activities. Not available 09/19/2024 15:07:39 10/03/2024 10/03/2024 Assessment: Reviewed pelvic tilt with concentration on pelvic stability. Able to maintain stability with decreased speed. Mild sciatic pain at end of session. Able to complete table hip exercises with no complaint of low back pain. Plan: Continued PT is recommended at 2x/week for 6 weeks to decrease pain, improve hip strength, and increase participation in functional activities. Not available 10/03/2024 14:50:07 Plan of Treatment Reminders Order Date Submit Date Provider Last Modified By Organization Details Last Modified Time Details Appointments NEW PROBLEM 10 2024 10:30A M Gagandeep Trejo MD Not available Not available Not available Lab None recorded. Referral None recorded. Procedures None recorded. Surgeries None recorded. Imaging XR, knee, 4 or more view - uc rm left knee 2024 025 [email or web address], [address], [address], [place], [address], 01/14/2025 11:52:02 MRI, knee, w/o contrast - MRI LEFT KNEE RULE OUT LATERAL MMT 2024 025 [facility] ([facility]), [address], [place], [address], 01/20/2025 14:38:54 Medication Orders None recorded. Patient TargetsNo targets recorded. Patient InstructionsNo instructions recorded. Reason for Referral None Reported. Results Created Date Observation Date Name Description Value Unit Range Abnormal Flag Note LastModifiedBy Organization Detail LastModifiedTime 09/02/19 25 09/02/2024 XR, knee, 4 or more view [email or web address] ?Encry pted=s hAaTro YD8dLq bEUv6g %2BXZw aYqtaq 0bqfl% 2Fg9IQ a4ajBk vP9nXo QUaueC m3YtLR FvZlgJ JJ8mAn HZtai3 7m4269 AC0Kqb X2EV6C mKiQtr MwF INTERFACE [facility] [address], [place], [address], 09/02/2024 13:34:17 09/02/19 25 09/02/2024 XR, knee, 4 or more view [email or web address] ?Encry pted=s hAaTro YD8dLq bEUv6g %2BXZw aYqtaq 0bqfl% 2Fg9IQ a4ajBk vP9nXo QUaueC m3YtLR FvZlg JJ8mAn HZtai3 8w3725 AC0Kqb X2EV6C mKiQtr MwF INTERFACE [facility] [address] [facility] [address], [place], [address], 09/02/2024 13:34:19 10/14/19 25 10/11/2024 MRI, hip, w/o contr ast No observ ation record ed. [email or web address] [facility] [place] [address], [place], [address], 10/15/2024 12:32:21 01/15/20 25 01/14/2025 XR, knee, 4 or more view [email or web address] ?Encry pted=s hAaTro YD8dLq bEUv6g %2BXZw aYqtaq 0bqfl% 2Fg9IQ a4ajBk vP9nXo QUaueC m3YtLR FvZlgJ JJ8mAn HZtai3 5p8739 AC0Kla XyBVKS uKiQtr MwF INTERFACE [facility] [address], [place], [address], 01/14/2025 08:47:08 01/15/20 25 01/14/2025 XR, knee, 4 or more view [email or web address] ?Encry pted=s hAaTro YD8dLq bEUv6g %2BXZw aYqtaq 0bqfl% 2Fg9IQ a4ajBk vP9nXo QUaueC m3YtLR FvZlgJ JJ8mAn HZtai3 5x4152 AC0Kla XyBVKS uKiQtr MwF INTERFACE [facility] [address], [place], [address], 01/14/2025 08:47:10 01/21/20 25 01/18/2025 MRI, knee, w/o contr ast [facility] Access ion Number : [id number] Patien t Name: Ailyn Randall Medica triny Record Number : [id number] Date of : 1960 Date of Exam: 2024 Referr ing Physic hillary: Amado Hernandez [address] [facility], [place] [address] Exam: MR Knee (C-) CPT 01011 - Left Room Descri ption: [facility] 3.0T MRI left knee Histor y: Pain Findin gs: Large comple x degene rative type tear involv ing the body and bobbin sorter ior horn of the medial menisc us. The tear has horizo ntal and radial compon ents. This includ es a comple te radial compon ent at the bobbin sorter ior horn - root juncti on. The body of the medial menisc us is sublux ed into the medial gutter Diffus e absenc e of weight bearin g surfac e cartil age in the medial compar tment. Small margin al osteop hytes in the medial compar tment Mild degene rative free edge radial tearin g with mild trunca tion of the body and bobbin sorter ior horn of the latera l menisc us. Mild thinni ng and irregu larity within bobbin sorter ior weight bearin g surfac e cartil age of the latera l compar tment. The ACL and PCL are intact The MCL is intact The LCL comple x includ ing the biceps femori s, poplit eus and fibula r collat eral ligame nts are intact The medial and latera l patell ar retina cula are intact . Chondr al fissur ing is noted within the trochl ear groove . Small patell ofemor al osteop hytes The extens or mechan ism is intact Gonzalez' s cyst measur es up to 1.6 cm AP by 4 cm cranio caudal . Modera te size knee joint effusi on. Impres olimpia: Large comple x degene rative type tear involv ing the body and bobbin sorter ior horn of the medial menisc us. Advanc ed medial compar tment chondr omalac ia. Mild degene rative free edge radial tearin g with mild trunca tion of the body and bobbin sorter ior horn of the latera l menisc us. Mild latera l and patell ofemor al compar tment chondr omalac ia. Gonzalez' s cyst. Modera te knee joint effusi on. Electr onical ly Signed By: Hira Sam MD [email or web address] [facility] ([facility]) [address], [place], [address], 01/21/2025 14:35:40 Result Notes Documentation Provider Name and Address Organization Details Recorded Time Xr, Knee, 4 Or More View : [email or web address]? Encrypted=tlEeXiaOO2cKvmH Uv6g%2KZJkjUvojm0txar%2Fg 4SUs3gmCqkR4qNiABleoAo6Ko RGTnXrmAIN6bPxOQtcs02p130 4GD0LruSpCLGDoWvKdiHaK Not Available [facility] 01/14/2025 08:47:09 Xr, Knee, 4 Or More View : [email or web address] Encrypted=iqSjJnfJR4xHlzD Uv6g%2KXSvgIdepf9kjaj%2Fg 6UPl2xmYbbP7hQnNIkgjOi7Qp VQFxJfgDWC1sPwSCeaf13r369 8HK7FbxEzIRQKnArItgJqN Not Available [facility] 01/14/2025 08:47:11 Mri, Knee, W/o Contrast : [facility] Accession Number: [id number] Patient Name: Yeimy Randall Date of : 1960 Date of Exam: 01-18-2025 Referring Physician: Mable Hernandez [address] [place] [address] Exam: MR Knee (C-) CPT 89467 - Left Room Description: [facility] 3.0T MRI left knee History: Pain Findings: Large complex degenerative type tear involving the body and posterior horn of the medial meniscus. The tear has horizontal and radial components. This includes a complete radial component at the posterior horn - root junction. The body of the medial meniscus is subluxed into the medial gutter Diffuse absence of weightbearing surface cartilage in the medial compartment. Small marginal osteophytes in the medial compartment Mild degenerative free edge radial tearing with mild truncation of the body and posterior horn of the lateral meniscus. Mild thinning and irregularity within posterior weightbearing surface cartilage of the lateral compartment. The ACL and PCL are intact The MCL is intact The LCL complex including the biceps femoris, popliteus and fibular collateral ligaments are intact The medial and lateral patellar retinacula are intact. Chondral fissuring is noted within the trochlear groove. Small patellofemoral osteophytes The extensor mechanism is intact Gonzalez's cyst measures up to 1.6 cm AP by 4 cm craniocaudal. Moderate size knee joint effusion. Impression: Large complex degenerative type tear involving the body and posterior horn of the medial meniscus. Advanced medial compartment chondromalacia. Mild degenerative free edge radial tearing with mild truncation of the body and posterior horn of the lateral meniscus. Mild lateral and patellofemoral compartment chondromalacia. Gonzalez's cyst. Moderate knee joint effusion. Electronically Signed By: Adrien Hernandez PA-C [address], [place], [address], [facility] 01/21/2025 14:35:40 Problems Name Problem SNOMED Code Status Onset Date Resolution Date Notes Provider Name and Address Organization Details Recorded Time No complaints 272805251 Active Status : 'A'; Not Available [facility] 4 09:21:00 Osteoarthr itis of right knee joint 2839285082889 00 Active 2023 Tawny Cabral PA-C [address], [place], [address] , [facility] 4 19:20:04 Trochanter ic bursitis of right hip 4592677460583 00 Active 2023 Tawny Cabral PA-C [address], [place], [address] , [facility] 4 19:20:05 Pain of bilateral knee regions 8827661763181 02 Active 2024 TESHA josé [facility] 5 13:23:46 Osteoarthr itis of left knee joint 9427670635312 09 Active 2024 Tawny Cabral PA-C [address], [place], [address] , [facility] 5 14:22:22 Primary gonarthros is, bilateral 780706259 Active 2024 Tawny Cabral PA-C [address], [place], [address] , [facility] 5 14:32:49 Bilateral osteoarthr itis of knees 1479871927241 07 Active 2024 KAYLMAYNOR L'HEUREUX [facility] 5 14:44:29 Acute tear of lateral meniscus of left knee 0522983058359 9105 Active 2024 [facility] 5 09:36:55 Acute tear of medial meniscus of left knee 5900369975739 9107 Active 2024 [facility] 09:37:22 Problem Notes None recorded. Procedures Surgical History Date Name Laterality Status Provider Name and Address Organization Details Recorded Time 02/14/20 25 Sports Knee Asp & Inj completed Gagandeep Trejo MD [address], [place], [address], [facility] 02/13/2025 16:46:32 12/21/19 25 Knee Kenalog 40 1cc Injection, Bilateral completed Tawny Cabral PA-C [address], [place], [address], [facility] 12/20/2024 14:32:37 11/16/19 25 Spine Surgery [facility] 02/13/2025 15:56:58 10/04/19 13967 Therapeutic Exercise (1:1) completed Veena Romero, ARBEN [address], [place], [address], [facility] 10/03/2024 14:34:31 10/01/19 32040 Therapeutic Exercise (1:1) cancelled Pat Gan PT [address], [place], [address], [facility] 09/30/2024 08:15:22 09/20/19 64672 Therapeutic Exercise (1:1) completed Veena Romero, BIRDCAGE ASSEMBLER [address], [place], [address], [facility] 09/19/2024 15:07:59 09/09/19 00996 Therapeutic Exercise (1:1) completed Pat Gan, PT [address], [place], [address], [facility] 09/12/2024 08:45:43 09/09/19 74631: Manual therapy completed Pat Gan, PT [address], [place], [address], [facility] 09/12/2024 08:45:53 09/05/19 43320 Therapeutic Exercise (1:1) completed Veena Romero, BIRDCAGE ASSEMBLER [address], [place], [address], [facility] 09/05/2024 15:14:08 09/02/19 83176 Therapeutic Exercise (1:1) completed Veena Romero, BIRDCAGE ASSEMBLER [address], [place], [address], [facility] 09/02/2024 15:56:37 08/26/19 12905 Therapeutic Exercise (1:1) completed Pat Gan, PT [address], [place], [address], [facility] 08/27/2024 06:44:07 08/21/19 95433 Therapeutic Exercise (1:1) completed Pat Gan, PT [address], [place], [address], [facility] 2024 00:12:25 08/21/19 35404: Low complexity PT Eval completed Pat Gan, PT [address], [place], [address], [facility] 2024 00:12:29 08/21/19 25 G8417 BMI Above Upper Parameters, F/U Documented completed Pat Gan, PT [address], [place], [address], [facility] 2024 00:17:14 08/21/19 25 G8427 Current Medication Documented completed Pat Gan, PT [address], [place], [address], [facility] 2024 00:17:19 08/16/19 25 Sports Knee 4&1 completed Tawnykristel Cabral PA-C [address], [place], [address], [facility] 08/16/2024 09:32:59 08/16/19 25 JZHip Inj completed Tawny Cabral PA-C [address], [place], [address], [facility] 08/16/2024 09:33:14 04/26/20 24 Sports Knee 4&1 completed Tawny Cabral PA-C [address], [place], [address], [facility] 04/26/2024 09:33:58 04/26/20 24 Hip Kenalog 1cc Injection, L/R completed Tawny Cabral PA-C [address], [place], [address], [facility] 04/26/2024 09:33:55 01/29/20 24 Sports Knee 4&1 completed Tawny Cabral PA-C [address], [place], [address], [facility] 01/28/2024 19:19:25 01/29/20 24 Hip Kenalog 1cc Injection, L/R completed Tawny Cabral PA-C [address], [place], [address], [facility] 01/28/2024 19:19:21 Gastrointestinal Surgery completed ANGELINE OLIVEROS [facility] 02/13/2025 15:56:58 Imaging Results None recorded. Procedure Notes None recorded. Medical Equipment None Reported. Allergies Allergen ID Allergen Name Allergen Category Reaction Reaction Severity Criticality Documentation Date Start Date Code Code System Note Provider Name and Address Organization Details Recorded Time 815450 Grass pollen (substanc e) environme nt,medica tion Not available Not available Not available 09/18/20232021 37459 7009 SNOMED Not Available [facility] 4 15:13:30 422894 cat dander environme nt Not available Not available Not available 01/29/2024 TESHA WILLIS arnav [place] - [facility] 4 13:11:14 497714 tree and shrub pollen environme nt,medica tion Not available Not available Not available 02/14/2025 ANGELINE OLIVEROS arnav [place] - [facility] 5 09:01:43 Medications Name Sig Start Date Stop Date Status Note LastModified by Organization Details LastModified Time prednisone 10 mg tablet TAKE 4 TABLETS BY MOUTH DAILY FOR 5 DAYS. 02/13 completed Not Available Not Available Not Available tizanidine 4 mg tablet TAKE 1 TABLET BY MOUTH THREE TIMES A DAY 02/13 completed Not Available Not Available Not Available venlafaxine 25 mg tablet TAKE 1 TABLET [...] completed Not Available Not Available Not Available triamcinolo ne acetonide 0.1 % topical cream APPLY TO AFFECTED AREA OF ITCH ON BACK IN THE MORNING AND EVENING FOR ECZEMA NEEDED 02/13 completed Not Available Not Available Not Available imiquimod 5 % topical cream packet APPLY TWICE A WEEK AT BED TIME X16 WEEKS 02/13 completed Not Available Not Available Not Available benzonatate 100 mg capsule TAKE 1 TO 2 CAPSULES BY MOUTH 3 TIMES A DAY NEEDED FOR COUGH 02/13 completed Not Available Not Available Not Available polymyxin B sulfate 10,000 unit-trimet hoprim [...] completed Not Available Not Available Not Available albuterol sulfate HFA 90 mcg/actuati on aerosol inhaler INHALE 1-2 PUFFS INTO THE LUNGS EVERY 4 HOURS NEEDED FOR WHEEZING OR SHORTNESS OF BREATH/DY SPNEA. 02/13 completed Not Available Not Available Not Available loratadine 10 mg tablet TAKE 1 TABLET ORALLY DAILY 02/13 completed Not Available Not Available Not Available amoxicillin 875 mg-potassiu m clavulanate 125 mg tablet TAKE 1 TABLET BY MOUTH EVERY 12 HOURS FOR 7 DAYS 01/28 completed Not Available Not Available Not Available amoxicillin 500 mg-potassiu m clavulanate 125 mg tablet TAKE 1 TABLET BY MOUTH EVERY 8 HOURS 02/13 completed Not Available Not Available Not Available oxycodone 5 mg tablet TAKE 1 TAB BY MOUTH EVERY 6 HOURS, FOR 7 DAYS NEEDED FOR PAIN , MODERATE 02/13 completed Not Available Not Available Not Available sulfasalazi ne sulfaSALA zine 500MG Tablet [...] Not Available Not Available Not Available Vitals Date Recorded Body height Body mass index (BMI) Body weight Provider Name and Address Organization Details Last Updated DateTime 12/20/2024 167.64 cm 26.6 kg/m2 84825.74 g KAYLIA L'HEUREUX [place] - [facility] 12/20/2024 14:06:05 Date Recorded Body height Body mass index (BMI) Body weight Provider Name and Address Organization Details Last Updated DateTime 01/14/2025 167.64 cm 26.6 kg/m2 04889.74 g Julianneliviahan Mckenzie [facility] 01/14/2025 08:37:09 Date Recorded Body height Body mass index (BMI) Body weight Provider Name and Address Organization Details Last Updated DateTime 02/13/2025 167.64 cm 26.6 kg/m2 71119.74 g ANGELINE OLIVEROS [facility] 02/13/2025 15:57:10 Social History Question Answer Notes LastModified by Organizat ion Details LastModified Time Tobacco Smoking Status Former Smoker ANGELINE OLIVEROS [facility] 02/13/2025 15:56:55 When Did You Quit Smoking? 16+yearssinc elastcigaret te [email or web address] Information not available 02/13/2025 Have You Ever Been Counseled For Unhealthy Alcohol Use? No Information not available 01/29/2024 What Is Your Relationship Status? Information not available 01/29/2024 How Many Years Have You Smoked Tobacco? 10 Information not available 02/13/2025 Sex: Unknown Functional Status Question Answer Note LastModified by Organizat ion Details LastModified Time How many times per week do you consume alcohol? Less than 1 time per week Information not available 01/29/2024 Do you use any illicit or recreational drugs? No Information not available 01/29/2024 Do you or have you ever used any other forms of tobacco or nicotine? No Information not available 01/29/2024 What is your level of alcohol consumption? Occasional Information not available 01/29/2024 Do you or have you ever used e-cigarettes or vape? Never used electronic cigarettes [email or web address] Information not available 02/13/2025 Mental Status None recorded. Family History Nothing Reported. Medical History Condition Response Allergies/Hayfever Y Coronary Artery Disease N Anxiety/Depression N Breathing or lung disorders Y Emphysema N Nerve Disorders N Thyroid Problems N COPD N Pacemaker N Anemia N Kidney/Bladder Problems N Vascular Disease N Heart Trouble N Heart Attack (PR) N Gastrointestinal Disease N Cholesterol N Diabetes N Autoimmune disease N Bleeding Disorder Y Orthotics N Arthritis Y Seizures/Epilepsy N Blood Clot N AIDS/HIV N Congestive Heart Failure (CHF) N Acid Reflux (GERD) Y Cancer Y Stroke N Asthma Y Circulation Problems N Peripheral Vascular Disease N Sleep Apnea N Hepatitis N Heart Disease N Rheumatoid Arthritis N Arrhythmia N Pulmonary Embolism N Headaches N Fibromyalgia N Hypertension Y Osteoporosis N Gynecological HistoryNo gynecological history recorded. Obstetrics History GPAL:G 0 P 0 0 0 0 Past Encounters Encounter ID Performer Location Encounter Start Date Encounter Closed Date Diagnosis/Indication Diagnosis SNOMED-CT Code Diagnosis ICD10 Code Diagnosis IMO Codes Diagnosis Note [id number] Tawny Cabral PA-C [facility] [address] [place] [address] 01/29/2024 13:05:01 02/22/2024 14:41:13 Osteoarthritis of right knee joint 1924719924 44034 M17.11 Nature of patient's diagnosis and imaging was reviewed in detail with the patient. She responded very favorably to previous cortisone injections in both the knee and the trochanter ic bursa. We will therefore repeat injections today. We will have her follow-up in 3 months for repeat injections versus clinical reevaluati on. All questions and concerns were addressed and answered today. Encouraged continued low-impact exercise program and diligent home exercise PT exercises. All questions and concerns were addressed and answered. Trochanter ic bursitis of right hip 9942475767 38672 M70.61 [id number] Tawny Cabral PA-C [facility] [address] [place] [address] 04/26/2024 08:48:05 05/22/2024 14:17:30 Osteoarthritis of right knee joint 9451371214 30134 M17.11 Nature of patient's diagnosis and imaging was reviewed in detail with the patient. She responded very favorably to previous cortisone injections in both the knee and the trochanter ic bursa. We will therefore repeat injections today. We will have her follow-up in 3 months for repeat injections versus clinical reevaluati on. All questions and concerns were addressed and answered today. Encouraged continued low-impact exercise program and diligent home exercise PT exercises. All questions and concerns were addressed and answered. Trochanter ic bursitis of right hip 6029615519 36872 M70.61 [id number] Tawny Cabral PA-C [facility] [address] [place] [address] 08/16/2024 09:08:20 08/30/2024 10:46:53 Osteoarthritis of right knee joint 1731525688 21208 M17.11 Nature of the diagnosis discussed with [...] ty. Trochanter ic bursitis of right hip 8753981289 32661 M70.61 [id number] aPt Gan, PT [facility] [address] [place] [address] 08/21/2024 11:36:25 08/21/2024 13:06:21 Trochanteric bursitis of right hip 0691927713 49148 M70.61 [id number] Pat Gan, PT [facility] [address] [place] [address] 08/26/2024 16:11:17 08/26/2024 17:18:30 Trochanteric bursitis of right hip 7287258746 03501 M70.61 [id number] Tawny Cabral PA-C [facility] [address] [place] [address] 09/02/2024 13:15:16 09/19/2024 12:21:53 Pain of bilateral knee regions 6811297388 28114 M25.561 M25.562 [id number] Osteoarthr itis of left knee joint 6096538401 44534 M17.12 [id number] Reviewed patient's imaging and exam findings in detail with her today. Discussed that she does have some mild medial compartmen t arthritis in the left knee but I feel that her symptoms were most likely compensato ry in nature. They have since resolved after her recent right knee and hip cortisone injections . Therefore it was likely that she was just overloadin g her left side to offload her right knee. Could consider cortisone injection if symptoms return in the future. She is not having any mechanical symptoms to suggest meniscus pathology. Therefore we will hold off on any further treatment for now. Continue low impact exercise program including swimming biking and rowing. Continue physical therapy. All questions and concerns were addressed and answered [id number] Veena Romero, BIRDCAGE ASSEMBLER [facility] [address] [place] [address] 09/02/2024 15:11:41 09/02/2024 16:17:28 Trochanteric bursitis of right hip 3082661597 44679 M70.61 [id number] Veena Romero [employer]BL[employer] [facility] [address] [facility], [place] [address] 09/05/2024 14:23:33 09/05/2024 15:40:32 Trochanteric bursitis of right hip [id number] M70.61 [id number] Pat Gan, PT [facility] [place] [address] [place] [address] 09/09/2024 16:15:30 09/09/2024 17:11:29 Trochanteric bursitis of right hip [id number] M70.61 [id number] Veena Romero BIRDCAGE ASSEMBLER [facility] [place] [address] [place] [address] 09/19/2024 14:23:04 09/19/2024 15:27:53 Trochanteric bursitis of right hip [id number] M70.61 [id number] Veena Romero BIRDCAGE ASSEMBLER [facility] [place] [address] [place] [address] 10/03/2024 13:50:48 10/03/2024 15:04:10 Trochanteric bursitis of right hip [id number] 88601 M70.61 [id number] Tawny Cabral PA-C [facility] on Clinical [address] [facility], [place], [place] [address] 12/20/2024 13:42:53 01/03/2025 09:59:54 Primary gonarthrosis, bilateral [id number] M17.0 [id number] Nature of the diagnosis discussed with the [...] management options versus total joint arthroplas ty. [id number] GRAEME PelayoA - [place] [address] [place] [address] 01/14/2025 08:33:54 01/28/2025 11:51:38 Pain of knee region [id number] M25.562 G89.29 [id number] Injury of articular cartilage of left knee joint [id number] S83.8X2A [id number] MD [facility] [place] [address] [place] [address] 02/13/2025 15:39:42 02/24/2025 14:29:03 Osteoarthritis of left knee joint [id number] 96772 M17.12 [id number] Health Concerns Section Related Observation LastModified by Organization Detai ls LastModified Time None Recorded Concern Status LastModified by Organization Details LastModified Time None Recorded Advance Directives Directive None Recorded Payers Insurance Date Sequence Insurance Name Policy Number Policy Ruffin Covered Member ID Ruffin Member ID Guarantor Name 02/13/2025 [place] [employer] Yeimy Randall [id number] Yeimy Randall 02/13/2025 1 [place] Yeimy Randall [id number] Yeimy Randall 02/13/2025 2 [employer] Yeimy Randall [id number] Yeimy Randall 02/13/2025 1 [place]: [facility] Yeimy Randall [id number] Yeimy Randall 02/13/2025 [place]: [facility] Yeimy Randall [id number] Yeimy Randall 02/24/2025 2 [employer] (MEDICARE SUPPLEMENT) [id number] Yeimy Randall [id number] Yeimy Randall 02/13/2025 1 [facility] [id number] Yeimy Randall [id number] Yeimy Randall Notes Date Note Type Note Provider Name and Address Organization Details Recorded Time 09/19/2024 text/html Patient reports she has been doing her HEP to toleration. She was away with the grand kids last week and had significant difficulty with lifting and holding them, climbing the stairs and feels her leg is very weak. Her lumbar surgery was pushed out to November and feels she would like more imaging on the hip prior to surgery to rule out any issues not radicular. Veena Romero, BIRDCAGE ASSEMBLER [address], [place], [address], [facility] 09/19/2024 15:08:30 10/03/2024 text/html Patient reports the increase in sets after last session was too much. She messaged the MD about her hip pain and requested an MRI that is scheduled on Wednesday 10/11 with a followup to the MD to be scheduled after. She is also scheduled for lumbar surgery in November. Veena Romero, BIRDCAGE ASSEMBLER [address], [place], [address], [facility] 10/03/2024 14:52:05 12/20/2024 text/html ROS as noted in the HPI I am seeing the patient under the general supervision of Dr. Cheek who was available but who did not see the patient. CC:Acute exacerbation of knee pain HPI:Patient presents today for acute exacerbation of Bilateral knee pain. Is known to have arthritis treated conservatively with intermittent cortisone injections in the past as needed. Reports recent acute exacerbation of symptoms including pain, swelling and difficulty participating in ADL's. No new fall, trauma or injury reported. Last injection(s) were July 2024. Tawny Cabral PA-C [address], [place], [address], [facility] 12/20/2024 14:33:04 01/14/2025 text/html I am seeing the patient today under the supervision of Dr. Herndon who was available but who did not see the patient. HPI: Patient presents today [facility] regarding their left knee. They have had difficulty up and down stairs sitting standing. Problems ambulating. Tnhw-tyd-arckorg medications are helping somewhat but not significantly. PATIENT WAS KNEELING A COUPLE DAYS AGO AND TWISTED, HAS SINCE HAD PAIN AND CATCHING AT LATERAL ASPECT OF THE KNEE Past family, medical, social history and review of systems has been reviewed, updated and is located in the patient s chart. Examination: The patient is well appearing and in no apparent distress. Alert and oriented x3. Gait is symmetric. Examination of the left knee reveals no evidence of any edema, erythema, or warmth. No Deformity. Range of motion of the knee limited with mild discomfort at the end ranges. Mild effusion. Does have some tenderness to palpation about the joint line. POSITIVE LATERAL Servando s . Calf is supple and nontender. Neurovascularly intact distally. 4 X-ray views of the knee were independently reviewed today showed narrowing of the medial compartment of the knee. NO FRACTURES Impression: left Knee pain, CONCERNING FOR MENISCUS TEAR Plan: We discussed the role of conservative management including medications, physical therapy, injection and bracing. WE WILL ORDER AN MRI TO RULE OUT MENISCUS TEAR GIVEN POSITIVE EXAM FINDINGS AND MECHANISM OF INJURY. PATIENT HAD CORTISONE INJECTION A MONTH AGO, AND NOW HAS NO RELIEF FROM IT. I WILL CALL WITH RESULTS TO DISCUSS SURGICAL VERSUS NONSURGICAL MANAGEMENT WHEN ABLE. PATIENT IS GOING ON VACATION NEXT WEEK ON MONDAY, HOPE TO HAVE RESULTS ON MONDAY PRIOR TO HER LEAVING. QUESTIONS ANSWERED Mable Hernandez PA-C [address], [place], [address], [facility] 01/14/2025 09:18:59 02/13/2025 text/html HPI: Patient presents today as a follow-up from her prior [facility] WALK IN regarding their left knee. They have had difficulty up and down stairs sitting standing. Problems ambulating. Dqon-ryu-bqnftba medications are helping somewhat but not significantly. PATIENT WAS KNEELING A SEVERAL WEEKS AGO AND TWISTED, HAS SINCE HAD PAIN AND CATCHING AT LATERAL ASPECT OF THE KNEE Past family, medical, social history and review of systems has been reviewed, updated and is located in the patient s chart. Examination: The patient is well appearing and in no apparent distress. Alert and oriented x3. Gait is symmetric. Examination of the left knee reveals no evidence of any edema, erythema, or warmth. No Deformity. Range of motion of the knee limited with mild discomfort at the end ranges. Mild effusion. Does have some tenderness to palpation about the joint line. POSITIVE LATERAL Servando s . Calf is supple and nontender. Neurovascularly intact distally Right kneeROM FULL, intact ACL,PCL,MCL,LCLno evidence for instabilityNo medial meniscal pain to palaptionno lateral meniscal pain to palpationnegative Servando's Maneuver to both compartmentsNo effusionNo retropatellar crepitancenegative patella grindNo skin lesions, varicosities, swelling, no calf tenderness HEENT- unremarkableHeart -RRR without murmur's, rubs, gallopsAbdomen- soft non-tender, non distended, positive bowel signsLungs clear bilaterallyno skin lesionsintact light touch, distal pulses, and reflex 4 X-ray views of the knee were independently reviewed today showed narrowing of the medial compartment of the knee. NO FRACTURES MRI scan recently obtained of her left knee independently reviewed today complex tear posterior horn medial meniscus. She has moderate medial compartment space chondral injury and degenerative osteoarthropathy. Questionable small free edge tear body segment lateral meniscus. Impression: left Knee pain, positive medial Servando's maneuver but in the face of mild to moderate medial compartment space osteoarthropathy. Questionable small lateral meniscal tear nonsymptomatic at this time. We reviewed the MRI findings in detail. Discussed potential treatment options available both nonoperative, repeat aspiration and injection, surgery. We elected eventually to repeat an aspiration and injection and if inadequate symptom relief would move forward with scheduling a left knee diagnostic and operative arthroscopy for partial medial meniscectomy. Gagandeep Trejo MD [address], [place], [address], [facility] [place] 02/13/2025 16:46:48 OBGyn Episode No OBEpisode recorded.
--- OUTSIDE RECORDS SUMMARY | 2025-06-18 12:27 | XMS_ITS | Encounter Summary ---
Author Organization [facility] Address [address] [facility] [address] [place] [address] Phone Care Team Providers Care Maintenance Department Manager Name Role Phone Lydia Johnson Primary Care Provider [phone] Marlene Gonzalez MD Primary Care Provider [phone] Renetta Olmstead Primary Care Provider [phone] Encounter Details Date Type Department Care Team (Late st Contact Info) Description 01/29/2021 Procedure Pass [facility], [address] [address] Social History Tobacco Use Types Packs/Day Years [...] on filedocumented in this encounter Care Teams Maintenance Department Manager Relationship Specialty Start Date End Date Lydia Johnson PA [address] [place] [address] [email or web address] PCP - General Unknown Provider Specialty 06/26/17 03/01/22 Marlene Gonzalez MD [address] [place] [address] [email or web address] PCP - General Internal Medicine 03/02/22 09/29/24 Renetta Olmstead PA [address] [place] [address] PCP - General Physician Fire Fighter [employer] 09/30/24 documented as of this encounter Additional Source Comments The information contained in this document represents components of the legal health record. It is not the complete legal health record.[facility]
--- OUTSIDE RECORDS SUMMARY | 2025-06-18 12:27 | XMS_ITS | Encounter Summary ---
Author Organization [facility] Address [address] [facility] [address] [place] [address] Phone Care Team Providers Care City Distribution Clerk Name Role Phone Lydia Johnson Primary Care Provider [phone] Marlene Gonzalez MD Primary Care Provider [phone] Renetta Olmstead Primary Care Provider [phone] Encounter Details Date Type Department Care Team (Late st Contact Info) Description 02/15/2021 Procedure Pass Non-Invasive Cardiology [address] [place] [address] Social History Tobacco Use Types Packs/Day Years [...] on filedocumented in this encounter Care Teams City Distribution Clerk Relationship Specialty Start Date End Date Lydia Johnson PA [address] [place] [address] [email or web address] PCP - General Unknown Provider Specialty 06/26/17 03/01/22 Marlene Gonzalez MD [address] [place] [address] [email or web address] PCP - General Internal Medicine 03/02/22 09/29/24 Renetta Olmstead PA [address] [place] [address] PCP - General Physician Deckhand 09/30/24 documented as of this encounter Additional Source Comments The information contained in this document represents components of the legal health record. It is not the complete legal health record.[facility]
--- OUTSIDE RECORDS SUMMARY | 2025-06-18 12:27 | XMS_ITS | Encounter Summary ---
Author Organization [facility] Address [address] [facility] [address] [place] [address] Phone Care Team Providers Care Professor Of Business Administration Name Role Phone Lydia Johnson Primary Care Provider [phone] Marlene Gonzalez MD Primary Care Provider [phone] Renetta Olmstead Primary Care Provider [phone] Encounter Details Date Type Department Care Team (Late st Contact Info) Description 11/30/2020 Procedure Pass [facility], [address] [address] Social History Tobacco Use Types Packs/Day Years [...] on filedocumented in this encounter Care Teams Professor Of Business Administration Relationship Specialty Start Date End Date Lydia Johnson PA [address] [place] [address] [email or web address] PCP - General Unknown Provider Specialty 06/26/17 03/01/22 Marlene Gonzalez MD [address] [place] [address] [email or web address] PCP - General Internal Medicine 03/02/22 09/29/24 Renetta Olmstead PA [address] [place] [address] PCP - General Physician Overhauler 09/30/24 documented as of this encounter Additional Source Comments The information contained in this document represents components of the legal health record. It is not the complete legal health record.[facility]
--- OUTSIDE RECORDS SUMMARY | 2025-06-18 12:27 | XMS_ITS | Encounter Summary ---
Author Organization [facility] Address [address] [facility] [address] [place] [address] Phone Care Team Providers Care Patient Support Associate Name Role Phone Lydia Johnson Primary Care Provider [phone] Marlene Gonzalez MD Primary Care Provider Renetta Olmstead Primary Care Provider [phone] Encounter Details Date Type Department Care Team (Late st Contact Info) Description 08/03/2020 Procedure Pass [facility] Endoscopy Admitting Dept Virtual Department [address] [place] [address] Social History Tobacco Use Types Packs/Day Years [...] Diagnoses Not on filedocumented in this encounter Additional Health Concerns Infection Onset Date Last Indicated Resolved Time C. diff 10/07/2020 10/07/2020 11/06/2020 1:23 AM EDT documented as of this encounter Care Teams Patient Support Associate Relationship Specialty Start Date End Date Lydia Johnson PA [address] [place] [address] [email or web address] PCP - General Unknown Provider Specialty 06/26/17 03/01/22 Marlene Gonzalez MD [address] [place] [email or web address] PCP - General Internal Medicine 03/02/22 09/29/24 Renetta Olmstead PA [address] [place] [address] PCP - General Physician Frit Maker 09/30/24 documented as of this encounter Additional Source Comments The information contained in this document represents components of the legal health record. It is not the complete legal health record.[facility]
--- OUTSIDE RECORDS SUMMARY | 2025-06-18 12:27 | XMS_ITS | Encounter Summary ---
Author Organization [facility] Address [address] [facility] [address] [place] [address] Phone Care Team Providers Care Health Economist Name Role Phone Lydia Johnson Primary Care Provider [phone] Marlene Gonzalez MD Primary Care Provider Renetta Olmstead Primary Care Provider [phone] Encounter Details Date Type Department Care Team (Latest Contact Info) Description 2017 Transcribe Orders [facility] Phleb Main [address] [place] [address] Lydia Johnson PA [address] [place] [address] [email or web address] Essential hypertension, benign (Primary Dx); Synovial cyst of lumbar facet joint Social History Tobacco Use Types Packs/Day Years [...] documented as of this encounter Results * PTT (2017 1:18 PM EST) APTT 31.9 25.1 - 36.5 sec [facility] Comment:APTT response to unf ractionated heparin concentrations between 0.3 and 0.7 IU/mL is typically 54.0-94.0 seconds in uncomplicated cases. The Anti-Xa assay is the preferred method. Blood 2017 1:18 PM EST 2017 1:20 PM EST Lydia Alex [place] LAB BLOOD BKR ORDERABLES Final Result Performing Organization Address City/[facility] Co de Phone Number [address] [address] * PT-INR (2017 1:18 PM EST) PT 12.4 10.2 - 12.9 sec [facility] INR 1.1 0.9 - 1.1 [facility] Comment:Therapeutic range fo r oral Vitamin K antagonists: 2.0-3.5 Blood 2017 1:18 PM EST 2017 1:20 PM EST [facility] [place] LAB BLOOD BKR ORDERABLES Final Result Performing Organization Address [facility] de Phone Number [address] [address] * (ABNORMAL) CBC and differential (2017 1:18 PM EST) WBC 7.62 3.40 - 11.20 K/uL [facility] RBC 4.00 3.80 - 4.80 M/uL [facility] HGB 12.0 12.0 - 15.0 g/dL [facility] HCT 37.6 36.0 - 46.0 % [facility] PLT 294 130 - 400 K/uL [facility] MCV 94.0 79.0 - 98.0 fL [facility] MCH 30.0 27.0 - 34.8 pg [facility] MCHC 31.9 31.5 - 36.0 g/dL [facility] RDW 13.2 10.8 - 14.6 % [facility] MPV 10.3 9.4 - 12.4 fl [facility] NRBC 0.00 /100 WBCs [facility] ABSOLUTE NRBC 0.00 K/uL [facility] DIFF METHOD Auto [facility] NEUTS 61.0 45.30 - 77.70 % [facility] LYMPHS 28.2 12.30 - 39.70 % [facility] MONOS 7.9 4.10 - 12.80 % [facility] EOS 2.2 0 - 7.2 % [facility] BASOS 0.4 0 - 2.80 % [facility] Granulocytes, immature (%) 0.3 0.0 - 0.9 % [facility] ABSOLUTE NEUTS 4.65 1.40 - 7.70 K/uL [facility] ABSOLUTE LYMPHS 2.15 0.60 - 3.20 K/uL [facility] ABSOLUTE MONOS 0.60(H) 0.11 - 0.59 K/uL [facility] ABSOLUTE EOS 0.17 0.01 - 0.50 K/uL [facility] ABSOLUTE BASOS 0.03 0.00 - 0.08 K/uL [facility] Granulocytes, immature 0.02 0.00 - 0.05 K/uL [facility] Blood 2017 1:18 PM EST 2017 1:20 PM EST us Lydia MARINELLI LAB BLOOD BKR ORDERABLES Final Result Performing Organization Address City/State/[facility] Co de Phone Number [address] [address] * Basic metabolic panel (2017 1:18 PM EST) SODIUM 140 133 - 146 mmol/L [facility] CHLORIDE 100 96 - 108 mmol/L [facility] POTASSIUM 3.8 3.3 - 5.1 mmol/L [facility] CO2 28 21 - 35 mmol/L [facility] BUN 13 6 - 19 mg/dL [facility] CREATININE 0.50 0.5 - 1.5 mg/dL [facility] GLUCOSE 95 70 - 99 mg/dL [facility] CALCIUM 9.3 8.4 - 10.3 mg/dL [facility] EGFR >60 >60 mL/min/1.7 3m2 [facility] Comment:Abnormal if <60. If patient is -Citizen Of [place], multiply the result by 1.21. ANION GAP 16 10 - 20 mmol/L [facility] Blood 2017 1:18 PM EST 2017 1:20 PM EST us Lydia MARINELLI LAB BLOOD BKR ORDERABLES Final Result [facility] [address] [place] [address] documented in this encounter Visit Diagnoses Diagnosis Essential hypertension, benign- Primary Synovial cyst of lumbar facet joint documented in this encounter Additional Health Concerns Infection Onset Date Last Indicated Resolved Time C. diff 10/07/2020 10/07/2020 11/06/2020 1:23 AM EDT documented as of this encounter Care Teams Health Economist Relationship Specialty Start Date End Date Lydia Johnson PA [address] [place] [address] [email or web address] PCP - General Unknown Provider Specialty 06/26/17 03/01/22 Marlene Gonzalez MD [address] [place] [address] [email or web address] PCP - General Internal Medicine 03/02/22 09/29/24 Renetta Olmstead PA [address] [place] [address] PCP - General Physician Steam Powerplant Supervisor 09/30/24 documented as of this encounter Additional Source Comments The information contained in this document represents components of the legal health record. It is not the complete legal health record.[facility]
--- OUTSIDE RECORDS SUMMARY | 2025-06-18 12:27 | XMS_ITS | Encounter Summary ---
Author Organization [facility] Address [address] [address] Phone Care Team Providers Care Pro Shop Attendant Name Role Phone Marlene Gonzalez MD Primary Care Provider Lydia Johnson Primary Care Provider [phone] Marlene Gonzalez MD Primary Care Provider Renetta Olmstead Primary Care Provider [phone] Encounter Details Date Type Department Care Team (Late st Contact Info) Description 06/01/2017 Procedure Pass [facility], [address] [address] Social History Tobacco Use Types Packs/Day Years Used Date Smoking Tobacco: Never Assessed Comments Unknown Sex and Gender Information Value Date Recorded Sex Assigned at Female 11/21/2019 11:14 AM EDT Legal Sex Female 9:49 PM EDT Gender Identity Female 11/21/2019 11:14 AM EDT Sexual Orientation Straight 11/21/2019 11 :14 AM EDT documented as of this encounter Last Filed Vital Signs Vital Sign Reading Time Taken Comments Blood Pressure - - Pulse - - Temperature - - Respiratory Rate - - Oxygen Saturation - - Inhaled Oxygen Concentration - - Weight 72.6 kg (160 lb) 06/02/2017 12:48 PM EST Height 170.2 cm (5' 7 ) 06/02/2017 12:48 PM EST Body Mass Index 25.06 06/02/2017 12:48 PM EST documented in this encounter Plan of Treatment Not on file documented as of this encounter Visit Diagnoses Not on filedocumented in this encounter Additional Health Concerns Infection Onset Date Last Indicated Resolved Time C. diff 10/07/2020 10/07/2020 11/06/2020 1:23 AM EDT documented as of this encounter Care Teams Pro Shop Attendant Relationship Specialty Start Date End Date Marlene Gonzalez MD [address] [place] [address] [email or web address] PCP - General Internal Medicine 06/01/17 06/25/17 Lydia Johnson PA [address] [place] [address] [email or web address] PCP - General Unknown Provider Specialty 06/26/17 03/01/22 Marlene Gonzalez MD [address] [place] [address] [email or web address] PCP - General Internal Medicine 03/02/22 09/29/24 Renetta Olmstead PA [address] [place] [id number] PCP - General Physician Upholstery Handler 09/30/24 documented as of this encounter Additional Source Comments The information contained in this document represents components of the legal health record. It is not the complete legal health record.[facility]
--- OUTSIDE RECORDS SUMMARY | 2025-06-18 12:27 | XMS_ITS | Encounter Summary ---
Author Organization [facility] Address [address] [place] [address] Phone Care Team Providers Care Subgrade Roller Operator Name Role Phone Lydia Johnson Primary Care Provider [phone] Marlene Gonzalez MD Primary Care Provider [phone] Renetta Olmstead Primary Care Provider [phone]- [phone] Reason for Referral * MRI/CAT Scan - Closed Specialty Diagnoses / Procedures Referred By Contac t Referred To Contact Radiology Diagnoses Bilateral numbness and tingling of arms and legs White matter disease Procedures MRI Cervical Spine CHG MRI, CERV SPINE COMBO Lyndon Tovar MD Phone: tel: fax: [email or web address] Referral ID Status Reason Start Date Expiration Date Visits Re quested Visits Authorized [id number] Closed 04/02/2021 07/01/2021 1 1 Encounter Details Date Type Department Care Team (Latest Contact Info) Description 04/09/2021 Transcribe Orders Virtual Department [address] [place] [id number] Lyndon Tovar MD [address] [place] [address], [address] [place] [address] [email or web address] Bilateral numbness and tingling of arms and legs (Primary Dx); White matter disease Social History Tobacco Use Types Packs/Day Years [...] documented as of this encounter Results * MRI CERVICAL SPINE (BONE) WITH AND WITHOUT CONTRAST (04/27/2021 8:07 PM EDT) Anatomical Region Laterality Modality C-spine Magnetic Resonan ce 04/28/2021 8:25 AM EDT Impressions 04/28/2021 8:38 AM EDT 1. No evidence of myelitis. 2. Bilateral neuroforaminal narrowing at C5-C6 and C6-C7. This appears moderate-severe at C5-C6 on the left, moderate contralaterally at this level and at C6-C7 on the left. 3. Severe degenerative disc and endplate changes at C6-C7 and, to a slightly lesser extent C5-C6. Narrative 04/28/2021 8:38 AM EDT HISTORY:. Bilateral numbness and paresthesias in the upper and lower extremities. COMPARISON: Cervical spine x-ray 11/05/2020. TECHNIQUE: Exam performed with and without contrast on a 1.5 Lisa high-field MRI scanner. Sagittal T1, T2 and STIR, axial T2* gradient echo and 3-D bright fluid sequences were obtained. FINDINGS: Cervicomedullary junction: No abnormalities demonstrated. Spinal cord: No evidence of spinal cord lesions. No abnormal enhancement. Spinal cord normal in configuration. C2-C3: No significant abnormalities. C3-C4: No significant abnormalities. C4-C5: Minimal broad-based bulging of the disc. No evidence of central canal stenosis or significant neuroforaminal narrowing. C5-C6: Disc space narrowing and degenerative endplate changes similar to 11/05/2020. Small broad-based disc-osteophyte complex and mild thickening of the ligamentum flavum. Narrowing of the central canal without central canal stenosis. Bilateral neuroforaminal narrowing by uncovertebral joint osteophytes and facet arthropathy. Neuroforaminal narrowing appears moderate-severe on the left and moderate on the right. C6-C7: Disc space narrowing and degenerative endplate changes similar to 11/05/2020. Small broad-based disc-osteophyte complex. Narrowing of the central canal without central canal stenosis. Moderate narrowing of the left neuroforamen by uncovertebral joint osteophytes. Mild narrowing of the right neuroforamen. C7-T1: Minimal broad-based bulging disc. No other significant abnormalities. Vertebrae: No subluxations. No suspicious marrow signal abnormalities. Soft tissue: No evidence of paravertebral masses. Procedure Note Corbin Ortiz MD - 04/28/2021 HISTORY:. Bilateral numbness and paresthesias in the upper and lowerextremities. COMPARISON: Cervical spine x-ray 11/05/2020. TECHNIQUE: Exam performed with and without contrast on a 1.5 Teslahigh-field MRI scanner. Sagittal T1, T2 and STIR, axial T2* gradient echoand 3-D bright fluid sequences were obtained. FINDINGS: Cervicomedullary junction: No abnormalities demonstrated. Spinal cord: No evidence of spinal cord lesions. No abnormal enhancement.Spinal cord normal in configuration. C2-C3: No significant abnormalities. C3-C4: No significant abnormalities. C4-C5: Minimal broad-based bulging of the disc. No evidence of centralcanal stenosis or significant neuroforaminal narrowing. C5-C6: Disc space narrowing and degenerative endplate changes similar to11/05/2020. Small broad-based disc-osteophyte complex and mild thickeningof the ligamentum flavum. Narrowing of the central canal without centralcanal stenosis. Bilateral neuroforaminal narrowing by uncovertebral jointosteophytes and facet arthropathy. Neuroforaminal narrowing appearsmoderate-severe on the left and moderate on the right. C6-C7: Disc space narrowing and degenerative endplate changes similar to11/05/2020. Small broad-based disc-osteophyte complex. Narrowing of thecentral canal without central canal stenosis. Moderate narrowing of theleft neuroforamen by uncovertebral joint osteophytes. Mild narrowing ofthe right neuroforamen. C7-T1: Minimal broad-based bulging disc. No other significantabnormalities. Vertebrae: No subluxations. No suspicious marrow signal abnormalities. Soft tissue: No evidence of paravertebral masses. IMPRESSION: 1. No evidence of myelitis. 2. Bilateral neuroforaminal narrowing at C5-C6 and C6-C7. This appearsmoderate- severe at C5-C6 on the left, moderate contralaterally at thislevel and at C6-C7 on the left. 3. Severe degenerative disc and endplate changes at C6-C7 and, to aslightly lesser extent C5-C6. Lyndon Tovar MD IMG MR XSPECIALTY Final Resu lt documented in this encounter Visit Diagnoses Diagnosis Bilateral numbness and tingling of arms and legs- Primary White matter disease Bilateral numbness and tingling of arms and legs White matter disease documented in this encounter Care Teams Subgrade Roller Operator Relationship Specialty Start Date End Date Lydia Johnson PA [address] [place] [phone] [email or web address] PCP - General Unknown Provider Specialty 06/26/17 03/01/22 Marlene Gonzalez MD [address] [place] [address] [email or web address] PCP - General Internal Medicine 03/02/22 09/29/24 Renetta Olmstead PA [address] [place] [address] PCP - General Physician Fire Control System Installer 09/30/24 documented as of this encounter Additional Source Comments The information contained in this document represents components of the legal health record. It is not the complete legal health record.[facility]
--- OUTSIDE RECORDS SUMMARY | 2025-06-18 12:27 | XMS_ITS | Encounter Summary ---
Author Organization [facility] Address [address] [place] [address] Phone Care Team Providers Care Head Boys Golf Coach Name Role Phone Lydia Johnson Primary Care Provider [phone] Marlene Gonzalez MD Primary Care Provider [phone] Renetta Olmstead Primary Care Provider [phone]- [phone] Encounter Details Date Type Department Care Team (Late st Contact Info) Description 04/09/2021 Procedure Pass [facility], [address] [address] Social History Tobacco Use Types Packs/Day Years [...] on filedocumented in this encounter Care Teams Head Boys Golf Coach Relationship Specialty Start Date End Date Lydia Johnson PA [address] [place] [address] [email or web address] PCP - General Unknown Provider Specialty 06/26/17 03/01/22 Marlene Gonzalez MD [address] [place] [address] [email or web address] PCP - General Internal Medicine 03/02/22 09/29/24 Renetta Olmstead PA [address] [place] [address] PCP - General Physician Operations Scheduler 09/30/24 documented as of this encounter Additional Source Comments The information contained in this document represents components of the legal health record. It is not the complete legal health record.[facility]
--- OUTSIDE RECORDS SUMMARY | 2025-06-18 12:27 | XMS_ITS | Encounter Summary ---
Author Organization [facility] Address [address] [place] [address] Phone Care Team Providers Care Wheat And Oats Flake Miller Name Role Phone Lydia Johnson Primary Care Provider [phone] Marlene Gonzalez MD Primary Care Provider [phone] Renetta Olmstead Primary Care Provider [phone]- [phone] Encounter Details Date Type Department Care Team (Late st Contact Info) Description 04/03/2018 Procedure Pass [place] Admitting Dept - Virtual Department [address] [place] [address] Social History Tobacco Use Types Packs/Day Years [...] documented as of this encounter Care Teams Wheat And Oats Flake Miller Relationship Specialty Start Date End Date Lydia Johnson PA [address] [place] [address] [email or web address] PCP - General Unknown Provider Specialty 06/26/17 03/01/22 Marlene Gonzalez MD [address] [place] [address] [email or web address] PCP - General Internal Medicine 03/02/22 09/29/24 Renetta Olmstead PA [address] [place] [phone] PCP - General Physician Assembly Line Worker 09/30/24 documented as of this encounter Additional Source Comments The information contained in this document represents components of the legal health record. It is not the complete legal health record.[facility]
--- OUTSIDE RECORDS SUMMARY | 2025-06-18 12:27 | XMS_ITS | Encounter Summary ---
Author Organization [facility] Address [address] [place] [address] Phone Care Team Providers Care Home Health Scheduler Name Role Phone Lydia Johnson Primary Care Provider Marlene Gonzalez MD Primary Care Provider [phone] Renetta Olmstead Primary Care Provider [phone]- [phone] Encounter Details Date Type Department Care Team (Latest Contact Info) Description 02/16/2021 Transcribe Orders [facility] [address] Floor [place], [place] [id number] Lydia Johnson PA [address] [place] [address] [email or web address] Hypertension, unspecified type (Primary Dx); Dizzinesses Social History Tobacco Use Types Packs/Day Years [...] documented as of this encounter Results * Magnesium (02/16/2021 9:40 AM EDT) MAGNESIUM 2.3 1.6 - 2.6 mg/dL [facility] Blood 02/16/2021 9:40 AM EDT 02/16/2021 9:43 AM EDT us Lydia MARINELLI LAB BLOOD BKR ORDERABLES Final Result [facility] [address] [place] [address] * (ABNORMAL) CBC and differential (02/16/2021 9:40 AM EDT) WBC 6.96 4.00 - 11.00 K/uL [facility] RBC 4.30 3.72 - 5.30 M/uL [facility] HGB 12.4 11.4 - 15.9 g/dL [facility] HCT 39.1 34.2 - 46.8 % [facility] PLT 287 140 - 430 K/uL [facility] MCV 90.9 78.0 - 97.0 fL [facility] MCH 28.8 25.0 - 33.0 pg [facility] MCHC 31.7(L) 32.0 - 36.0 g/dL [facility] RDW 13.2 11.0 - 16.0 % [facility] MPV 10.7 8.4 - 12.8 [facility] NRBC 0.00 0 /100 WBCs [facility] ABSOLUTE NRBC 0.00 0 K/uL [facility] DIFF METHOD Auto [facility] NEUTS 61.7 43.0 - 75.0 % [facility] LYMPHS 29.3 18.2 - 47.4 % [facility] MONOS 6.5 4.00 - 11.00 % [facility] EOS 1.7 0.0 - 8.0 % [facility] BASOS 0.7 0.0 - 2.0 % [facility] Granulocytes, immature (%) 0.1 0.0 - 0.9 % [facility] ABSOLUTE NEUTS 4.29 1.80 - 7.70 K/uL [facility] ABSOLUTE LYMPHS 2.04 1.00 - 3.10 K/uL [facility] ABSOLUTE MONOS 0.45 0.20 - 0.80 K/uL [facility] ABSOLUTE EOS 0.12 0.00 - 0.80 K/uL [facility] ABSOLUTE BASOS 0.05 0.00 - 0.09 K/uL [facility] Granulocytes, immature 0.01 0.00 - 0.05 K/uL [facility] Blood 02/16/2021 9:40 AM EDT 02/16/2021 9:43 AM EDT [facility] LAB BLOOD BKR ORDERABLES Final Result [address] [address] * TSH with reflex (02/16/2021 9:40 AM EDT) TSH 1.18 0.27 - 4.20 uIU/mL [facility] Blood 02/16/2021 9:40 AM EDT 02/16/2021 9:43 AM EDT [facility] LAB BLOOD BKR ORDERABLES Final Result Performing Organization Address [facility]/ZIP Co de Phone Number [address] [address] * Basic metabolic panel (02/16/2021 9:40 AM EDT) SODIUM 140 133 - 146 mmol/L [facility] CHLORIDE 102 96 - 108 mmol/L [facility] POTASSIUM 4.3 3.3 - 5.1 mmol/L [facility] CO2 29 21 - 35 mmol/L [facility] BUN 10 6 - 19 mg/dL [facility] CREATININE 0.50 0.5 - 1.5 mg/dL [facility] GLUCOSE 92 70 - 99 mg/dL [facility] CALCIUM 9.9 8.4 - 10.3 mg/dL [facility] EGFR 104 >59 mL/min/1.7 3m2 [facility] Comment:Estimated glomerular filtration rate calculated using the CKD-EPI equation. ANION GAP 13 10 - 20 mmol/L [facility] Blood 02/16/2021 9:40 AM EDT 02/16/2021 9:43 AM EDT Lydia MARINELLI LAB BLOOD BKR ORDERABLES Final Result [facility] [address] [place] [address] documented in this encounter Visit Diagnoses Diagnosis Hypertension, unspecified type- Primary Dizzinesses documented in this encounter Care Teams Home Health Scheduler Relationship Specialty Start Date End Date Lydia Johnson PA [address] [place] [address] [email or web address] PCP - General Unknown Provider Specialty 06/26/17 03/01/22 Marlene Gonzalez MD [address] [place] [address] PCP - General Internal Medicine 03/02/22 09/29/24 Renetta Olmstead PA [address] [place] [address] PCP - General Physician Patch Setter 09/30/24 documented as of this encounter Additional Source Comments The information contained in this document represents components of the legal health record. It is not the complete legal health record.[facility]
--- OUTSIDE RECORDS SUMMARY | 2025-06-18 12:28 | XMS_ITS | Encounter Summary ---
Author Organization [facility] Address [address] [address] Phone Care Team Providers Care Compensation Director Name Role Phone Lydia Johnson Primary Care Provider [phone] Marlene Gonzalez MD Primary Care Provider Renetta Olmstead Primary Care Provider [phone] Encounter Details Date Type Department Care Team (Late st Contact Info) Description 08/23/2018 Ancillary Orders Virtual Department [address] [place] [address] Lydia Johnson PA [address] [place] [address] [email or web address] Breast screening Social History Tobacco Use Types [...] MAMMOGRAM SCREENING WITH TOMOSYNTHESIS WITH CAD (BILATERAL) (11/21/2018 8:35 AM EDT) Anatomical Region Laterality Modality Breast Left, Breast Right, Breast Bilateral Bila teral Mammography 11/21/2018 8:49 AM EDT Impressions 11/21/2018 8:51 AM EDT No mammographic evidence of malignancy. BI-RADS CATEGORY: 1 - Negative. DENSITY: The breast tissue is heterogeneously dense, an appearance which lowers the sensitivity of mammography. POS - [id number] Narrative 11/21/2018 8:51 AM EDT Standard digital full-field 2-D C view and two-plane tomographic imaging was performed and compared with multiple prior studies, most recently 11/20/2017, with utilization of computer-aided detection. The breast parenchyma is heterogeneously dense, somewhat limiting mammographic sensitivity. The stromal markings are essentially unchanged in overall appearance and distribution. No dominant spiculated mass, suspicious clustered microcalcifications, or focal zone of pathologic skin thickening or retraction are noted to have arisen in the interim. Procedure Note Michelle Guzman MD - 11/21/2018 Standard digital full-field 2-D C view and two-plane tomographic imagingwas performed and compared with multiple prior studies, most [id number]/07/2018, with utilization of computer-aided detection. The breast parenchyma is heterogeneously dense, somewhat limitingmammographic sensitivity. The stromal markings are essentially unchangedin overall appearance and distribution. No dominant spiculated mass,suspicious clustered microcalcifications, or focal zone of pathologic skinthickening or retraction are noted to have arisen in the interim. IMPRESSION: No mammographic evidence of malignancy. BI-RADS CATEGORY: 1 - Negative. DENSITY: The breast tissue is heterogeneously dense, an appearance whichlowers the sensitivity of mammography. POS - [id number] Lydia MARINELLI IMG MG EXAMS Final Result documented in this encounter Visit Diagnoses Diagnosis Breast screening Breast screening, unspecified Breast screening Breast screening, unspecified documented in this encounter Additional Health Concerns Infection Onset Date Last Indicated Resolved Time C. diff 10/07/2020 10/07/2020 11/06/2020 1:23 AM EDT documented as of this encounter Care Teams Compensation Director Relationship Specialty Start Date End Date Lydia Johnson PA [address] [place] [address] [email or web address] PCP - General Unknown Provider Specialty 06/26/17 03/01/22 Marlene Gonzalez MD [address] [place] [address] [email or web address] PCP - General Internal Medicine 03/02/22 09/29/24 Renetta Olmstead PA [address] [place] [address] PCP - General Physician Freelance Digital Project Manager 09/30/24 documented as of this encounter Additional Source Comments The information contained in this document represents components of the legal health record. It is not the complete legal health record.[facility]
--- OUTSIDE RECORDS SUMMARY | 2025-06-18 12:28 | XMS_ITS | Encounter Summary ---
Author Organization [facility] Address [address] [facility] [address] [place] [address] Phone Care Team Providers Care Patternmaker Plastics Name Role Phone Lydia Johnson Primary Care Provider Marlene Gonzalez MD Primary Care Provider Renetta Olmstead Primary Care Provider [phone] Encounter Details Date Type Department Care Team (Latest Contact Info) Description 06/01/2020 Transcribe Orders [facility] [address] [place] [address] Lydia Johnson PA [address] [place] [address] [email or web address] Elevated glucose (Primary Dx) Social History Tobacco Use Types [...] as of this encounter Results * (ABNORMAL) Hemoglobin A1c (06/01/2020 12:14 PM EST) HEMOGLOBIN A1C 5.9(H) 4.3 - 5.8 % [facility] Blood 06/01/2020 12:1 4 PM EST 06/01/2020 12:24 PM EST Lydia MARINELLI LAB BLOOD BKR ORDERABLES Final Result [facility] [address] [place] [address] documented in this encounter Visit Diagnoses Diagnosis Elevated glucose- Primary Other abnormal glucose documented in this encounter Additional Health Concerns Infection Onset Date Last Indicated Resolved Time C. diff 10/07/2020 10/07/2020 11/06/2020 1:23 AM EDT documented as of this encounter Care Teams Patternmaker Plastics Relationship Specialty Start Date End Date Lydia Johnson PA [address] [place] [phone] [email or web address] PCP - General Unknown Provider Specialty 06/26/17 03/01/22 Marlene Gonzalez MD [address] [place] [address] [email or web address] PCP - General Internal Medicine 03/02/22 09/29/24 Renetta Olmstead PA [address] [place] [address] PCP - General Physician Department Operations Manager 09/30/24 documented as of this encounter Additional Source Comments The information contained in this document represents components of the legal health record. It is not the complete legal health record.[facility]
--- OUTSIDE RECORDS SUMMARY | 2025-06-18 12:28 | XMS_ITS | Clinical Summary ---
Author Organization [facility] Address [address] [address] Phone Care Team Providers Care Prize Fighter Name Role Phone Renetta Olmstead Primary Care Provider [phone] Allergies Active Allergy Reactions Criticality Noted Date Comments Aspirin 09/30/2024 Cat's Claw (Uncaria Tomentosa) Unknown 06/16 Grass Pollen Medium 04/03/2018 Medications lisinopril (PRINIVIL,ZESTRI L) 5 MG tablet Take 5 mg by mouth daily. Active cholecalciferol (VITAMIN D3) 1,000 unit tablet Take 1,000 Units by mouth daily. Active BIOTIN ORAL Take 5,000 mcg by mouth. Active levocetirizine (XYZAL) 5 MG tablet TAKE 1 TABLET BY MOUTH EVERY NIGHT IN THE EVENING 1 Active traZODone (DESYREL) 50 MG tablet 1 Active venlafaxine (EFFEXOR) 25 MG tablet 1 Active glucosamine-messi droitin 500-400 mg Cap Take 1 capsule by mouth 3 (three) times a day. Active Lactobacillus acidophilus (PROBIOTIC ORAL) Take by mouth. Active albuterol 90 mcg/actuation inhaler Inhale 1-2 puffs into the lungs every 4 (four) hours as needed for wheezing or shortness of breath/dyspnea . 8 g 5 Active inhaler spacing device (AEROCHAMBER,WALLY ATHERITE) Spcr Inhale 1 each into the lungs every 4 (four) hours as needed (PRN). 1 each 5 Active Active Problems Problem Noted Date Diagnosed Date FH: CAD (coronary artery disease) 12/31/2018 Benign essential hypertension 12/31/2018 Abnormal electrocardiogram 12/31/2018 Resolved Problems Problem Noted Date Diagnosed Date Resolved Date Hormone replacement therapy (HRT) 06/26/2017 05/17/2021 Assessment & Plan (07/16/2019 9:23 AM EST): Counseled on risks of half-way use (increased risk of blood clots, heart disease, breast cancer) - Yeimy prefers to continue therapy, rx refilled. She may try again to taper in the next year. Assessment & Plan (07/06/2018 8:33 AM EST): Discussed trial of taper, reviewed instructions for doing so. Rx refilled. Assessment & Plan (06/26/2017 1:59 PM EST): Risks of HRT reviewed. We discussed increased risk after five years of use and/or increasing age. She will continue for now but will keep risks in mind and consider d/cing in future. Family History Medical History Relation Comments CV disease Father CV disease Maternal Grandfather Breast cancer Maternal Grandmother Stomach cancer Maternal Grandmother Aneurysm Mother Hypertension Mother CV disease Paternal Grandfather Breast cancer Paternal Grandmother Relation Status Comments Father Maternal Grandfather Maternal Grandmother Mother Paternal Grandfather Paternal Grandmother Social History Tobacco Use Types Packs/Day Years Used Date Smoking Tobacco: Former Cigarettes Q uit: 07/17/1984 Smokeless Tobacco: Never Tobacco Cessation:Counseling Given: No Alcohol Use Standard Drinks/Week Comments Yes 1 [...] Orientation Straight 11/21/2019 11 :14 AM EDT Last Filed Vital Signs Vital Sign Reading Time Taken Comments Blood Pressure 139/88 09/30/2024 3:31 PM EDT Pulse 78 09/30/2024 3:31 PM EDT Temperature 36.7 C (98.1 F) 09/30/2024 3:31 PM EDT Respiratory Rate 16 09/30/2024 3:31 PM EDT Oxygen Saturation 100% 09/30/2024 3:31 PM EDT Inhaled Oxygen Concentration - - Weight 76.7 kg (169 lb) 05/17/2021 1:35 PM EDT Height 170.2 cm (5' 7 ) 05/17/2021 1:35 PM EDT Body Mass Index 26.47 05/17/2021 1:35 PM EDT Plan of Treatment Health Maintenance Due Date Last Done Comments Adult Td,Tdap Booster 1960 DEPRESSION SCREENING 1971 SMOKING Hx and SMOKELESS TOBACCO SCREENING 1972 HEPATITIS C SCREENING 1977 HIV ONE-TIME SCREENING (18-65 YEARS) 1977 COLOGUARD 2004 FIT TEST 2004 FOBT 2004 SIGMOIDOSCOPY 2004 VIRTUAL COLONOSCOPY 2004 PNEUMOCOCCAL VACCINES (50+ years) (2 of 2 - PCV) 06/15/2017 06/15/2016 PAP SMEAR 06/16/2021 06/16/2016 CREATININE LEVEL 11/23/2022 11/23/2021, 09/2020, 09/15/2020, Additional history exists POTASSIUM LEVEL 11/23/2022 11/23/2021, 08/0 09/2020, 09/15/2020, Additional history exists OSTEOPOROSIS SCREENING INITIAL (ONE-TIME) 2024 08/01/2017 INFLUENZA VACCINE (#1) 2025 05/04/2016 MAMMOGRAM 03/10/2025 03/10/2023, 0801/2022, 03/01/2021, Additional history exists COVID-19 VACCINE ( season) 2025 11/04/2020, 10/14/2020 BLOOD PRESSURE 04/02/2025 09/30/2024 COLONOSCOPY 08/03/2025 08/03/2020 COLORECTAL CANCER SCREENING 08/03/2025 LIPID PANEL 06/01/2026 06/01/2021, 11/0 03/2020, 05/08/2019, Additional history exists RSV VACCINE (1 - 1-dose 75+ series) 2034 ZOSTER VACCINES Completed 09/25/2018, 07/14/2018 HEPATITIS A VACCINES Aged Out No long er eligible based on patient's age to complete this topic HIB VACCINES Aged Out No longer eligi ble based on patient's age to complete this topic MENINGOCOCCAL VACCINES (ACWY) Aged Out No longer eligible based on patient's age to complete this topic MENINGOCOCCAL VACCINES (B) Aged Out N o longer eligible based on patient's age to complete this topic Medical Devices Not on file Procedures Procedure Name Priority Date/Time Associated Diagnosis Comments BI MAMMOGRAM OUTSIDE (NO INTERPRETATION) Routine 03/10/2023 12:00 AM EDT BASIC METABOLIC PANEL (BMP) Routine 11/23/2021 10:25 AM EDT Hypertension, unspecified type Elevated glucose LIPID PANEL Routine 06/01/2021 7:48 AM EST Hypertension, unspecified type ENDOSCOPY, COLON 08/03/2020 7:27 AM EST BD DXA AXIAL (SPINE) WITH HIP Routine 08/01/2017 12:53 PM EST Ulcerative colitis with complication, unspecified location HM PAP SMEAR FOR RESULT ENTRY ONLY Routine 06/16/2016 from Last 3 Months or Most Recently Relevant to Health Maintenance Results * Mammogram Outside (No Interpretation) (03/10/2023 12:00 AM EDT) Narrative Record, 12/27/2023 2:57 PM EDT This study is for PACS storage only and not for interpretation. Procedure Note Record, 12/27/2023 This study is for PACS storage only and not for interpretation. us Unknown Unknown MD PEREZ OUTSIDE IMAGING W/OUT INT ERPRETATION Final Result * Basic metabolic panel (11/23/2021 10:25 AM EDT) SODIUM 139 133 - 146 mmol/L [facility] CHLORIDE 101 96 - 108 mmol/L [facility] POTASSIUM 4.3 3.3 - 5.1 mmol/L [facility] CO2 30 21 - 35 mmol/L [facility] BUN 14 6 - 19 mg/dL [facility] CREATININE 0.50 0.5 - 1.5 mg/dL [facility] GLUCOSE 96 70 - 99 mg/dL [facility] CALCIUM 9.5 8.4 - 10.3 mg/dL [facility] EGFR 106 >59 mL/min/1.7 3m2 [facility] Comment:Estimated glomerular filtration rate calculated using the CKD-EPI refit equation. ANION GAP 12 10 - 20 mmol/L [facility] Blood 11/23/2021 10:2 5 AM EDT 11/23/2021 10:29 AM EDT us Lydia MARINELLI LAB BLOOD BKR ORDERABLES Final Result [address] [address] * (ABNORMAL) Lipid panel (06/01/2021 7:48 AM EST) HDL 61 mg/dL [facility] Comment: Interpretation <40 mg/dL: Low HDL cholesterol (major risk factor for CHD) Greater than or equal to 60 mg/dL: High HDL cholesterol ( negative risk factor for CHD) HDL - cholesterol is affected by a number of factors, e.g. smoking, excerise, hormones, sex and age. CHOLESTEROL 223 0 - 240 mg/dL [facility] TRIGLYCERIDES 136 30 - 160 mg/dL [facility] LDL 135(H) 50 - 129 mg/dL [facility] Comment: LDL levels in terms of risk for coronary heart disease: <100 mg/dL: Optimal 100-129 mg/dL: Near or above optimal 130-159 mg/dL: Borderline high 160-189 mg/dL: High >190 mg/dL: Very High CARDIAC RISK RATIO 3.7 3.3 - 4.4 [facility] Blood 06/01/2021 7:48 AM EST 06/01/2021 7:53 AM EST us Lydia MARINELLI LAB BLOOD BKR ORDERABLES Final Result [address] [address] * ENDOSCOPY, COLON (08/03/2020 7:27 AM EST) Narrative Transcriptions Corbin Skinner MD - 08/03/2020 7:27 AM EST Patient Name: Yeimy Randall Attending MD:: CORBIN SKINNER MD Procedure Date: 08/03/2020 7:27 AM Date of : 1960 Age: 59 Admit Type: Outpatient Gender: Female Room: [place] [address] Referring MD: Lydia Johnson MD Exam Type: Colonoscopy Indications: 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 Risks specifically discussed include but are not limited to medication reactions, missed lesions, bleeding, perforation, or the need for emergentsurgery. Throughout the procedure, the patient's bloodpressure, pulse, end-tidal CO2, and oxygen saturations were monitored continuously. The Olympus adult variable colonoscope CF-SK250M #2was introduced through the anus and advanced to the terminal ileum. The colonoscopy was performedwithout difficulty. The patient tolerated the procedurewell. The quality of the bowel preparation was good. Complications: No immediate complications. Estimated blood loss:None. Findings: The perianal and digital rectal examinations were normal. A continuous area of nonbleeding ulcerated mucosawith no stigmata of recent bleeding was present in the rectum. This is mild and extends only 2 cm above dentate line. The recto-sigmoid colon, sigmoid colon, descending colon, splenic flexure, transverse colon, hepatic flexure, ascending colon, cecum, appendicealorifice, ileocecal valve, ileum, rectum (on retroflexion) and ascending colon (on retroflexion) appeared normal. Impression: - Mucosal ulceration. - The recto-sigmoid colon, sigmoid colon, descending colon, splenic flexure, transverse colon, hepatic flexure, ascending colon, cecum, appendicealorifice, ileocecal valve, terminal ileum and rectum arenormal. - No specimens collected. Recommendation: - Discharge patient to home. - Resume previous diet. - Continue present medications. - Await pathology results. - Repeat colonoscopy in 5 years for surveillance. - I will send you pathology results by letter. Ifyou do not get results in 3 weeks telephone my office. CORBIN SKINNER MD 08/03/2020 8:17:14 AM This report has been signed electronically. 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 All rights reserved. The codes documented in this report are preliminary and upon salesperson used cars reviewmay be revised to meet current compliance requirements. Procedure Date: 08/03/2020 7:27:[address] [place] [id number] [place] Lydia MARINELLI GI PROCEDURE ORDERABLES Final R esult * BD DXA AXIAL (SPINE) WITH HIP (08/01/2017 12:53 PM EST) Anatomical Region Laterality Modality Bone Density Bone Density 08/01/2017 1:00 PM EST Impressions 08/01/2017 1:02 PM EST Normal bone mineral density at all 3 sites assessed. S/S: Estrogen deficiency, bone density screening POS - [id number] Narrative 08/01/2017 1:02 PM EST This is a 56-year-old postmenopausal patient. Evaluation of the lumbar spine and both hips is obtained and appears appropriate. The lumbar spine from L1 through L2 discloses a total bone mineral density of 1.211 g/cm2 with a T-score of 2.1. This is in the normal range. The right hip has a total bone mineral density of 1.070 g/cm2 with a T-score of 1.0 this is in the normal range. The left hip has a total bone mineral density of 1.086 g/cm2 for a T-score of 1.2. This is in the normal range. Procedure Note Omar Hanson MD - 08/01/2017 This is a 56-year-old postmenopausal patient. Evaluation of the lumbar spine and both hips is obtained and appearsappropriate. The lumbar spine from L1 through L2 discloses a total bone mineral densityof 1.211 g/cm2 with a T-score of 2.1. This is in the normal range. The right hip has a total bone mineral density of 1.070 g/cm2 with aT-score of 1.0 this is in the normal range. The left hip has a total bone mineral density of 1.086 g/cm2 for a T-scoreof 1.2. This is in the normal range. IMPRESSION: Normal bone mineral density at all 3 sites assessed. S/S: Estrogen deficiency, bone density screening POS - [id number] Lydia MARINELLI IMG BD BONE DENSITY DEXA Final Result * PAP SMEAR FOR RESULT ENTRY ONLY (06/16/2016) Pap smear NIL HPV NEG (-) Historical Provider HEALTH MAINTENANCE Final Result from Last 3 Months or Most Recently Relevant to Health Maintenance Insurance MEDICARE PART A & B Member Subscriber Plan / Payer (Ef fective 2024-Present) Name:Yeimy Randall Member ID:[id number] Relation to Subscriber:Self Name:Yeimy Randall Subscriber ID:[id number] Payer ID:[id number] Group ID:Not on file Type:Medicare Address: [employer] [facility] [address] [place] [address] HUMAN MEDICARE SUPPLEMENT MEDICARE PART A & B [employer] MEDICARE SUPPLEMENT MEDICARE PART A & B [employer] MEDICARE SUPPLEMENT MEDICARE PART A & B [facility] MEDICARE SUPPLEMENT MEDICARE PART A & B [facility] MEDICARE SUPPLEMENT MEDICARE PART A & B Member Subscriber Plan / Payer ( fective 2024-) Name:Yeimy Randall Member ID:[id number] Relation to Subscriber:Self Name:Yeimy Randall Subscriber ID:[id number] Payer ID:[id number] Group ID:Not on file Type:Medicare Address: [facility] [employer] [facility] [address] [place] [id number] [employer] MEDICARE SUPPLEMENT Advance Directives For more information, please contact: [phone] (9AM - 5PM [facility], Monday-Monday) * Full Code (Presumed) (Latest Code Status on File) Date Activated Date Inactivated Comments 04/03/2018 10:47 AM 04/03/2018 6:41 PM Care Teams Prize Fighter Relationship Specialty Start Date End Date Renetta Olmstead PA [address] [place] [address] PCP - General Physician Jewelry Mold Maker 09/30/24 Additional Source Comments The information contained in this document represents components of the legal health record. It is not the complete legal health record.[facility]
--- OUTSIDE RECORDS SUMMARY | 2025-06-18 12:28 | XMS_ITS | Encounter Summary ---
Author Organization [facility] Address [address] [facility] [address] [place] [address] Phone Care Team Providers Care Professor Of Literacy Name Role Phone Lydia Johnson Primary Care Provider Marlene Gonzalez MD Primary Care Provider [phone] Lydia Johnson Primary Care Provider [phone] Marlene Gonzalez MD Primary Care Provider Renetta Olmstead Primary Care Provider [phone] Encounter Details Date Type Department Care Team (Late st Contact Info) Description 05/30/2017 Ancillary Orders Virtual Department [address] [place] [address] Lydia Johnson PA [address] [place] [address] [email or web address] Ulcerative colitis with complication, unspecified location Social History Tobacco Use Types Packs/Day Years [...] documented as of this encounter Results * BD DXA AXIAL (SPINE) WITH HIP [...] bone density screening POS - [id number] Lydia PEREZ BD BONE DENSITY DEXA Final Result documented in this encounter Visit Diagnoses Diagnosis Ulcerative colitis with complication, unspecified location Ulcerative colitis with complication, unspecified location documented in this encounter Additional Health Concerns Infection Onset Date Last Indicated Resolved Time C. diff 10/07/2020 10/07/202011/0611/06/2020 1:23 AM EDT documented as of this encounter Care Teams Professor Of Literacy Relationship Specialty Start Date End Date Lydia Johnson PA [address] [facility] [place] [address] [email or web address] PCP - General 05/04/17 Marlene Gonzalez MD [address] [place] [address] [email or web address] PCP - General Internal Medicine 06/01/17 06/25/17 Lydia Johnson PA [address] [place] [address] [place] [address] [email or web address] PCP - General Unknown Provider Specialty 06/26/17 03/01/22 Marlene Gonzalez MD [address] [place] [address] [email or web address] PCP - General Internal Medicine 03/02/22 09/29/24 Renetta Olmstead PA [address] [place] [id number] PCP - General Physician Operations Label Clerk 09/30/24 documented as of this encounter Additional Source Comments The information contained in this document represents components of the legal health record. It is not the complete legal health record.[facility]
--- OUTSIDE RECORDS SUMMARY | 2025-06-18 12:28 | XMS_ITS | Encounter Summary ---
Author Organization [facility] Address [address] [place] [address] Phone Care Team Providers Care Chief Pilot Name Role Phone Marlene Gonzalez MD Primary Care Provider [phone] Lydia Johnson Primary Care Provider [phone] Marlene Gonzalez MD Primary Care Provider [phone] Renetta Olmstead Primary Care Provider [phone]- [phone] Reason for Referral * MRI/CAT Scan - Closed Specialty Diagnoses / Procedures Referred By Contac t Referred To Contact Radiology Diagnoses Low back pain, unspecified back pain laterality, unspecified chronicity, with sciatica presence unspecified Procedures MRI Lumbar Spine Lydia Johnson PA Phone: tel: fax: [email or web address] Referral ID Status Reason Start Date Expiration Date Visits Re quested Visits Authorized [id number] Closed 06/01/2017 06/01/2018 1 1 Encounter Details Date Type Department Care Team (Late st Contact Info) Description 06/01/2017 Ancillary Orders Virtual Department [address] [place] [address] Lydia Johnson PA [address] [place] [address] [email or web address] Low back pain, unspecified back pain laterality, unspecified chronicity, with sciatica presence unspecified Social History Tobacco Use Types Packs/Day Years [...] as of this encounter Results * MRI LUMBAR SPINE (BONE) WITHOUT CONTRAST (06/02/2017 1:28 PM EST) Anatomical Region Laterality Modality L-spine Magnetic Resonan ce 06/02/2017 1:41 PM EST Impressions 06/02/2017 1:55 PM EST Chronic degenerative disc disease and central canal stenosis at the L3-4, L4-5, and L5-S1 levels grossly unchanged from 07/05/2014. Left para facet cyst at L5 compromising the left lateral recess. Mild L1-2 disc bulge. POS - [id number] Narrative 06/02/2017 1:55 PM EST TECHNIQUE: Exam performed on a 1.5 Lisa high-field MRI scanner. Sagittal T1, T2 and STIR, axial T1 and T2 sequences were obtained. FINDINGS: Comparison is made with most recent prior MR of 07/05/2014. On the sagittal sequences no focal disc protrusion or central canal stenosis are demonstrated at the T11-12 or T12-L1 levels. L1-2: There is a mild left paramedian disc bulge now present without focal disc protrusion or central canal stenosis. Neural foramina are patent. L2-L3: No focal disc protrusion or central canal stenosis. Hypertrophic facet arthropathy contributes to minimal bilateral recess stenosis. Neural foramina are patent. L3-L4: There is chronic disc space narrowing, disc desiccation, and broad-based hypointense disc bulge overall unchanged. There is chronic although disc material does bulge into the neural foramina bilaterally, particularly on the right, there is no gross mass effect upon the exiting L3 nerve roots. Mild to moderate central canal and prominent bilateral recess stenosis due to hypertrophic facet arthropathy and ligamentum flavum hypertrophy. L4-L5: There is chronic and slightly progressive disc space narrowing with disc desiccation present. No focal disc protrusion is identified. Chronic central canal and bilateral recess stenosis of moderate degree is again noted with hypertrophic facet arthropathy and ligamentum flavum hypertrophy present. There is chronic left neural foraminal narrowing due to disc bulge and right neural foraminal narrowing due to vertebral body endplate spurring but without overt mass effect upon the exiting L4 nerve roots. L5-S1: No focal disc protrusion. Mild chronic central canal stenosis. There is a new left para facet cyst bulging into the canal, measuring approximately 7 x 3 mm in transverse dimensions. There is advanced chronic degenerative facet arthropathy. Neural foramina are grossly patent. No acute abnormality of vertebral body marrow signal is noted. Visualized portions of the distal conus are unremarkable. No vertebral body compression deformities present. There is fatty infiltration of the paraspinal musculature without discrete paraspinal mass is seen. Procedure Note Michelle Guzman MD - 06/02/2017 TECHNIQUE: Exam performed on a 1.5 Lisa high-field MRI scanner. SagittalT1, T2 and STIR, axial T1 and T2 sequences were obtained. FINDINGS: Comparison is made with most recent prior MR of 07/05/2014. On the sagittal sequences no focal disc protrusion or central canalstenosis are demonstrated at the T11-12 or T12-L1 levels. L1-2: There is a mild left paramedian disc bulge now present without focaldisc protrusion or central canal stenosis. Neural foramina are patent. L2-L3: No focal disc protrusion or central canal stenosis. Hypertrophicfacet arthropathy contributes to minimal bilateral recess stenosis.Neural foramina are patent. L3-L4: There is chronic disc space narrowing, disc desiccation, andbroad-based hypointense disc bulge overall unchanged. There is chronicalthough disc material does bulge into the neural foramina bilaterally,particularly on the right, there is no gross mass effect upon the exitingL3 nerve roots. Mild to moderate central canal and prominent bilateralrecess stenosis due to hypertrophic facet arthropathy and ligamentumflavum hypertrophy. L4-L5: There is chronic and slightly progressive disc space narrowing withdisc desiccation present. No focal disc protrusion is identified.Chronic central canal and bilateral recess stenosis of moderate degree isagain noted with hypertrophic facet arthropathy and ligamentum flavumhypertrophy present. There is chronic left neural foraminal narrowing dueto disc bulge and right neural foraminal narrowing due to vertebral bodyendplate spurring but without overt mass effect upon the exiting L4 nerveroots. L5-S1: No focal disc protrusion. Mild chronic central canal stenosis.There is a new left para facet cyst bulging into the canal, measuringapproximately 7 x 3 mm in transverse dimensions. There is advancedchronic degenerative facet arthropathy. Neural foramina are grosslypatent. No acute abnormality of vertebral body marrow signal is noted. Visualizedportions of the distal conus are unremarkable. No vertebral bodycompression deformities present. There is fatty infiltration of theparaspinal musculature without discrete paraspinal mass is seen. IMPRESSION: Chronic degenerative disc disease and central canal stenosis at the L3-4,L4-5, and L5-S1 levels grossly unchanged from 07/05/2014. Left para facetcyst at L5 compromising the left lateral recess. Mild L1-2 disc bulge. POS - [id number] Lydia MARINELLI IMG MR XSPECIALTY Final Result documented in this encounter Visit Diagnoses Diagnosis Low back pain, unspecified back pain laterality, unspecified chronicity, with sciatica presence unspecified Low back pain, unspecified back pain laterality, unspecified chronicity, with sciatica presence unspecified documented in this encounter Additional Health Concerns Infection Onset Date Last Indicated Resolved Time C. diff 10/07/2020 10/07/2020 11/06/2020 1:23 AM EDT documented as of this encounter Care Teams Chief Pilot Relationship Specialty Start Date End Date Marlene Gonzalez MD [address] [place] [phone] PCP - General Internal Medicine 06/01/17 06/25/17 Lydia Johnson PA [address] [place] [phone] [email or web address] PCP - General Unknown Provider Specialty 06/26/17 03/01/22 Marlene Gonzalez MD [address] [place] [address] [email or web address] PCP - General Internal Medicine 03/02/22 09/29/24 Renetta Olmstead PA [address] [place] [address] PCP - General Physician Waxer Tender 09/30/24 documented as of this encounter Additional Source Comments The information contained in this document represents components of the legal health record. It is not the complete legal health record.[facility]
--- OUTSIDE RECORDS SUMMARY | 2025-06-18 12:28 | XMS_ITS | Clinical Summary ---
Author Organization [facility] Address [address] [place] [address] Care Team Providers Care Dispatcher Ship Pilot Name Role Phone OlmsteadRenetta ku Primary Care Provider Social History Tobacco Use [...] (2 of 2 - PCV) 06/15/2017 06/15/2016 Mammogram 03/02/2024 03/02/2022, 02/14, 02/28/2020, Additional history exists Alcohol/Substance Use Screening 07/17/2024 Health Care Proxy Review 07/17/2024 Influenza Vaccine (#1) 2025 , 05/02/2022, 05/04/2016 COVID-19 Vaccine (2024- season) 2025 06/21/2021, 11/04/2020, 10/14/2020 RSV Vaccine (60+ years old and patients) (1 - 1-dose 75+ series) 2034 Zoster Vaccines Completed 09/25/2018, 07/14/2018 Hepatitis B Vaccines Aged Out No long er eligible based on patient's age to complete this topic Insurance [facility] Care Teams Dispatcher Ship Pilot Relationship Specialty Start Date End Date Renetta Olmstead [address] [place] [address] PCP - General Internal Medicine 08/18/23
--- OUTSIDE RECORDS SUMMARY | 2025-06-18 12:28 | XMS_ITS | Encounter Summary ---
Author Organization [facility] Address [address] [address] Phone Care Team Providers Care Artificial Breast Fabricator Name Role Phone Lydia Johnson Primary Care Provider Marlene Gonzalez MD Primary Care Provider Renetta Olmstead Primary Care Provider [phone] Encounter Details Date Type Department Care Team (Late st Contact Info) Description 08/28/2019 Ancillary Orders Virtual Department [address] [place] [address] Lydia Johnson PA [address] [place] [address] [email or web address] Breast screening Social History Tobacco Use Types [...] MAMMOGRAM SCREENING WITH TOMOSYNTHESIS WITH CAD (BILATERAL) (02/28/2020 8:10 AM EDT) Anatomical Region Laterality Modality Breast Left, Breast Right, Breast Bilateral Bila teral Mammography 02/28/2020 6:54 PM EDT Impressions 02/28/2020 6:58 PM EDT BILATERAL BREASTS: Negative, no evidence of malignancy. Normal interval follow- up is recommended in 12 months. BI-RADS: BI-RADS CATEGORY: 1 - Negative. DENSITY: The breast tissue is heterogeneously dense, which may obscure small masses Narrative 02/28/2020 6:58 PM EDT STUDY: Bilateral screening mammography with tomosynthesis and CAD TECHNIQUE: Bilateral full-field digital screening mammography is obtained and read in conjunction with computer-aided detection. Tomosynthesis as well as 2-D C view imaging were obtained. COMPARISON: Comparison made to multiple prior, most recent November 21, 2018, and most remote November 06, 2013. BREAST COMPOSITION: The breasts are heterogeneously dense, which may obscure small masses. BILATERAL BREASTS: No significant masses, calcifications or other abnormalities are seen. Lydia MARINELLI IMG MG EXAMS Final Result documented in this encounter Visit Diagnoses Diagnosis Breast screening Breast screening, unspecified Breast screening Breast screening, unspecified documented in this encounter Additional Health Concerns Infection Onset Date Last Indicated Resolved Time C. diff 10/07/2020 10/07/2020 11/06/2020 1:23 AM EDT documented as of this encounter Care Teams Artificial Breast Fabricator Relationship Specialty Start Date End Date Lydia Johnson PA [address] [place] [phone] [email or web address] PCP - General Unknown Provider Specialty 06/26/17 03/01/22 Marlene Gonzalez MD [address] [place] [phone] [email or web address] PCP - General Internal Medicine 03/02/22 09/29/24 Renetta Olmstead PA [address] [place] [phone] PCP - General Physician Patient Manager 09/30/24 documented as of this encounter Additional Source Comments The information contained in this document represents components of the legal health record. It is not the complete legal health record.[facility]
--- OUTSIDE RECORDS SUMMARY | 2025-06-18 12:28 | XMS_ITS | Encounter Summary ---
Author Organization [facility] Address [address] [facility] [address] [place] [address] Phone Care Team Providers Care Real Estate Underwriter Name Role Phone Lydia Johnson Primary Care Provider [phone] Marlene Gonzalez MD Primary Care Provider Renetta Olmstead Primary Care Provider [phone] Encounter Details Date Type Department Care Team (Late st Contact Info) Description 2017 Transcribe Orders [facility] Phleb Main [address] [place] [address] Lydia Johnson PA [address] [place] [address] [email or web address] Social History Tobacco Use Types Packs/Day Years [...] documented as of this encounter Care Teams Real Estate Underwriter Relationship Specialty Start Date End Date Lydia Johnson PA [address] [place] [phone] [email or web address] PCP - General Unknown Provider Specialty 06/26/17 03/01/22 Marlene Gonzalez MD [address] [place] [phone] [email or web address] PCP - General Internal Medicine 03/02/22 09/29/24 Renetta Olmstead PA [address] [place] [phone] PCP - General Physician Nuclear Powerplant Mechanic Helper 09/30/24 documented as of this encounter Additional Source Comments The information contained in this document represents components of the legal health record. It is not the complete legal health record.[facility]
--- OUTSIDE RECORDS SUMMARY | 2025-06-18 12:28 | XMS_ITS | Encounter Summary ---
Author Organization [facility] Address [address] [facility] [address] [place] [address] Phone Care Team Providers Care Physician Asst Name Role Phone Lydia Johnson Primary Care Provider Marlene Gonzalez MD Primary Care Provider Renetta Olmstead Primary Care Provider [phone] Encounter Details Date Type Department Care Team (Latest Contact Info) Description 06/12/2019 Transcribe Orders [facility] Phleb Ara [address] [address] Linda Magallon PA [address] [place] [address] Diarrhea, unspecified type (Primary Dx); Generalized abdominal pain Social History Tobacco Use Types Packs/Day Years [...] documented as of this encounter Results * C-Reactive Protein (06/12/2019 2:34 PM EST) C REACTIVE PROTEIN 3.7 0.0 - 4.0 mg/L [facility] Blood 06/12/2019 2:34 PM EST 06/12/2019 2:42 PM EST us Linda MARINELLI LAB BLOOD BKR ORDERABLES Fi nal Result Performing Organization Address City/[facility]/ZIP Co de Phone Number [address] [address] * Comprehensive metabolic panel (06/12/2019 2:34 PM EST) SODIUM 140 133 - 146 mmol/L [facility] POTASSIUM 4.1 3.3 - 5.1 mmol/L [facility] CHLORIDE 101 96 - 108 mmol/L [facility] CO2 28 21 - 35 mmol/L [facility] BUN 13 6 - 19 mg/dL [facility] CREATININE 0.60 0.5 - 1.5 mg/dL [facility] GLUCOSE 99 70 - 99 mg/dL [facility] ALBUMIN 4.7 3.9 - 4.8 g/dL [facility] TOTAL PROTEIN 7.3 6.5 - 8.0 g/dL [facility] CALCIUM 9.7 8.4 - 10.3 mg/dL [facility] ALKALINE PHOSPHATASE 62 39 - 117 U/L [facility] TOTAL BILIRUBIN 0.2 0.0 - 1.2 mg/dL [facility] AST 19 0 - 37 U/L [facility] ALT 21 0 - 40 U/L [facility] GLOBULIN 2.6 1 - 4.8 g/dL [facility] EGFR 100 >59 mL/min/1.7 3m2 [facility] Comment:If patient is black, multiply result by 1.159. Estimated glomerular filtration rate calculated using the CKD-EPI equation. ANION GAP 15 10 - 20 mmol/L [facility] Blood 06/12/2019 2:34 PM EST 06/12/2019 2:42 PM EST us Linda MARINELLI LAB BLOOD BKR ORDERABLES Fi nal Result Performing Organization Address City/[facility]/ZIP Co de Phone Number [address] [address] * (ABNORMAL) CBC and differential (06/12/2019 2:34 PM EST) WBC 8.04 3.40 - 11.20 K/uL [facility] RBC 4.54 3.80 - 4.80 M/uL [facility] HGB 13.3 12.0 - 15.0 g/dL [facility] HCT 40.7 36.0 - 46.0 % [facility] PLT 317 130 - 400 K/uL [facility] MCV 89.6 79.0 - 98.0 fL [facility] MCH 29.3 27.0 - 34.8 pg [facility] MCHC 32.7 31.5 - 36.0 g/dL [facility] RDW 12.7 10.8 - 14.6 % [facility] MPV 10.4 9.4 - 12.4 fl [facility] NRBC 0.00 0.00 /100 WBCs [facility] ABSOLUTE NRBC 0.00 0.00 K/uL [facility] DIFF METHOD Auto [facility] NEUTS 62.7 45.30 - 77.70 % [facility] LYMPHS 28.7 12.30 - 39.70 % [facility] MONOS 7.7 4.10 - 12.80 % [facility] EOS 0.1 0 - 7.2 % [facility] BASOS 0.6 0 - 2.80 % [facility] Granulocytes, immature (%) 0.2 0.0 - 0.9 % [facility] ABSOLUTE NEUTS 5.03 1.40 - 7.70 K/uL [facility] ABSOLUTE LYMPHS 2.31 0.60 - 3.20 K/uL [facility] ABSOLUTE MONOS 0.62(H) 0.11 - 0.59 K/uL [facility] ABSOLUTE EOS 0.01 0.01 - 0.50 K/uL [facility] ABSOLUTE BASOS 0.05 0.00 - 0.08 K/uL [facility] Granulocytes, immature 0.02 0.00 - 0.05 K/uL [facility] Blood 06/12/2019 2:34 PM EST 06/12/2019 2:42 PM EST us Linda MARINELLI LAB BLOOD BKR ORDERABLES Fi nal Result [facility] [address] [place] [address] documented in this encounter Visit Diagnoses Diagnosis Diarrhea, unspecified type- Primary Generalized abdominal pain Abdominal pain, generalized documented in this encounter Additional Health Concerns Infection Onset Date Last Indicated Resolved Time C. diff 10/07/2020 10/07/2020 11/06/2020 1:23 AM EDT documented as of this encounter Care Teams Physician Asst Relationship Specialty Start Date End Date Lydia Johnson PA [address] [place] [phone] [email or web address] PCP - General Unknown Provider Specialty 06/26/17 03/01/22 Marlene Gonzalez MD [address] [place] [address] [email or web address] PCP - General Internal Medicine 03/02/22 09/29/24 Renetta Olmstead PA [address] [place] [address] PCP - General Physician Buildings Painter 09/30/24 documented as of this encounter Additional Source Comments The information contained in this document represents components of the legal health record. It is not the complete legal health record.[facility]
--- OUTSIDE RECORDS SUMMARY | 2025-06-18 12:28 | XMS_ITS | Encounter Summary ---
Author Organization [facility] Address [address] [place] [address] Phone Care Team Providers Care Creative Coordinator Name Role Phone Lydia Johnson Primary Care Provider [phone] Marlene Gonzalez MD Primary Care Provider Renetta Olmstead Primary Care Provider [phone] Encounter Details Date Type Department Care Team (Latest Contact Info) Description 09/15/2020 Transcribe Orders [facility] [address] Floor [place], [place] [id number] Lydia Johnson PA [address] [place] [address] [email or web address] Elevated glucose (Primary Dx); Hypertension, unspecified type; Fatigue, unspecified type; Paresthesia Social History Tobacco Use Types Packs/Day Years [...] documented as of this encounter Results * Vitamin B12 (09/15/2020 3:34 PM EST) VITAMIN B12 336 232 - 1,245 pg/mL [facility] Blood 09/15/2020 3:34 PM EST 09/15/2020 3:40 PM EST [facility] LAB BLOOD BKR ORDERABLES Final Result Performing Organization Address [facility]/ZIP Co de Phone Number [address] [address] * Hemoglobin A1c (09/15/2020 3:34 PM EST) Pathologist [facility] HEMOGLOBIN A1C 5.8 4.3 - 5.8 % [facility] Blood 09/15/2020 3:34 PM EST 09/15/2020 3:40 PM EST [facility] BKR ORDERABLES Final Result Performing Organization Address [facility]/ZIP Co de Phone Number [address] [address] * Folate (09/15/2020 3:34 PM EST) Pathologist [facility] FOLIC ACID 19.1 4.2 - 19.9 ng/mL [facility] Blood 09/15/2020 3:34 PM EST 09/15/2020 3:40 PM EST [facility] BLOOD BKR ORDERABLES Final Result Performing Organization Address [facility] Co de Phone Number [address] [address] * CBC and differential (09/15/2020 3:34 PM EST) Pathologist [facility] WBC 7.96 4.00 - 11.00 K/uL [facility] Comment:Note Reference Range updates to all CBC and Differential results. RBC 4.59 3.72 - 5.30 M/uL [facility] HGB 13.2 11.4 - 15.9 g/dL [facility] Comment:Note updated Referen ce Ranges for all CBC and Differential results. HCT 40.9 34.2 - 46.8 % [facility] PLT 311 140 - 430 K/uL [facility] MCV 89.1 78.0 - 97.0 fL [facility] MCH 28.8 25.0 - 33.0 pg [facility] MCHC 32.3 32.0 - 36.0 g/dL [facility] RDW 13.0 11.0 - 16.0 % [facility] MPV 10.2 8.4 - 12.8 fl [facility] NRBC 0.00 0 /100 WBCs [facility] ABSOLUTE NRBC 0.00 0 K/uL [facility] DIFF METHOD Auto [facility] NEUTS 58.4 43.0 - 75.0 % [facility] LYMPHS 32.4 18.2 - 47.4 % [facility] MONOS 7.7 4.00 - 11.00 % [facility] EOS 0.6 0.0 - 8.0 % [facility] BASOS 0.6 0.0 - 2.0 % [facility] Granulocytes, immature (%) 0.3 0.0 - 0.9 % [facility] ABSOLUTE NEUTS 4.65 1.80 - 7.70 K/uL [facility] ABSOLUTE LYMPHS 2.58 1.00 - 3.10 K/uL [facility] ABSOLUTE MONOS 0.61 0.20 - 0.80 K/uL [facility] ABSOLUTE EOS 0.05 0.00 - 0.80 K/uL [facility] ABSOLUTE BASOS 0.05 0.00 - 0.09 K/uL [facility] Granulocytes, immature 0.02 0.00 - 0.05 K/uL [facility] Blood 09/15/2020 3:34 PM EST 09/15/2020 3:40 PM EST us Lydia MARINELLI LAB BLOOD BKR ORDERABLES Final Result [facility] [address] [place] [address] * TSH with reflex (09/15/2020 3:34 PM EST) TSH 1.52 0.27 - 4.20 uIU/mL [facility] Blood 09/15/2020 3:34 PM EST 09/15/2020 3:40 PM EST us Lydia Alex HI LAB BLOOD BKR ORDERABLES Final Result [address] [address] * (ABNORMAL) Comprehensive metabolic panel (09/15/2020 3:34 PM EST) SODIUM 138 133 - 146 mmol/L [facility] POTASSIUM 4.2 3.3 - 5.1 mmol/L [facility] CHLORIDE 100 96 - 108 mmol/L [facility] CO2 27 21 - 35 mmol/L [facility] BUN 13 6 - 19 mg/dL [facility] CREATININE 0.70 0.5 - 1.5 mg/dL [facility] GLUCOSE 106(H) 70 - 99 mg/dL [facility] ALBUMIN 4.8 3.9 - 4.8 g/dL [facility] TOTAL PROTEIN 7.3 6.5 - 8.0 g/dL [facility] CALCIUM 9.7 8.4 - 10.3 mg/dL [facility] ALKALINE PHOSPHATASE 60 39 - 117 U/L [facility] TOTAL BILIRUBIN 0.2 0.0 - 1.2 mg/dL [facility] AST 28 0 - 37 U/L [facility] ALT 18 0 - 40 U/L [facility] GLOBULIN 2.5 1 - 4.8 g/dL [facility] EGFR 94 >59 mL/min/1.7 3m2 [facility] Comment:Estimated glomerular filtration rate calculated using the CKD-EPI equation. ANION GAP 15 10 - 20 mmol/L [facility] Blood 09/15/2020 3:34 PM EST 09/15/2020 3:40 PM EST us Lydia Alex HI LAB BLOOD BKR ORDERABLES Final Result [address] [place] [address] documented in this encounter Visit Diagnoses Diagnosis Elevated glucose- Primary Other abnormal glucose Hypertension, unspecified type Fatigue, unspecified type Paresthesia Disturbance of skin sensation documented in this encounter Additional Health Concerns Infection Onset Date Last Indicated Resolved Time C. diff 10/07/2020 10/07/2020 11/06/2020 1:23 AM EDT documented as of this encounter Care Teams Creative Coordinator Relationship Specialty Start Date End Date Lydia Johnson PA [address] [place] [id number] [email or web address] PCP - General Unknown Provider Specialty 06/26/17 03/01/22 Marlene Gonzalez MD [address] [place] [email or web address] PCP - General Internal Medicine 03/02/22 09/29/24 Renetta Olmstead PA [address] [place] [id number] PCP - General Physician Finance Director 09/30/24 documented as of this encounter Additional Source Comments The information contained in this document represents components of the legal health record. It is not the complete legal health record.[facility]
--- OUTSIDE RECORDS SUMMARY | 2025-06-18 12:28 | XMS_ITS | Clinical Summary ---
Author Organization [facility] Prior to 12/14/[address] [place] [id number] Care Team Providers Care Mass Spectroscopist Name Role Phone Renetta Olmstead PA-C Primary Care Provider [phone] Allergies Active Allergy Reactions Criticality Noted Date [...] kg (152 lb 6.4 oz) 10/24/2023 9:00 A M EDT Height 168.9 cm (5' 6.5 ) [...] (Colonoscopy) 2004 Breast Cancer Screening (Mammogram) 2009 Fall Risk Assessment 2024 Osteoporosis Screening (DEXA Scan) 2024 Pneumococcal Vaccine (2 of 2 - PCV) 2024 06/15/2016 COVID-19 Vaccine ( - 2024- season) 2025 06/21/2021, 11/04/2020, 10/14/2020 Influenza Vaccine (#1) 2025 , 05/06/2023, 05/02/2022, [...] Group Subscriber ID Effective Dates Phone Address [facility] [id number] 2022-Monisha t [address] [facility] [address] [place] [phone] HMO Care Teams Mass Spectroscopist Relationship Specialty Start Date End Date Renetta Olmstead, PAJuan RamonC PCP - General Physician Burner Operator 06/01/23
== END 2025-06-18 11:42 | disposition home or self-care (01) ==
LOC: HO.HMCFM 10:46
PROVIDERS: PCP Physician Assistant; Visit Provider Physician Assistant
DX: K76.0 Fatty (change of) liver, not elsewhere classified (principal); I10 Essential (primary) hypertension; E78.5 Hyperlipidemia, unspecified; R73.03 Prediabetes; M25.561 Pain in right knee; M25.562 Pain in left knee

== ENCOUNTER 2025-06-18 10:45 | Outpatient (REF) | payer MEDICARE, OTHER, SELFPAY ==
[2025-06-18 13:58] LABS: MANUAL DIFF FLAG NO
[2025-06-18 14:10] LABS: Hematocrit 39.7 % (37.0-47.0); Hemoglobin 12.7 g/dl (12.0-16.0); Imm Gran Abs Auto 0.02 X10*3/uL (0.00-0.03); Imm Gran Pct Auto 0.3 % (0.0-0.4); Lymphocytes Absolute Auto 2.3 X10*3/uL (1.2-4.9); Mean Corpuscular HGB Conc 32.0 g/dl (31.0-35.0); Mean Corpuscular Hemoglobin 28.4 pg (27.0-33.0); Mean Corpuscular Volume 88.8 fL (80.0-98.0); NRBC Abs Auto 0.000 X10*3/uL (0.0-0.012); NRBC Pct Auto 0.0 /100WBC (0.0-0.2); Platelet Count 294 X10*3/uL (160-400); Red Blood Count 4.47 X10*6/uL (4.20-5.50); White Blood Count 7.8 X10*3/uL (4.8-10.8)
--- OUTSIDE RECORDS SUMMARY | 2025-06-18 14:29 | XMS_ITS | Data Portability ---
Author Organization [facility], [facility] Address [address] [place] [address] Care Team Providers Care Social Services Assistant Name Role Phone FRIEDA GUILLORY Primary Care Provider Assessment Encounter Date Assessment Date Assessment LastModified [...] [facility], [address], [address], [place], [address], 01/14/2025 11:52:02 MRI, knee, w/o contrast - MRI LEFT KNEE RULE OUT LATERAL MMT 2024 025 [facility] ([facility]), [address], [place], [address], 01/20/2025 14:38:54 Medication Orders None recorded. Patient [...] a4ajBk vP9nXo QUaueC m3YtLR FvZlgJ JJ8mAn HZtai3 7d5276 AC0Kqb X2EV6C mKiQtr MwF INTERFACE [facility] [address], [place], [address], 09/02/2024 13:34:17 09/02/19 25 09/02/2024 XR, knee, 4 or more view http:/ [email or web address] ?Encry pted=s hAaTro YD8dLq bEUv6g %2BXZw aYqtaq 0bqfl% 2Fg9IQ a4ajBk vP9nXo QUaueC m3YtLR FvZlg JJ8mAn HZtai3 9k1370 AC0Kqb X2EV6C mKiQtr MwF INTERFACE [facility] [address] [facility] [address], [place], [address], 09/02/2024 13:34:19 10/14/19 25 10/11/2024 MRI, hip, w/o contr ast No observ ation record ed. [email or web address] [facility] [place] [address], [place], [address], 10/15/2024 12:32:21 01/15/20 25 01/14/2025 XR, knee, 4 or more view [email or web address] ?Encry pted=s hAaTro YD8dLq bEUv6g %2BXZw aYqtaq 0bqfl% 2Fg9IQ a4ajBk vP9nXo QUaueC m3YtLR FvZlgJ JJ8mAn HZtai3 7r0342 AC0Kla XyBVKS uKiQtr MwF INTERFACE [facility] [address], [place], [address], 01/14/2025 08:47:08 01/15/20 25 01/14/2025 XR, knee, 4 or more view [email or web address]:/ [email or web address] ?Encry pted=s hAaTro YD8dLq bEUv6g %2BXZw aYqtaq 0bqfl% 2Fg9IQ a4ajBk vP9nXo QUaueC m3YtLR FvZlgJ JJ8mAn HZtai3 5u4748 AC0Kla XyBVKS uKiQtr MwF INTERFACE [facility] [address], [place], [address], 01/14/2025 08:47:10 01/21/20 25 01/18/2025 MRI, knee, w/o contr ast [facility] Access ion Number : [id number] Patien t Name: Ailyn Randall Medica triny Record Number : [id number] Date of : 1960 Date of Exam: 2024 Referr ing Physic hillary: Amado Hernandez [address] [facility], [place] [address] Exam: MR Knee (C-) CPT 41131 - Left Room Descri ption: [facility] 3.0T MRI left knee Histor y: Pain Findin gs: Large comple x degene rative type tear involv ing the body and stem roller operator ior horn of the medial menisc us. The tear has horizo ntal and radial compon ents. This includ es a comple te radial compon ent at the stem roller operator ior horn - root juncti on. The body of the medial menisc us is sublux ed into the medial gutter Diffus e absenc e of weight bearin g surfac e cartil age in the medial compar tment. Small margin al osteop hytes in the medial compar tment Mild degene rative free edge radial tearin g with mild trunca tion of the body and stem roller operator ior horn of the latera l menisc us. Mild thinni ng and irregu larity within stem roller operator ior weight bearin g surfac e cartil [...] type tear involv ing the body and stem roller operator ior horn of the medial menisc us. Advanc ed medial compar tment chondr omalac ia. Mild degene rative free edge radial tearin g with mild trunca tion of the body and stem roller operator ior horn of the latera l menisc us. Mild latera l and patell ofemor al compar tment chondr omalac ia. Gonzalez' s cyst. Modera te knee joint effusi on. Electr onical ly Signed By: Hira Sam MD [email or web address] [facility] ([facility]) [address], [place], [address], 01/21/2025 14:35:40 Result Notes Documentation Provider Name and Address Organization Details Recorded Time Xr, Knee, 4 Or More View : [email or web address]? Encrypted=czZkVabUX8gDrrO Uv6g%4BIXaqFaqhn6vgca%2Fg 7BKc3lnGfxY6bRnEYcxmUw4Us CQGcPtlRVG2lKsENfbh72y343 5BK0XnwMaGWMIeXhGtoCxF Not Available Formerly [facility] 01/14/2025 08:47:09 Xr, Knee, 4 Or More View : [email or web address] Encrypted=vrRyCdvOR0bMmxC Uv6g%4OTYdiOxmhl0cudx%2Fg 1CTz5vxUbiE9eTgMLlwkBs6Ec HRYnPngEXC3aFbHEfbj67z181 1IK9XhuZmADBZfMkIfnIwJ Not Available [facility] 01/14/2025 08:47:11 Mri, Knee, W/o Contrast : [facility] Accession Number: [id number] Patient Name: Yeimy Randall Date of : 1960 Date of Exam: 01-18-2025 Referring Physician: Mable Hernandez [address] [place] [address] Exam: MR Knee (C-) CPT 87025 - Left Room Description: [facility] 3.0T MRI left knee History: Pain Findings: [...] [address], [place], [address], [facility] 01/21/2025 14:35:40 Problems Name Problem SNOMED Code Status Onset Date Resolution Date Notes Provider Name and Address Organization Details Recorded Time No complaints 854924384 Active Status : 'A'; Not Available [facility] 4 09:21:00 Osteoarthr itis of right knee joint 1287350662689 00 Active 2023 Tawny aCbral PA-C [address], [place], [address] , [facility] 4 19:20:04 Trochanter ic bursitis of right hip 1651688481473 00 Active 2023 Tawny Cabral PA-C [address], [place], [address] , [facility] 4 19:20:05 Pain of bilateral knee regions 3995788299714 02 Active 2024 TESHA josé [facility] 5 13:23:46 Osteoarthr itis of left knee joint 3096854497303 09 Active 2024 Tawny Cabral PA-C [address], [place], [address] , [facility] 5 14:22:22 Primary gonarthros is, bilateral 809328016 Active 2024 Tawny Cabral PA-C [address], [place], [address] , [facility] 5 14:32:49 Bilateral osteoarthr itis of knees 9302065903034 07 Active 2024 KAYLMAYNOR L'HEUREUX [facility] 5 14:44:29 Acute tear of lateral meniscus of left knee 1202734531042 9105 Active 2024 [facility] 5 09:36:55 Acute tear of medial meniscus of left knee 9055685969055 9107 Active 2024 [facility] 09:37:22 Problem Notes None recorded. Procedures Surgical History Date Name Laterality Status Provider Name and Address Organization Details Recorded Time 02/14/20 25 Sports Knee Asp & Inj completed Gagandeep Trejo MD [address], [place], [address], [facility] 02/13/2025 16:46:32 12/21/19 25 Knee Kenalog 40 1cc Injection, Bilateral completed Tawny Cabral PA-C [address], [place], [address], [facility] 12/20/2024 14:32:37 11/16/19 25 Spine Surgery completed [facility] 02/13/2025 15:56:58 10/04/19 74624 Therapeutic Exercise (1:1) completed Veena Romero, ARBEN [address], [place], [address], [facility] 10/03/2024 14:34:31 10/01/19 34862 Therapeutic Exercise (1:1) cancelled Pat Gan PT [address], [place], [address], [facility] 09/30/2024 08:15:22 09/20/19 90810 Therapeutic Exercise (1:1) completed Veena Romero, LUMBER GRADER [address], [place], [address], [facility] 09/19/2024 15:07:59 09/09/19 53566 Therapeutic Exercise (1:1) completed Pat Gan, PT [address], [place], [address], [facility] 09/12/2024 08:45:43 09/09/19 36654: Manual therapy completed Pat Gan, PT [address], [place], [address], [facility] 09/12/2024 08:45:53 09/05/19 80092 Therapeutic Exercise (1:1) completed Veena Romero, LUMBER GRADER [address], [place], [address], [facility] 09/05/2024 15:14:08 09/02/19 98980 Therapeutic Exercise (1:1) completed Veena Romero, LUMBER GRADER [address], [place], [address], [facility] 09/02/2024 15:56:37 08/26/19 50469 Therapeutic Exercise (1:1) completed Pat Gan, PT [address], [place], [address], [facility] 08/27/2024 06:44:07 08/21/19 79946 Therapeutic Exercise (1:1) completed Pat Gan, PT [address], [place], [address], [facility] 2024 00:12:25 08/21/19 78395: Low complexity PT Eval completed Pat Gan, PT [address], [place], [address], [facility] 2024 00:12:29 08/21/19 25 G8417 BMI Above Upper Parameters, F/U Documented completed Pat Gan, PT [address], [place], [address], [facility] 2024 00:17:14 08/21/19 25 G8427 Current Medication Documented completed Pat Gan, PT [address], [place], [address], [facility] 2024 00:17:19 08/16/19 25 Sports Knee 4&1 completed Tawnykristel Cabral PA-C [address], [place], [address], [facility] 08/16/2024 09:32:59 08/16/19 25 JZHip Inj completed Tawny Cabral PA-C [address], [place], [address], [facility] 08/16/2024 09:33:14 04/26/20 24 Sports Knee 4&1 completed Tawny Cabral PA-C [address], [place], [address], [facility] 04/26/2024 09:33:58 04/26/20 24 Hip Kenalog 1cc Injection, L/R completed Tawny Cabral PA-C [address], [place], [address], [facility] 04/26/2024 09:33:55 01/29/20 24 Sports Knee 4&1 completed Tawny Cabral PA-C [address], [place], [address], [facility] 01/28/2024 19:19:25 01/29/20 24 Hip Kenalog 1cc Injection, L/R completed Tawny Cabral PA-C [address], [place], [address], [facility] 01/28/2024 19:19:21 Gastrointestinal Surgery completed ANGELINE OLIVEROS [facility] 02/13/2025 15:56:58 Imaging Results None recorded. Procedure Notes None recorded. Medical Equipment None Reported. Allergies Allergen ID Allergen Name Allergen Category Reaction Reaction Severity Criticality Documentation Date Start Date Code Code System Note Provider Name and Address Organization Details Recorded Time 987686 Grass pollen (substanc e) environme nt,medica tion Not available Not available Not available 09/18/20232021 06401 7009 SNOMED Not Available [facility] 4 15:13:30 608537 cat dander environme nt Not available Not available Not available 01/29/2024 TESHA WILLIS arnav [facility] 4 13:11:14 748447 tree and shrub pollen environme nt,medica tion Not available Not available Not available 02/14/2025 ANGELINE OLIVEROS arnav [facility] 5 09:01:43 Medications Name Sig Start [...] Updated DateTime 12/20/2024 167.64 cm 26.6 kg/m2 20790.74 g KAYLIA L'HEUREUX [place] [facility] 12/20/2024 14:06:05 Date Recorded Body height Body mass index (BMI) Body weight Provider Name and Address Organization Details Last Updated DateTime 01/14/2025 167.64 cm 26.6 kg/m2 84398.74 g Julianneliviahan Mckenzie [facility] 01/14/2025 08:37:09 Date Recorded Body height Body mass index (BMI) Body weight Provider Name and Address Organization Details Last Updated DateTime 02/13/2025 167.64 cm 26.6 kg/m2 16893.74 g ANGELINE OLIVEROS [facility] 02/13/2025 15:57:10 Social History Question Answer Notes LastModified by Organizat ion Details LastModified Time Tobacco Smoking Status Former Smoker ANGELINE OLIVEROS [facility] 02/13/2025 15:56:55 When Did You Quit Smoking? 16+yearssinc elastcigaret te [id number] Information not available 02/13/2025 Have You Ever Been Counseled For Unhealthy Alcohol Use? No Information not available 01/29/2024 What Is Your Relationship Status? Information not available 01/29/2024 How Many Years Have You Smoked Tobacco? 10 [email or web address] Information not available 02/13/2025 Sex: Unknown Functional [...] e-cigarettes or vape? Never used electronic cigarettes [email or web address] Information not available 02/13/2025 Mental Status None recorded. Family History Nothing Reported. Medical History Condition Response Allergies/Hayfever Y Coronary Artery Disease N Anxiety/Depression N Breathing or lung disorders Y Emphysema N Nerve Disorders N Thyroid Problems N COPD N Pacemaker N Anemia N Kidney/Bladder Problems N Vascular Disease N Heart Trouble N Heart Attack ([place]) N Gastrointestinal Disease N Cholesterol N Diabetes [...] ICD10 Code Diagnosis IMO Codes Diagnosis Note [id number] Tawny Cabral PA-C [facility] [address] [place] [address] 01/29/2024 13:05:01 02/22/2024 14:41:13 Osteoarthritis of right knee joint 8195564006 23062 M17.11 Nature of patient's diagnosis and imaging [...] answered. Trochanter ic bursitis of right hip 1999793180 80295 M70.61 [id number] Tawny Cabral PA-C [facility] [address] [place] [address] 04/26/2024 08:48:05 05/22/2024 14:17:30 Osteoarthritis of right knee joint 7329763325 73435 M17.11 Nature of patient's diagnosis and imaging [...] answered. Trochanter ic bursitis of right hip 3852410073 26616 M70.61 [id number] Tawny Cabral PA-C [facility] [address] [facility] [place] [address] 08/16/2024 09:08:20 08/30/2024 10:46:53 Osteoarthritis of right knee joint 0960010509 95313 M17.11 Nature of the diagnosis discussed with [...] ty. Trochanter ic bursitis of right hip 0132664064 09911 M70.61 [id number] Pat Gan, PT [facility] [address] [facility] [address] 08/21/2024 11:36:25 08/21/2024 13:06:21 Trochanteric bursitis of right hip 6888090580 22129 M70.61 [id number] Pat Gan, PT [facility] [address] [facility] [address] 08/26/2024 16:11:17 08/26/2024 17:18:30 Trochanteric bursitis of right hip 1988776479 38727 M70.61 [id number] Tawny Cabral PA-C [facility] [address] [facility] [address] 09/02/2024 13:15:16 09/19/2024 12:21:53 Pain of bilateral knee regions 7512879647 85150 M25.561 M25.562 [id number] Osteoarthr itis of left knee joint 9488246839 71506 M17.12 [id number] Reviewed patient's imaging and exam findings in [...] were addressed and answered [id number] Veena Romero, LUMBER GRADER [facility] [address] [facility] [place] [address] 09/02/2024 15:11:41 09/02/2024 16:17:28 Trochanteric bursitis of right hip 5447485359 50341 M70.61 [id number] Veena Romero LUMBER GRADER [facility] [address] [place] [address] 09/05/2024 14:23:33 09/05/2024 15:40:32 Trochanteric bursitis of right hip 1851187450 63902 M70.61 [id number] Pat Gan, PT [facility] [address] [place] [address] 09/09/2024 16:15:30 09/09/2024 17:11:29 Trochanteric bursitis of right hip 4281150275 03280 M70.61 [id number] Veena Romero LUMBER GRADER [facility] [address] [place] [address] 09/19/2024 14:23:04 09/19/2024 15:27:53 Trochanteric bursitis of right hip 2041580717 48623 M70.61 [id number] Veena Romero LUMBER GRADER [facility] [address] [facility] [address] 10/03/2024 13:50:48 10/03/2024 15:04:10 Trochanteric bursitis of right hip 4462294550 49145 M70.61 [id number] Tawny Cabral PA-C [facility] [address] [facility] [place], [place] [address] 12/20/2024 13:42:53 01/03/2025 09:59:54 Primary gonarthrosis, bilateral 424943822 M17.0 [id number] Nature of the diagnosis discussed with the [...] management options versus total joint arthroplas ty. [id number] GRAEME [facility] [place] [address] [place] [address] 01/14/2025 08:33:54 01/28/2025 11:51:38 Pain of knee region 1119993209 M25.562 G89.29 [id number] Injury of articular cartilage of left knee joint 0318964466 3714144 S83.8X2A 10582075 [id number] MD [facility] [address] [place] [address] 02/13/2025 15:39:42 02/24/2025 14:29:03 Osteoarthritis of left knee joint 5366479419 55460 M17.12 [id number] Health Concerns Section Related Observation LastModified by Organization Detai ls LastModified Time None Recorded Concern Status LastModified by Organization Details LastModified Time None Recorded Advance Directives Directive None Recorded Payers Insurance Date Sequence Insurance Name Policy Number Policy Ruffin Covered Member ID Ruffin Member ID Guarantor Name 02/13/2025 [place] [employer] Yeimy Randall [id number] Yeimy Randall 02/13/2025 1 MEDICARE-[place] (MEDICARE) Yeimy Randall [id number] Yeimy Randall 02/13/2025 2 [employer] Yeimy Randall [id number] Yeimy Randall 02/13/2025 1 [place]: [facility] Yeimy Randall [id number] Yeimy Randall 02/13/2025 [place]ICARE [place]: [facility] Yeimy Randall [id number] Yeimy Randall 02/24/2025 2 [employer] (MEDICARE SUPPLEMENT) [id number] Yeimy Randall [id number] Yeimy Randall 02/13/2025 1 [facility] [id number] Yeimy Randall [id number] Yeimy Randall Notes Date Note Type Note [...] out any issues not radicular. Veena Romero, LUMBER GRADER [address], [place], [address], [facility] 09/19/2024 15:08:30 10/03/2024 text/html Patient reports the increase in sets after last session was too much. She messaged the MD about her hip pain and requested an MRI that is scheduled on Wednesday 10/11 with a followup to the MD to be scheduled after. She is also scheduled for lumbar surgery in November. Veena Romero, LUMBER GRADER [address], [place], [address], [facility] 10/03/2024 14:52:05 12/20/2024 text/html [...] were July 2024. Tawny Cabral PA-C [address], [place], [address], [facility] 12/20/2024 14:33:04 01/14/2025 text/html I am seeing the patient today under the supervision of Dr. Herndon who was available but who did not see the patient. HPI: Patient presents today [facility] regarding their left knee. They have had difficulty up and down stairs sitting standing. Problems ambulating. Mwuw-omc-gkhkehp medications are helping somewhat but not significantly. [...] LEAVING. QUESTIONS ANSWERED Mable Hernandez PA-C [address], [place], [address], [facility] 01/14/2025 09:18:59 02/13/2025 text/html HPI: Patient presents today as a follow-up from her prior [facility] regarding their left knee. They have had difficulty up and down stairs sitting standing. Problems ambulating. Rzcb-zgr-tqembul medications are helping somewhat but not significantly. [...] Trejo MD [address], [place], [address], [facility] 02/13/2025 16:46:48 OBGyn Episode No OBEpisode recorded.
[2025-06-18 14:52] LABS: Alanine Aminotransferase 35 U/L (0-31); Albumin Level 4.6 g/dL (3.5-5.0); Alkaline Phosphatase 87 U/L (39-117); Anion Gap 12 (12-20); Aspartate Amino Transferase 25 U/L (5-31); Blood Urea Nitrogen 18 mg/dL (9-16); Calcium 9.5 mg/dL (8.4-10.2); Carbon Dioxide 28 mmol/L (22-29); Chloride 105 mmol/L (96-108); Estimated Glomerular Filt Rate > 60; Potassium 4.0 mmol/L (3.3-5.1); Sodium 141 mmol/L (135-145); Total Protein 6.7 g/dL (6.5-8.0)
== END 2025-06-18 10:46 | disposition home or self-care (01) ==
LOC: HO.WFDLDS 10:45
PROVIDERS: PCP Physician Assistant; Visit Provider Physician Assistant
DX: R73.01 Impaired fasting glucose (principal); I10 Essential (primary) hypertension; E78.5 Hyperlipidemia, unspecified; R73.03 Prediabetes; K76.0 Fatty (change of) liver, not elsewhere classified; M25.561 Pain in right knee; M25.562 Pain in left knee
CPT/HCPCS: 36415; 80053; 82043; 82570; 83036; 84443; 85025; 99212